=== PATIENT | female | born 1945 | race Caucasian/White ===

== ENCOUNTER 2017-11-24 22:42 | Inpatient (IN) ==
[2017-11-24] MEDS ORDERED: ONDANSETRON 4 MG/2 ML VIAL IV STA (23:05)
[2017-11-24] MEDS ORDERED: methylPREDNISolone SOD SUC 125 MG/2 ML VIAL IV STA (23:05)
[2017-11-24] MEDS ORDERED: LEVOFLOXACIN INJ 750 MG in PREMIX 1 EACH IV STA (23:05)
[2017-11-24] MEDS ORDERED: ALBUTEROL NEB SOLN 5 MG/ML 20 ML/BOTTLE RESP TX SCH (23:30)
[2017-11-24 23:35] LABS: Basophils % 0.2 % (0.0-0.8); Eosinophils # 0.1 10*3/uL (0.0-0.87); Hematocrit 30.4 VOL% (35.7-47.0); Hemoglobin 8.5 GM/DL (12.0-16.0); Immature Granulocytes % 0.5 %; Immature Granulocytes Absolute 0.05 #; Lymphocytes # 0.8 10*3/uL (1.4-4.0); Lymphocytes % 8.5 % (21.3-54.2); Mean Corpuscular Hemoglobin 23 PG (27-34); Mean Corpuscular Volume 80.4 FL (87-102); Mean Platelet Volume 9.7 FL (9.6-12.0); Monocytes # 0.6 10*3/uL (0.11-0.8); Monocytes % 6.6 % (1.7-12.7); Neutrophils # 7.6 10*3/uL (1.4-7.4); Neutrophils % 83.2 % (38.7-73.9); Platelet Count 238 T/CUMM (130-400); Red Blood Count 3.78 MC/CUMM (3.8-5.5); Red Cell Distribution Width 21.4 % (9.3-17.3); White Blood Count 9.2 T/CUMM (4-12)
[2017-11-24] MEDS ORDERED: NALOXONE 0.4 MG/ML VIAL ONE (23:40)
[2017-11-24] MEDS ORDERED: NALOXONE 0.4 MG/ML VIAL IV STA ×2 (23:40→23:43)
[2017-11-24 23:41] LABS: INR 0.9; PT Patient Result 9.4 SECS; Partial Thromboplastin Time 25.6 SECS (0-40)
[2017-11-24 23:48] LABS: Alanine Aminotransferase 16 U/L (13-56); Alkaline Phosphatase 95 U/L (45-117); Aspartate Amino Transferase 17 U/L (0-37); Bilirubin,Total < 0.39 MG/DL (0.2-1.0); Blood Urea Nitrogen 6 MG/DL (7-18); Calcium 8.4 MG/DL (8.5-10.1); Glucose 129 MG/DL (74-106); Osmolality,Calculated 278.4 MOS/KG (273-304); Potassium 3.9 MMOL/L (3.5-5.1); Sodium 140 MMOL/L (136-145); Total Protein 7.4 G/DL (6.4-8.3)
[2017-11-24] MEDS ORDERED: FUROSEMIDE 40 MG/4 ML VIAL IV STA (23:54)
[2017-11-24 23:58] LABS: Troponin I Only < 0.015 NG/ML (0.00-0.045)
[2017-11-25 00:09] LABS: Apearance,Urine Slightly Hazy (Clear); Bacteria,Urine Occasional /HPF (Few); Bilirubin,Urine Negative (Negative); Blood, Urine Negative (Negative); Glucose,Urine (UA) Negative (Negative); Granular Casts,Urine 3 /LPF (0-1); Hyaline Casts,Urine 47 /LPF (0-3); Ketones,Urine Negative (Negative); Mucus,Urine Few /LPF (Occasional); Nitrite,Urine Negative (Negative); Protein,Urine 30 MG/DL; RBC,Urine 2 /HPF (0-4); Squamous Epithelial Cell,Urine Occasional /HPF (0-10); Urine Color Yellow (Yellow); Urine Specific Gravity 1.014 (1.001-1.035); Urine Urobilinogen < 2.0 EU/DL (0.2-1.0); WBC,Urine 2 /HPF (0-6)
[2017-11-25 00:20] LABS: Barbiturates Screen,Urine Negative (Negative); Benzodiazepines Screen,Urine Negative (Negative); Cannabinoid Screen,Urine Negative (Negative); Opiate Screen,Urine Positive (Negative); Phencyclidine Screen,Urine Negative (Negative)
[2017-11-25 00:35] LABS: Hypochromasia 1+
[2017-11-25 00:36] LABS: Anisocytosis 1+; Poikilocytosis 1+; Polychromasia Slight; Target Cells Slight
[2017-11-25] MEDS ORDERED: ALBUTEROL/IPRATROPIUM 3 ML NEB RESP TX STA (01:35)
[2017-11-25] MEDS ORDERED: ENOXAPARIN 100 MG/ML SYRINGE SUBCUT ONE (01:52)
[2017-11-25] MEDS ORDERED: oxyCODONE/ACETAMINOPHEN 5-325 MG TABLET PO PRN (01:52)
[2017-11-25 02:50] LABS: ABG Base Excess 11.2 MMOL/L (-2.5-2.5); ABG HCO3 34.7 MMOL/L (20-26); ABG Oxygen Saturation 80.6 % (95-100); ABG PO2 58.2 MM HG (80-95); ABG TCO2 43.8 MMOL/L (23-27); Allen Test Positive; Pt O2 Delivery Device Other
[2017-11-25 02:58] LABS: ABG PH 7.112 (7.35-7.45)
[2017-11-25] MEDS ORDERED: ALBUTEROL 1.25 MG/3 ML NEB RESP TX PRN (03:00)
[2017-11-25] MEDS: methylPREDNISolone SOD SUC 40 MG/1 ML VIAL IV SCH ×4 (05:26→23:18)
[2017-11-25 05:50] LABS: ABG Base Excess 11.5 MMOL/L (-2.5-2.5); ABG Oxygen Saturation 76.9 % (95-100); ABG PO2 53.1 MM HG (80-95); ABG TCO2 45.1 MMOL/L (23-27)
[2017-11-25 05:53] LABS: ABG PH 7.083 (7.35-7.45)
[2017-11-25] MEDS ORDERED: NALOXONE 0.4 MG/ML VIAL ONE (06:17)
[2017-11-25] MEDS ORDERED: NALOXONE 0.4 MG/ML VIAL IV ONE (06:21)
[2017-11-25] MEDS: ALBUTEROL/IPRATROPIUM 3 ML NEB RESP TX SCH ×3 (07:16→19:11)
[2017-11-25 07:51] LABS: Pt O2 Delivery Device BIPAP
[2017-11-25 07:54] LABS: ABG Base Excess 13.8 MMOL/L (-2.5-2.5); ABG HCO3 37.6 MMOL/L (20-26); ABG Oxygen Saturation 94.2 % (95-100); ABG PO2 76.5 MM HG (80-95); ABG TCO2 43.4 MMOL/L (23-27)
[2017-11-25 07:57] LABS: ABG PH 7.208 (7.35-7.45)
[2017-11-25] MEDS ORDERED: FUROSEMIDE 40 MG/4 ML VIAL ONE (08:31)
[2017-11-25] MEDS: FUROSEMIDE 40 MG/4 ML VIAL IV SCH ×2 (08:47→16:01)
[2017-11-25 11:56] LABS: Allen Test Positive; Pt O2 Delivery Device BIPAP
[2017-11-25 11:57] LABS: ABG Base Excess 18.5 MMOL/L (-2.5-2.5); ABG HCO3 42.5 MMOL/L (20-26); ABG Oxygen Saturation 92.3 % (95-100); ABG PH 7.333 (7.35-7.45); ABG PO2 62.9 MM HG (80-95)
[2017-11-25 11:58] LABS: ABG PCO2 90.3 MM HG (35-48)
[2017-11-25] MEDS: PANTOPRAZOLE 40 MG TABLET PO SCH (16:01)
[2017-11-25] MEDS: ENOXAPARIN 100 MG/ML SYRINGE SUBCUT SCH (16:01)
[2017-11-25] MEDS: THEOPHYLLINE 5.33 MG/ML 30 ML/BOTTLE PO SCH ×2 (16:01→23:18)
[2017-11-25] MEDS: LEVOFLOXACIN INJ 750 MG in PREMIX 1 EACH IV SCH (23:18)
[2017-11-26] LABS: ABG Base Excess 20.6 MMOL/L (-2.5-2.5); ABG HCO3 44.8 MMOL/L (20-26); ABG Oxygen Saturation 86.3 % (95-100); ABG PH 7.417 (7.35-7.45); ABG PO2 52.6 MM HG (80-95); ABG TCO2 45.6 MMOL/L (23-27); Allen Test Positive; Pt O2 Delivery Device BIPAP
[2017-11-26 00:04] LABS: ABG PCO2 75.3 MM HG (35-48)
[2017-11-26] MEDS: ALBUTEROL/IPRATROPIUM 3 ML NEB RESP TX SCH ×4 (00:26→19:22)
[2017-11-26] MEDS: ENOXAPARIN 100 MG/ML SYRINGE SUBCUT SCH ×2 (03:50→14:35)
[2017-11-26 03:53] LABS: ABG Base Excess 20.6 MMOL/L (-2.5-2.5); ABG HCO3 44.7 MMOL/L (20-26); ABG Oxygen Saturation 86.1 % (95-100); ABG PCO2 65.7 MM HG (35-48); ABG PH 7.467 (7.35-7.45); ABG PO2 50.9 MM HG (80-95); ABG TCO2 44.5 MMOL/L (23-27); Allen Test Positive; Pt O2 Delivery Device BIPAP
[2017-11-26 04:31] LABS: Calcium 8.2 MG/DL (8.5-10.1); Potassium 3.4 MMOL/L (3.5-5.1)
[2017-11-26] MEDS: methylPREDNISolone SOD SUC 40 MG/1 ML VIAL IV SCH ×4 (05:51→22:36)
[2017-11-26] MEDS: THEOPHYLLINE 5.33 MG/ML 30 ML/BOTTLE PO SCH ×3 (05:51→22:35)
[2017-11-26] MEDS: FUROSEMIDE 40 MG/4 ML VIAL IV SCH ×2 (08:59→16:48)
[2017-11-26] MEDS: PANTOPRAZOLE 40 MG TABLET PO SCH (08:59)
[2017-11-26] MEDS: LEVOFLOXACIN INJ 750 MG in PREMIX 1 EACH IV SCH (22:35)
[2017-11-27] MEDS: ALBUTEROL/IPRATROPIUM 3 ML NEB RESP TX SCH ×4 (01:05→19:43)
[2017-11-27] MEDS: ENOXAPARIN 100 MG/ML SYRINGE SUBCUT SCH ×2 (02:33→15:34)
[2017-11-27] MEDS: THEOPHYLLINE 5.33 MG/ML 30 ML/BOTTLE PO SCH ×3 (06:49→21:14)
[2017-11-27] MEDS: methylPREDNISolone SOD SUC 40 MG/1 ML VIAL IV SCH ×4 (06:49→22:02)
[2017-11-27 08:53] LABS: ABG Base Excess 16.9 MMOL/L (-2.5-2.5); ABG HCO3 40.8 MMOL/L (20-26); ABG Oxygen Saturation 92.8 % (95-100); ABG PCO2 51.5 MM HG (35-48); ABG PH 7.522 (7.35-7.45); ABG PO2 64.4 MM HG (80-95); ABG TCO2 38.8 MMOL/L (23-27)
[2017-11-27] MEDS: FUROSEMIDE 40 MG/4 ML VIAL IV SCH ×2 (09:06→15:34)
[2017-11-27] MEDS: PANTOPRAZOLE 40 MG TABLET PO SCH (09:08)
[2017-11-27] MEDS ORDERED: POTASSIUM CHLORIDE 20 MEQ TABLET PO ONE (13:43)
[2017-11-27] MEDS: LEVOFLOXACIN INJ 750 MG in PREMIX 1 EACH IV SCH (22:02)
[2017-11-28] MEDS: ALBUTEROL/IPRATROPIUM 3 ML NEB RESP TX SCH ×4 (01:10→20:17)
[2017-11-28] MEDS: ENOXAPARIN 100 MG/ML SYRINGE SUBCUT SCH ×2 (03:02→15:20)
[2017-11-28 03:18] LABS: Basophils % 0.2 % (0.0-0.8); Hematocrit 30.1 VOL% (35.7-47.0); Hemoglobin 9.2 GM/DL (12.0-16.0); Immature Granulocytes % 0.8 %; Immature Granulocytes Absolute 0.05 #; Lymphocytes # 0.5 10*3/uL (1.4-4.0); Lymphocytes % 7.1 % (21.3-54.2); Mean Corpuscular HGB Conc 30.6 GM/DL (32-36); Mean Corpuscular Hemoglobin 22 PG (27-34); Mean Corpuscular Volume 73.2 FL (87-102); Mean Platelet Volume 10.6 FL (9.6-12.0); Monocytes # 0.4 10*3/uL (0.11-0.8); Monocytes % 5.5 % (1.7-12.7); Neutrophils # 5.6 10*3/uL (1.4-7.4); Neutrophils % 86.4 % (38.7-73.9); Platelet Count 309 T/CUMM (130-400); Red Blood Count 4.11 MC/CUMM (3.8-5.5); Red Cell Distribution Width 20.4 % (9.3-17.3); White Blood Count 6.5 T/CUMM (4-12)
[2017-11-28 03:33] LABS: Calcium 8.1 MG/DL (8.5-10.1); Potassium 2.9 MMOL/L (3.5-5.1)
[2017-11-28] MEDS: methylPREDNISolone SOD SUC 40 MG/1 ML VIAL IV SCH ×3 (05:08→22:52)
[2017-11-28] MEDS: THEOPHYLLINE 5.33 MG/ML 30 ML/BOTTLE PO SCH (05:09)
[2017-11-28] MEDS: THEOPHYLLINE ER (24 HR) 300 MG CAPSULE PO SCH (08:47)
[2017-11-28] MEDS: PANTOPRAZOLE 40 MG TABLET PO SCH (08:48)
[2017-11-28] MEDS: POTASSIUM CHLORIDE 20 MEQ TABLET PO SCH ×2 (08:48→21:04)
[2017-11-28] MEDS ORDERED: FUROSEMIDE 40 MG/4 ML VIAL IV SCH (09:00)
[2017-11-28] MEDS: LEVOFLOXACIN INJ 750 MG in PREMIX 1 EACH IV SCH (22:53)
[2017-11-29] MEDS: ALBUTEROL/IPRATROPIUM 3 ML NEB RESP TX SCH ×4 (01:34→19:25)
[2017-11-29 03:59] LABS: Calcium 8.3 MG/DL (8.5-10.1); Osmolality,Calculated 281.7 MOS/KG (273-304); Potassium 3.6 MMOL/L (3.5-5.1)
[2017-11-29 04:42] LABS: ABG Base Excess 7.5 MMOL/L (-2.5-2.5); ABG HCO3 33.6 MMOL/L (20-26); ABG Oxygen Saturation 94.7 % (95-100); ABG PCO2 55.8 MM HG (35-48); ABG PH 7.398 (7.35-7.45); ABG PO2 83.3 MM HG (80-95); ABG TCO2 35.3 MMOL/L (23-27); Allen Test Positive; Pt O2 Delivery Device Other
[2017-11-29] MEDS: ENOXAPARIN 100 MG/ML SYRINGE SUBCUT SCH ×2 (06:19→19:15)
[2017-11-29] MEDS: methylPREDNISolone SOD SUC 40 MG/1 ML VIAL IV SCH ×3 (06:20→22:19)
[2017-11-29] MEDS: POTASSIUM CHLORIDE 20 MEQ TABLET PO SCH ×2 (08:45→20:26)
[2017-11-29] MEDS: THEOPHYLLINE ER (24 HR) 300 MG CAPSULE PO SCH (08:45)
[2017-11-29] MEDS: PANTOPRAZOLE 40 MG TABLET PO SCH (08:45)
[2017-11-29] MEDS: LEVOFLOXACIN INJ 750 MG in PREMIX 1 EACH IV SCH (22:19)
[2017-11-30] MEDS: ALBUTEROL/IPRATROPIUM 3 ML NEB RESP TX SCH ×4 (01:37→19:29)
[2017-11-30] MEDS: ENOXAPARIN 100 MG/ML SYRINGE SUBCUT SCH (06:50)
[2017-11-30] MEDS: methylPREDNISolone SOD SUC 40 MG/1 ML VIAL IV SCH ×2 (08:01→16:04)
[2017-11-30] MEDS: THEOPHYLLINE ER (24 HR) 300 MG CAPSULE PO SCH (09:06)
[2017-11-30] MEDS: POTASSIUM CHLORIDE 20 MEQ TABLET PO SCH ×2 (09:07→20:54)
[2017-11-30] MEDS: PANTOPRAZOLE 40 MG TABLET PO SCH (09:07)
[2017-12-01] MEDS: methylPREDNISolone SOD SUC 40 MG/1 ML VIAL IV SCH ×4 (00:24→23:23)
[2017-12-01] MEDS: LEVOFLOXACIN INJ 750 MG in PREMIX 1 EACH IV SCH ×2 (00:25→23:23)
[2017-12-01] MEDS: ALBUTEROL/IPRATROPIUM 3 ML NEB RESP TX SCH ×4 (01:22→19:39)
[2017-12-01 06:06] LABS: Basophils % 0.1 % (0.0-0.8); Hematocrit 29.6 VOL% (35.7-47.0); Hemoglobin 8.7 GM/DL (12.0-16.0); Immature Granulocytes % 2.1 %; Immature Granulocytes Absolute 0.23 #; Lymphocytes # 0.5 10*3/uL (1.4-4.0); Lymphocytes % 4.8 % (21.3-54.2); Mean Corpuscular HGB Conc 29.4 GM/DL (32-36); Mean Corpuscular Hemoglobin 22 PG (27-34); Mean Corpuscular Volume 75.3 FL (87-102); Mean Platelet Volume 10.4 FL (9.6-12.0); Monocytes # 0.4 10*3/uL (0.11-0.8); Monocytes % 3.4 % (1.7-12.7); Neutrophils # 9.9 10*3/uL (1.4-7.4); Neutrophils % 89.6 % (38.7-73.9); Platelet Count 311 T/CUMM (130-400); Red Blood Count 3.93 MC/CUMM (3.8-5.5); White Blood Count 11.1 T/CUMM (4-12)
[2017-12-01 06:27] LABS: Band Neutrophils 1 % (0-10); Lymphocytes 2 % (20-55); Segmented Neutrophils 94 % (50-85); Total Cells Counted 100
[2017-12-01 06:28] LABS: Calcium 8.7 MG/DL (8.5-10.1); Hypochromasia 1+; Osmolality,Calculated 280.7 MOS/KG (273-304); Ovalocytes Slight; Platelet Estimate Adequate; Potassium 4.4 MMOL/L (3.5-5.1)
[2017-12-01] MEDS ORDERED: ceFAZolin 1,000 MG VIAL ONE (07:39)
[2017-12-01] MEDS ORDERED: DESFLURANE 1 UNIT/15 MINUTE INH ONE (08:56)
[2017-12-01] MEDS ORDERED: PROPOFOL 200 MG/20 ML VIAL IV ONE (08:56)
[2017-12-01] MEDS ORDERED: fentaNYL 100 MCG/2 ML VIAL ONE (08:57)
[2017-12-01] MEDS ORDERED: GLYCOPYRROLATE 0.4 MG/2 ML VIAL ONE (08:57)
[2017-12-01] MEDS ORDERED: ETOMIDATE 40 MG/20 ML VIAL IV ONE (08:57)
[2017-12-01] MEDS ORDERED: MIDAZOLAM 2 MG/2 ML VIAL ONE (08:57)
[2017-12-01] MEDS ORDERED: ONDANSETRON 4 MG/2 ML VIAL ONE (08:57)
[2017-12-01] MEDS ORDERED: METOPROLOL TARTRATE 5 MG/5 ML VIAL IV ONE (08:57)
[2017-12-01] MEDS ORDERED: DEXAMETHASONE 10 MG/1 ML VIAL ONE (08:57)
[2017-12-01] MEDS ORDERED: ROCURONIUM 100 MG/10 ML VIAL IV ONE (08:58)
[2017-12-01] MEDS ORDERED: PHENYLEPHRINE 1 MG/10 ML SYRINGE IV ONE (08:58)
[2017-12-01] MEDS ORDERED: NEOSTIGMINE 10 MG/10 ML VIAL ONE (08:58)
[2017-12-01] MEDS ORDERED: ACETAMINOPHEN 1,000 MG/100 ML VIAL IV ONE (08:58)
[2017-12-01] MEDS: ONDANSETRON 4 MG/2 ML VIAL IV PRN ×4 (09:46→23:23)
[2017-12-01] MEDS: POTASSIUM CHLORIDE 20 MEQ TABLET PO SCH ×2 (10:32→20:36)
[2017-12-01] MEDS: THEOPHYLLINE ER (24 HR) 300 MG CAPSULE PO SCH (10:35)
[2017-12-01] MEDS: PANTOPRAZOLE 40 MG TABLET PO SCH (10:35)
[2017-12-01] MEDS: GABAPENTIN 100 MG CAPSULE PO SCH ×3 (10:54→20:36)
[2017-12-01] MEDS: SERTRALINE 25 MG TABLET PO SCH (10:55)
[2017-12-01] MEDS: CITALOPRAM 40 MG TABLET PO SCH (10:55)
[2017-12-01] MEDS: METHOCARBAMOL 500 MG TABLET PO SCH ×2 (10:55→20:36)
[2017-12-01] MEDS: busPIRone 10 MG TABLET PO SCH ×3 (10:55→20:36)
[2017-12-01] MEDS: risperiDONE 0.5 MG TABLET PO SCH (10:55)
[2017-12-01] MEDS: PROMETHAZINE 25 MG TABLET PO SCH ×3 (10:55→20:35)
[2017-12-01] MEDS: PENTOXIFYLLINE 400 MG TABLET PO SCH (10:55)
[2017-12-01] MEDS: FAMOTIDINE 20 MG TABLET PO SCH (11:02)
[2017-12-01] MEDS: oxyCODONE IR 5 MG TABLET PO PRN (20:36)
[2017-12-01] MEDS ORDERED: ZALEPLON 5 MG CAPSULE PO SCH (21:00)
[2017-12-01] MEDS ORDERED: MIRTAZAPINE 15 MG TABLET PO SCH (21:00)
[2017-12-02] MEDS: ALBUTEROL/IPRATROPIUM 3 ML NEB RESP TX SCH ×5 (01:01→19:37)
[2017-12-02] MEDS: oxyCODONE IR 5 MG TABLET PO PRN (03:58)
[2017-12-02] MEDS: ONDANSETRON 4 MG/2 ML VIAL IV PRN ×2 (05:41→13:33)
[2017-12-02] MEDS: FAMOTIDINE 20 MG TABLET PO SCH ×2 (05:41→09:53)
[2017-12-02] MEDS: methylPREDNISolone SOD SUC 40 MG/1 ML VIAL IV SCH ×2 (06:21→20:08)
[2017-12-02] MEDS: THEOPHYLLINE ER (24 HR) 300 MG CAPSULE PO SCH (09:52)
[2017-12-02] MEDS: SERTRALINE 25 MG TABLET PO SCH (09:52)
[2017-12-02] MEDS: POTASSIUM CHLORIDE 20 MEQ TABLET PO SCH ×2 (09:52→20:07)
[2017-12-02] MEDS: PANTOPRAZOLE 40 MG TABLET PO SCH (09:52)
[2017-12-02] MEDS: CITALOPRAM 40 MG TABLET PO SCH (09:53)
[2017-12-02] MEDS: busPIRone 10 MG TABLET PO SCH (09:53)
[2017-12-02] MEDS: PROMETHAZINE 25 MG TABLET PO SCH ×2 (09:54→20:08)
[2017-12-02] MEDS: METHOCARBAMOL 500 MG TABLET PO SCH (09:54)
[2017-12-02] MEDS: GABAPENTIN 100 MG CAPSULE PO SCH ×2 (09:54→20:07)
[2017-12-02] MEDS: PENTOXIFYLLINE 400 MG TABLET PO SCH (09:55)
[2017-12-02] MEDS: risperiDONE 0.5 MG TABLET PO SCH (09:55)
[2017-12-02] MEDS: ENOXAPARIN 30 MG/0.3 ML SYRINGE SUBCUT SCH (09:59)
[2017-12-02] MEDS ORDERED: methylPREDNISolone SOD SUC 40 MG/1 ML VIAL IV SCH (18:30)
[2017-12-02] MEDS: busPIRone 5 MG TABLET PO SCH (20:07)
[2017-12-02] MEDS: MIRTAZAPINE 15 MG TABLET PO SCH (20:08)
[2017-12-02] MEDS: oxyCODONE IR 5 MG TABLET PO SCH (20:08)
[2017-12-02] MEDS: ZALEPLON 5 MG CAPSULE PO PRN (20:08)
[2017-12-02] MEDS: LEVOFLOXACIN INJ 750 MG in PREMIX 1 EACH IV SCH (22:45)
[2017-12-03] MEDS: ALBUTEROL/IPRATROPIUM 3 ML NEB RESP TX SCH ×4 (00:54→19:01)
[2017-12-03 06:37] LABS: Basophils % 0.2 % (0.0-0.8); Hematocrit 29.8 VOL% (35.7-47.0); Hemoglobin 9.1 GM/DL (12.0-16.0); Immature Granulocytes Absolute 0.35 #; Lymphocytes % 11.3 % (21.3-54.2); Mean Corpuscular HGB Conc 30.5 GM/DL (32-36); Mean Corpuscular Hemoglobin 23 PG (27-34); Mean Corpuscular Volume 74.1 FL (87-102); Mean Platelet Volume 10.1 FL (9.6-12.0); Monocytes # 0.9 10*3/uL (0.11-0.8); Neutrophils # 6.6 10*3/uL (1.4-7.4); Neutrophils % 74.5 % (38.7-73.9); Platelet Count 350 T/CUMM (130-400); Red Blood Count 4.02 MC/CUMM (3.8-5.5); Red Cell Distribution Width 20.6 % (9.3-17.3); White Blood Count 8.8 T/CUMM (4-12)
[2017-12-03 06:54] LABS: Calcium 8.7 MG/DL (8.5-10.1); Potassium 4.6 MMOL/L (3.5-5.1)
[2017-12-03] MEDS: methylPREDNISolone SOD SUC 40 MG/1 ML VIAL IV SCH (09:20)
[2017-12-03] MEDS: ENOXAPARIN 30 MG/0.3 ML SYRINGE SUBCUT SCH (09:22)
[2017-12-03] MEDS: THEOPHYLLINE ER (24 HR) 300 MG CAPSULE PO SCH (09:23)
[2017-12-03] MEDS: busPIRone 5 MG TABLET PO SCH ×2 (09:23→20:21)
[2017-12-03] MEDS: PANTOPRAZOLE 40 MG TABLET PO SCH (09:23)
[2017-12-03] MEDS: FAMOTIDINE 20 MG TABLET PO SCH (09:23)
[2017-12-03] MEDS: PROMETHAZINE 25 MG TABLET PO SCH ×2 (09:23→20:21)
[2017-12-03] MEDS: oxyCODONE IR 5 MG TABLET PO SCH ×2 (09:24→20:21)
[2017-12-03] MEDS: risperiDONE 0.5 MG TABLET PO SCH (09:24)
[2017-12-03] MEDS: SERTRALINE 25 MG TABLET PO SCH (09:24)
[2017-12-03] MEDS: POTASSIUM CHLORIDE 20 MEQ TABLET PO SCH ×2 (09:24→20:20)
[2017-12-03] MEDS: PENTOXIFYLLINE 400 MG TABLET PO SCH (09:24)
[2017-12-03] MEDS: MELOXICAM 7.5 MG TABLET PO SCH (14:08)
[2017-12-03] MEDS: ONDANSETRON 4 MG/2 ML VIAL IV PRN (15:27)
[2017-12-03] MEDS: GABAPENTIN 100 MG CAPSULE PO SCH (20:21)
[2017-12-03] MEDS: MIRTAZAPINE 15 MG TABLET PO SCH (20:21)
[2017-12-03] MEDS: ZALEPLON 5 MG CAPSULE PO PRN (20:21)
[2017-12-03] MEDS: ALUMINUM/MAGNES/SIMETH MAX STR 30 ML UDCUP PO PRN (22:37)
[2017-12-03] MEDS: LEVOFLOXACIN INJ 750 MG in PREMIX 1 EACH IV SCH (22:37)
[2017-12-04] MEDS: ALBUTEROL/IPRATROPIUM 3 ML NEB RESP TX SCH ×4 (00:16→19:10)
[2017-12-04] MEDS: ALUMINUM/MAGNES/SIMETH MAX STR 30 ML UDCUP PO PRN (03:11)
[2017-12-04] MEDS: MELOXICAM 7.5 MG TABLET PO SCH (08:39)
[2017-12-04] MEDS: PANTOPRAZOLE 40 MG TABLET PO SCH (08:39)
[2017-12-04] MEDS: oxyCODONE IR 5 MG TABLET PO SCH ×2 (08:39→20:39)
[2017-12-04] MEDS: PENTOXIFYLLINE 400 MG TABLET PO SCH (08:40)
[2017-12-04] MEDS: PROMETHAZINE 25 MG TABLET PO SCH ×2 (08:40→20:39)
[2017-12-04] MEDS: SERTRALINE 25 MG TABLET PO SCH (08:41)
[2017-12-04] MEDS: FAMOTIDINE 20 MG TABLET PO SCH (08:41)
[2017-12-04] MEDS: busPIRone 5 MG TABLET PO SCH ×2 (08:42→20:39)
[2017-12-04] MEDS: risperiDONE 0.5 MG TABLET PO SCH (08:43)
[2017-12-04] MEDS: THEOPHYLLINE ER (24 HR) 300 MG CAPSULE PO SCH (08:43)
[2017-12-04] MEDS: POTASSIUM CHLORIDE 20 MEQ TABLET PO SCH ×2 (08:44→20:39)
[2017-12-04] MEDS ORDERED: predniSONE 10 MG TABLET PO SCH (09:00)
[2017-12-04] MEDS ORDERED: predniSONE 20 MG TABLET PO SCH (10:02)
[2017-12-04] MEDS: ENOXAPARIN 30 MG/0.3 ML SYRINGE SUBCUT SCH (10:39)
[2017-12-04] MEDS: MIRTAZAPINE 15 MG TABLET PO SCH (20:38)
[2017-12-04] MEDS: ZALEPLON 5 MG CAPSULE PO PRN ×2 (20:38→23:10)
[2017-12-04] MEDS: GABAPENTIN 100 MG CAPSULE PO SCH (20:39)
[2017-12-04] MEDS: LEVOFLOXACIN INJ 750 MG in PREMIX 1 EACH IV SCH (23:05)
[2017-12-05] MEDS: ALBUTEROL/IPRATROPIUM 3 ML NEB RESP TX SCH ×4 (00:05→20:06)
[2017-12-05] MEDS: MELOXICAM 7.5 MG TABLET PO SCH (08:07)
[2017-12-05] MEDS: FAMOTIDINE 20 MG TABLET PO SCH (08:07)
[2017-12-05] MEDS: oxyCODONE IR 5 MG TABLET PO SCH ×2 (08:08→20:26)
[2017-12-05] MEDS: THEOPHYLLINE ER (24 HR) 300 MG CAPSULE PO SCH (08:08)
[2017-12-05] MEDS: POTASSIUM CHLORIDE 20 MEQ TABLET PO SCH ×2 (08:08→20:26)
[2017-12-05] MEDS: PENTOXIFYLLINE 400 MG TABLET PO SCH (08:08)
[2017-12-05] MEDS: busPIRone 5 MG TABLET PO SCH ×2 (08:08→20:26)
[2017-12-05] MEDS: SERTRALINE 25 MG TABLET PO SCH (08:08)
[2017-12-05] MEDS: risperiDONE 0.5 MG TABLET PO SCH (08:09)
[2017-12-05] MEDS: PROMETHAZINE 25 MG TABLET PO SCH ×2 (08:09→20:26)
[2017-12-05] MEDS: PANTOPRAZOLE 40 MG TABLET PO SCH (08:09)
[2017-12-05] MEDS: ENOXAPARIN 30 MG/0.3 ML SYRINGE SUBCUT SCH ×2 (08:09→09:53)
[2017-12-05] MEDS: MIRTAZAPINE 15 MG TABLET PO SCH (20:26)
[2017-12-05] MEDS: GABAPENTIN 100 MG CAPSULE PO SCH (20:26)
[2017-12-06] MEDS: ALBUTEROL/IPRATROPIUM 3 ML NEB RESP TX SCH ×4 (01:04→19:31)
[2017-12-06 05:22] LABS: Basophils % 0.1 % (0.0-0.8); Eosinophils # 0.1 10*3/uL (0.0-0.87); Eosinophils % 1.7 % (0.00-10.9); Hematocrit 25.6 VOL% (35.7-47.0); Hemoglobin 7.7 GM/DL (12.0-16.0); Immature Granulocytes % 5.9 %; Immature Granulocytes Absolute 0.49 #; Lymphocytes # 2.1 10*3/uL (1.4-4.0); Lymphocytes % 25.1 % (21.3-54.2); Mean Corpuscular HGB Conc 30.1 GM/DL (32-36); Mean Corpuscular Hemoglobin 23 PG (27-34); Mean Corpuscular Volume 75.1 FL (87-102); Mean Platelet Volume 10.2 FL (9.6-12.0); Monocytes # 0.6 10*3/uL (0.11-0.8); Monocytes % 7.7 % (1.7-12.7); Neutrophils % 59.5 % (38.7-73.9); Platelet Count 278 T/CUMM (130-400); Red Blood Count 3.41 MC/CUMM (3.8-5.5); Red Cell Distribution Width 21.9 % (9.3-17.3); White Blood Count 8.3 T/CUMM (4-12)
[2017-12-06 05:33] LABS: Calcium 8.2 MG/DL (8.5-10.1); Osmolality,Calculated 278.5 MOS/KG (273-304)
[2017-12-06 05:48] LABS: Band Neutrophils 1 % (0-10); Eosinophils 1 % (0-10); Lymphocytes 23 % (20-55); Segmented Neutrophils 67 % (50-85); Total Cells Counted 100
[2017-12-06 05:49] LABS: Hypochromasia 1+; Ovalocytes Slight; Platelet Estimate Adequate
[2017-12-06] MEDS: PROMETHAZINE 25 MG TABLET PO SCH ×2 (10:55→20:55)
[2017-12-06] MEDS: PANTOPRAZOLE 40 MG TABLET PO SCH (10:55)
[2017-12-06] MEDS: busPIRone 5 MG TABLET PO SCH ×2 (10:55→20:55)
[2017-12-06] MEDS: risperiDONE 0.5 MG TABLET PO SCH (10:56)
[2017-12-06] MEDS: FAMOTIDINE 20 MG TABLET PO SCH (10:56)
[2017-12-06] MEDS: THEOPHYLLINE ER (24 HR) 300 MG CAPSULE PO SCH (10:56)
[2017-12-06] MEDS: MELOXICAM 7.5 MG TABLET PO SCH (10:56)
[2017-12-06] MEDS: PENTOXIFYLLINE 400 MG TABLET PO SCH (10:57)
[2017-12-06] MEDS: SERTRALINE 25 MG TABLET PO SCH (10:57)
[2017-12-06] MEDS: oxyCODONE IR 5 MG TABLET PO SCH ×2 (10:57→20:56)
[2017-12-06] MEDS: POTASSIUM CHLORIDE 20 MEQ TABLET PO SCH ×2 (10:57→20:55)
[2017-12-06] MEDS: ENOXAPARIN 30 MG/0.3 ML SYRINGE SUBCUT SCH (10:58)
[2017-12-06] MEDS: MIRTAZAPINE 15 MG TABLET PO SCH (20:55)
[2017-12-06] MEDS: GABAPENTIN 100 MG CAPSULE PO SCH (20:55)
[2017-12-06] MEDS: ZALEPLON 5 MG CAPSULE PO PRN (20:57)
[2017-12-07] MEDS: ALBUTEROL/IPRATROPIUM 3 ML NEB RESP TX SCH ×5 (00:31→23:49)
[2017-12-07] MEDS: MELOXICAM 7.5 MG TABLET PO SCH (10:49)
[2017-12-07] MEDS: PENTOXIFYLLINE 400 MG TABLET PO SCH (10:49)
[2017-12-07] MEDS: PANTOPRAZOLE 40 MG TABLET PO SCH (10:49)
[2017-12-07] MEDS: FAMOTIDINE 20 MG TABLET PO SCH (10:49)
[2017-12-07] MEDS: PROMETHAZINE 25 MG TABLET PO SCH ×2 (10:49→20:33)
[2017-12-07] MEDS: busPIRone 5 MG TABLET PO SCH ×2 (10:50→20:33)
[2017-12-07] MEDS: risperiDONE 0.5 MG TABLET PO SCH (10:50)
[2017-12-07] MEDS: oxyCODONE IR 5 MG TABLET PO SCH ×2 (10:50→20:34)
[2017-12-07] MEDS: THEOPHYLLINE ER (24 HR) 300 MG CAPSULE PO SCH (10:50)
[2017-12-07] MEDS: SERTRALINE 25 MG TABLET PO SCH (10:50)
[2017-12-07] MEDS: POTASSIUM CHLORIDE 20 MEQ TABLET PO SCH ×2 (10:51→20:35)
[2017-12-07] MEDS: ENOXAPARIN 30 MG/0.3 ML SYRINGE SUBCUT SCH (12:08)
[2017-12-07 16:32] LABS: % Iron Saturation 4.8 % (18-50)
[2017-12-07] MEDS: MIRTAZAPINE 15 MG TABLET PO SCH (20:33)
[2017-12-07] MEDS: GABAPENTIN 100 MG CAPSULE PO SCH (20:34)
[2017-12-07] MEDS: APIXABAN 2.5 MG TABLET PO SCH (20:34)
[2017-12-07] MEDS ORDERED: APIXABAN 5 MG TABLET PO SCH (21:00)
[2017-12-08 06:05] LABS: Eosinophils # 0.2 10*3/uL (0.0-0.87); Eosinophils % 2.6 % (0.00-10.9); Hematocrit 24.8 VOL% (35.7-47.0); Hemoglobin 7.3 GM/DL (12.0-16.0); Immature Granulocytes % 2.1 %; Immature Granulocytes Absolute 0.15 #; Lymphocytes # 1.6 10*3/uL (1.4-4.0); Lymphocytes % 22.6 % (21.3-54.2); Mean Corpuscular HGB Conc 29.4 GM/DL (32-36); Mean Corpuscular Hemoglobin 23 PG (27-34); Mean Corpuscular Volume 77.5 FL (87-102); Mean Platelet Volume 10.2 FL (9.6-12.0); Monocytes # 0.6 10*3/uL (0.11-0.8); Monocytes % 8.9 % (1.7-12.7); Neutrophils # 4.6 10*3/uL (1.4-7.4); Neutrophils % 63.8 % (38.7-73.9); Platelet Count 260 T/CUMM (130-400); Red Cell Distribution Width 22.3 % (9.3-17.3); White Blood Count 7.2 T/CUMM (4-12)
[2017-12-08] MEDS: ALBUTEROL/IPRATROPIUM 3 ML NEB RESP TX SCH ×2 (07:00→19:52)
[2017-12-08 07:08] LABS: Anisocytosis 2+; Band Neutrophils 2 % (0-10); Lymphocytes 26 % (20-55); Microcytosis 3+; Platelet Estimate Normal; Polychromasia 1+; Segmented Neutrophils 67 % (50-85); Target Cells 1+; Total Cells Counted 100
[2017-12-08] MEDS: FAMOTIDINE 20 MG TABLET PO SCH (09:10)
[2017-12-08] MEDS: PROMETHAZINE 25 MG TABLET PO SCH ×2 (09:11→20:15)
[2017-12-08] MEDS: PANTOPRAZOLE 40 MG TABLET PO SCH (09:11)
[2017-12-08] MEDS: busPIRone 5 MG TABLET PO SCH ×2 (09:11→20:15)
[2017-12-08] MEDS: THEOPHYLLINE ER (24 HR) 300 MG CAPSULE PO SCH (09:11)
[2017-12-08] MEDS: risperiDONE 0.5 MG TABLET PO SCH (09:12)
[2017-12-08] MEDS: POTASSIUM CHLORIDE 20 MEQ TABLET PO SCH ×2 (09:12→20:15)
[2017-12-08] MEDS: SERTRALINE 25 MG TABLET PO SCH (09:12)
[2017-12-08] MEDS: APIXABAN 2.5 MG TABLET PO SCH ×2 (09:12→20:15)
[2017-12-08] MEDS: oxyCODONE IR 5 MG TABLET PO SCH ×2 (09:13→20:16)
[2017-12-08] MEDS: PENTOXIFYLLINE 400 MG TABLET PO SCH (09:13)
[2017-12-08] MEDS ORDERED: IRON SUCROSE 200 MG in SODIUM CHLORIDE 0.9% 100 ML IV ONE (13:00)
[2017-12-08] MEDS: GABAPENTIN 100 MG CAPSULE PO SCH (20:15)
[2017-12-08] MEDS: MIRTAZAPINE 15 MG TABLET PO SCH (20:16)
[2017-12-08] MEDS: ZALEPLON 5 MG CAPSULE PO PRN (20:17)
[2017-12-09] MEDS: ALBUTEROL/IPRATROPIUM 3 ML NEB RESP TX SCH ×4 (07:55→19:20)
[2017-12-09] MEDS: PROMETHAZINE 25 MG TABLET PO SCH ×2 (09:19→20:44)
[2017-12-09] MEDS: THEOPHYLLINE ER (24 HR) 300 MG CAPSULE PO SCH (09:19)
[2017-12-09] MEDS: PANTOPRAZOLE 40 MG TABLET PO SCH (09:20)
[2017-12-09] MEDS: FAMOTIDINE 20 MG TABLET PO SCH (09:20)
[2017-12-09] MEDS: POTASSIUM CHLORIDE 20 MEQ TABLET PO SCH ×2 (09:20→20:46)
[2017-12-09] MEDS: APIXABAN 2.5 MG TABLET PO SCH ×2 (09:21→20:44)
[2017-12-09] MEDS: risperiDONE 0.5 MG TABLET PO SCH (09:21)
[2017-12-09] MEDS: busPIRone 5 MG TABLET PO SCH ×2 (09:21→20:44)
[2017-12-09] MEDS: SERTRALINE 25 MG TABLET PO SCH (09:21)
[2017-12-09] MEDS: oxyCODONE IR 5 MG TABLET PO SCH ×2 (09:22→20:45)
[2017-12-09] MEDS: PENTOXIFYLLINE 400 MG TABLET PO SCH (09:22)
[2017-12-09] MEDS: methylPREDNISolone SOD SUC 125 MG/2 ML VIAL IV SCH ×2 (16:00→23:33)
[2017-12-09] MEDS: GABAPENTIN 100 MG CAPSULE PO SCH (20:45)
[2017-12-09] MEDS: MIRTAZAPINE 15 MG TABLET PO SCH (20:45)
[2017-12-09] MEDS: ZALEPLON 5 MG CAPSULE PO PRN ×2 (20:45→23:23)
[2017-12-09] MEDS: FERROUS SULFATE 325 MG TABLET PO SCH (20:46)
[2017-12-10] MEDS: ALBUTEROL/IPRATROPIUM 3 ML NEB RESP TX SCH ×4 (00:36→18:51)
[2017-12-10 05:15] LABS: Basophils % 0.2 % (0.0-0.8); Hematocrit 26.3 VOL% (35.7-47.0); Hemoglobin 8.1 GM/DL (12.0-16.0); Immature Granulocytes Absolute 0.06 #; Lymphocytes # 0.3 10*3/uL (1.4-4.0); Lymphocytes % 5.2 % (21.3-54.2); Mean Corpuscular HGB Conc 30.8 GM/DL (32-36); Mean Corpuscular Hemoglobin 24 PG (27-34); Mean Corpuscular Volume 76.5 FL (87-102); Mean Platelet Volume 9.6 FL (9.6-12.0); Monocytes # 0.1 10*3/uL (0.11-0.8); Neutrophils # 5.4 10*3/uL (1.4-7.4); Neutrophils % 92.6 % (38.7-73.9); Platelet Count 256 T/CUMM (130-400); Red Blood Count 3.44 MC/CUMM (3.8-5.5); Red Cell Distribution Width 21.7 % (9.3-17.3); White Blood Count 5.8 T/CUMM (4-12)
[2017-12-10 05:42] LABS: Anisocytosis 2+; Band Neutrophils 3 % (0-10); Hypochromasia 2+; Lymphocytes 4 % (20-55); Macrocytosis 1+; Microcytosis 1+; Platelet Estimate Normal; Poikilocytosis 2+; Segmented Neutrophils 91 % (50-85); Total Cells Counted 100
[2017-12-10 05:43] LABS: Acanthocytes Few; Ovalocytes Few; Target Cells 1+
[2017-12-10 05:46] LABS: Calcium 8.9 MG/DL (8.5-10.1); Osmolality,Calculated 277.7 MOS/KG (273-304); Potassium 4.2 MMOL/L (3.5-5.1)
[2017-12-10] MEDS: THEOPHYLLINE ER (24 HR) 300 MG CAPSULE PO SCH (09:48)
[2017-12-10] MEDS: SERTRALINE 25 MG TABLET PO SCH (09:48)
[2017-12-10] MEDS: PANTOPRAZOLE 40 MG TABLET PO SCH (09:48)
[2017-12-10] MEDS: PROMETHAZINE 25 MG TABLET PO SCH ×2 (09:49→20:21)
[2017-12-10] MEDS: busPIRone 5 MG TABLET PO SCH ×2 (09:49→20:21)
[2017-12-10] MEDS: POTASSIUM CHLORIDE 20 MEQ TABLET PO SCH ×2 (09:49→20:21)
[2017-12-10] MEDS: FAMOTIDINE 20 MG TABLET PO SCH (09:49)
[2017-12-10] MEDS: PENTOXIFYLLINE 400 MG TABLET PO SCH (09:50)
[2017-12-10] MEDS: oxyCODONE IR 5 MG TABLET PO SCH ×2 (09:50→20:21)
[2017-12-10] MEDS: risperiDONE 0.5 MG TABLET PO SCH (09:50)
[2017-12-10] MEDS: FERROUS SULFATE 325 MG TABLET PO SCH ×2 (09:50→20:21)
[2017-12-10] MEDS: APIXABAN 2.5 MG TABLET PO SCH ×2 (09:50→20:21)
[2017-12-10] MEDS: methylPREDNISolone SOD SUC 125 MG/2 ML VIAL IV SCH ×2 (09:51→15:45)
[2017-12-10] MEDS: FUROSEMIDE 40 MG/4 ML VIAL IV SCH (16:39)
[2017-12-10] MEDS: NICOTINE 21 MG/24 HR PATCH TRANSDERM SCH (16:40)
[2017-12-10] MEDS: GABAPENTIN 100 MG CAPSULE PO SCH (20:21)
[2017-12-10] MEDS: ZALEPLON 5 MG CAPSULE PO PRN ×2 (20:21→23:35)
[2017-12-10] MEDS: MIRTAZAPINE 15 MG TABLET PO SCH (20:21)
[2017-12-11] MEDS: methylPREDNISolone SOD SUC 125 MG/2 ML VIAL IV SCH ×3 (00:50→16:55)
[2017-12-11] MEDS: ALBUTEROL/IPRATROPIUM 3 ML NEB RESP TX SCH ×3 (01:15→13:13)
[2017-12-11 05:10] LABS: Basophils % 0.1 % (0.0-0.8); Hematocrit 25.8 VOL% (35.7-47.0); Immature Granulocytes % 0.9 %; Immature Granulocytes Absolute 0.11 #; Lymphocytes # 0.3 10*3/uL (1.4-4.0); Lymphocytes % 2.8 % (21.3-54.2); Mean Corpuscular Hemoglobin 23 PG (27-34); Mean Platelet Volume 10.1 FL (9.6-12.0); Monocytes # 0.2 10*3/uL (0.11-0.8); Neutrophils # 11.2 10*3/uL (1.4-7.4); Neutrophils % 94.2 % (38.7-73.9); Platelet Count 263 T/CUMM (130-400); Red Blood Count 3.44 MC/CUMM (3.8-5.5); Red Cell Distribution Width 22.1 % (9.3-17.3); White Blood Count 11.9 T/CUMM (4-12)
[2017-12-11 05:34] LABS: Calcium 8.7 MG/DL (8.5-10.1); Osmolality,Calculated 282.5 MOS/KG (273-304)
[2017-12-11 06:17] LABS: Band Neutrophils 3 % (0-10); Lymphocytes 2 % (20-55); Platelet Estimate Normal; Segmented Neutrophils 95 % (50-85); Total Cells Counted 100
[2017-12-11 06:18] LABS: Anisocytosis 2+; Poikilocytosis 1+; Polychromasia 1+; Target Cells Few
[2017-12-11] MEDS: FUROSEMIDE 40 MG/4 ML VIAL IV SCH ×2 (10:08→16:54)
[2017-12-11] MEDS: NICOTINE 21 MG/24 HR PATCH TRANSDERM SCH (10:08)
[2017-12-11] MEDS: FAMOTIDINE 20 MG TABLET PO SCH (10:11)
[2017-12-11] MEDS: busPIRone 5 MG TABLET PO SCH (10:11)
[2017-12-11] MEDS: APIXABAN 2.5 MG TABLET PO SCH (10:12)
[2017-12-11] MEDS: SERTRALINE 25 MG TABLET PO SCH (10:12)
[2017-12-11] MEDS: PANTOPRAZOLE 40 MG TABLET PO SCH (10:12)
[2017-12-11] MEDS: risperiDONE 0.5 MG TABLET PO SCH (10:12)
[2017-12-11] MEDS: FERROUS SULFATE 325 MG TABLET PO SCH (10:12)
[2017-12-11] MEDS: THEOPHYLLINE ER (24 HR) 300 MG CAPSULE PO SCH (10:12)
[2017-12-11] MEDS: oxyCODONE IR 5 MG TABLET PO SCH (10:12)
[2017-12-11] MEDS: PENTOXIFYLLINE 400 MG TABLET PO SCH (10:13)
[2017-12-11] MEDS: POTASSIUM CHLORIDE 20 MEQ TABLET PO SCH (10:13)
[2017-12-11] MEDS: PROMETHAZINE 25 MG TABLET PO SCH (10:13)
[2017-12-11 16:33] VITALS: BP 141/86
== END 2017-12-11 16:25 | disposition swing bed (61) | DRG 981 ==
LOC: EDBD → EDUNIT# → N.ED 22:42 → N.CC 11-25 01:40 → N.EDINP 11-25 01:44 → SUATTDRO 11-25 01:44 → N.CC 11-25 02:14 → N.3E 12-02 13:24
PROVIDERS: ADMIT Family Medicine; ATTEND Internal Medicine

== ENCOUNTER 2018-06-25 00:46 | Inpatient (IN) ==
[2018-06-25] MEDS ORDERED: ALBUTEROL 2.5 MG/3 ML NEB RESP TX PRN (03:38)
[2018-06-25] MEDS ORDERED: ONDANSETRON 4 MG/2 ML VIAL IV PRN (03:38)
[2018-06-25] MEDS ORDERED: ACETAMINOPHEN 325 MG TABLET PO PRN (03:38)
[2018-06-25] MEDS ORDERED: PROMETHAZINE 25 MG/1 ML VIAL IM PRN (03:38)
[2018-06-25] MEDS ORDERED: GLUCAGON 1 MG VIAL IM PRN (03:53)
[2018-06-25] MEDS ORDERED: DEXTROSE 50% 25 GM/50 ML SYRINGE IV PRN (03:53)
[2018-06-25] MEDS ORDERED: NALOXONE 0.4 MG/ML VIAL ONE (04:18)
[2018-06-25] MEDS ORDERED: NALOXONE 0.4 MG/ML VIAL IV ONE (04:20)
[2018-06-25] MEDS: methylPREDNISolone SOD SUC 40 MG/1 ML VIAL IV SCH ×3 (04:47→21:24)
[2018-06-25] MEDS: ENOXAPARIN 120 MG/0.8 ML SYRINGE SUBCUT SCH ×2 (04:49→16:18)
[2018-06-25] MEDS: LEVOFLOXACIN INJ 750 MG in PREMIX 1 EACH IV SCH (04:59)
[2018-06-25 07:10] LABS: Basophils % 0.2 % (0.0-0.8); Hematocrit 27.6 VOL% (35.7-47.0); Immature Granulocytes % 2.5 %; Immature Granulocytes Absolute 0.11 #; Lymphocytes # 0.3 10*3/uL (1.4-4.0); Mean Corpuscular HGB Conc 25.4 GM/DL (32-36); Mean Corpuscular Hemoglobin 21 PG (27-34); Mean Corpuscular Volume 81.4 FL (87-102); Monocytes # 0.1 10*3/uL (0.11-0.8); Monocytes % 2.2 % (1.7-12.7); NRBC # 0.07 10*3/uL; Neutrophils % 89.1 % (38.7-73.9); Platelet Count 197 T/CUMM (130-400); Red Blood Count 3.39 MC/CUMM (3.8-5.5); Red Cell Distribution Width 23.7 % (9.3-17.3); White Blood Count 4.5 T/CUMM (4-12)
[2018-06-25] MEDS: ALBUTEROL/IPRATROPIUM 3 ML NEB RESP TX SCH ×3 (07:10→20:06)
[2018-06-25 07:23] LABS: Alanine Aminotransferase 11 U/L (13-56); Albumin 2.9 G/DL (3.4-5.0); Alkaline Phosphatase 76 U/L (45-117); Aspartate Amino Transferase 13 U/L (0-37); Blood Urea Nitrogen 15 MG/DL (7-18); Glucose 112 MG/DL (74-106); Osmolality,Calculated 278.5 MOS/KG (273-304); Potassium 4.1 MMOL/L (3.5-5.1); Sodium 139 MMOL/L (136-145); Total Protein 6.9 G/DL (6.4-8.3)
[2018-06-25 07:26] LABS: Lymphocytes 7 % (20-55); Nucleated Red Blood Cells 4 (0-5); Platelet Estimate Adequate; Segmented Neutrophils 91 % (50-85); Total Cells Counted 100
[2018-06-25 07:27] LABS: Hypochromasia 1+; Macrocytosis Slight; Ovalocytes Slight
[2018-06-25] MEDS: INSULIN REGULAR 100 UNIT/ML SUBCUT SCH ×4 (07:48→21:24)
[2018-06-25 07:53] LABS: Allen Test Positive; Pt O2 Delivery Device BIPAP
[2018-06-25] MEDS ORDERED: SODIUM CHLORIDE 0.9% 1,000 ML IV PRN (08:05)
[2018-06-25] MEDS ORDERED: FUROSEMIDE 20 MG/2 ML VIAL IV PRN (08:05)
[2018-06-25 08:15] LABS: ABG Base Excess 26.8 MMOL/L (-2.5-2.5); ABG HCO3 55.2 MMOL/L (20-26); ABG Oxygen Saturation 92.2 % (95-100); ABG PH 7.404 (7.35-7.45); ABG PO2 65.4 MM HG (80-95)
[2018-06-25 08:16] LABS: ABG PCO2 90.4 MM HG (35-48)
[2018-06-25] MEDS: AMINOPHYLLINE 1,000 MG in SODIUM CHLORIDE 0.9% 460 ML IV SCH (10:56)
[2018-06-25] MEDS ORDERED: FUROSEMIDE 20 MG/2 ML VIAL IV SCH (16:00)
[2018-06-25] MEDS: NYSTATIN POWDER 15 GM BOTTLE TOP SCH ×2 (17:28→21:43)
[2018-06-25] MEDS ORDERED: hydrALAZINE 20 MG/1 ML VIAL IV PRN (17:54)
[2018-06-25 20:15] LABS: Hematocrit 27.6 VOL% (35.7-47.0); Hemoglobin 7.8 GM/DL (12.0-16.0)
[2018-06-26] MEDS: ALBUTEROL/IPRATROPIUM 3 ML NEB RESP TX SCH ×4 (00:35→20:13)
[2018-06-26] MEDS: AMINOPHYLLINE 1,000 MG in SODIUM CHLORIDE 0.9% 460 ML IV SCH (04:33)
[2018-06-26] MEDS: LEVOFLOXACIN INJ 750 MG in PREMIX 1 EACH IV SCH (04:34)
[2018-06-26] MEDS: methylPREDNISolone SOD SUC 40 MG/1 ML VIAL IV SCH ×3 (05:06→21:21)
[2018-06-26] MEDS: ENOXAPARIN 120 MG/0.8 ML SYRINGE SUBCUT SCH (05:06)
[2018-06-26 05:33] LABS: Hematocrit 26.5 VOL% (35.7-47.0); Immature Granulocytes % 0.8 %; Immature Granulocytes Absolute 0.04 #; Lymphocytes # 1.1 10*3/uL (1.4-4.0); Mean Corpuscular HGB Conc 27.5 GM/DL (32-36); Mean Corpuscular Hemoglobin 21 PG (27-34); Mean Corpuscular Volume 76.4 FL (87-102); Mean Platelet Volume 10.1 FL (9.6-12.0); Monocytes # 0.8 10*3/uL (0.11-0.8); Monocytes % 15.8 % (1.7-12.7); Neutrophils # 3.1 10*3/uL (1.4-7.4); Neutrophils % 62.4 % (38.7-73.9); Platelet Count 215 T/CUMM (130-400); Red Blood Count 3.47 MC/CUMM (3.8-5.5); Red Cell Distribution Width 23.1 % (9.3-17.3)
[2018-06-26 05:34] LABS: Hemoglobin 7.3 GM/DL (12.0-16.0)
[2018-06-26 05:38] LABS: Hypochromasia 2+; Lymphocytes 20 % (20-55); Microcytosis 1+; Platelet Estimate Normal; Segmented Neutrophils 69 % (50-85); Target Cells Few; Total Cells Counted 100
[2018-06-26] MEDS: FUROSEMIDE 40 MG/4 ML VIAL IV SCH ×2 (08:51→16:27)
[2018-06-26] MEDS: NYSTATIN POWDER 15 GM BOTTLE TOP SCH ×2 (08:51→21:22)
[2018-06-26 09:34] LABS: Basophils % 0.2 % (0.0-0.8); Eosinophils % 0.3 % (0.00-10.9); Hematocrit 29.4 VOL% (35.7-47.0); Immature Granulocytes % 0.6 %; Immature Granulocytes Absolute 0.04 #; Lymphocytes # 0.9 10*3/uL (1.4-4.0); Lymphocytes % 13.9 % (21.3-54.2); Mean Corpuscular HGB Conc 27.2 GM/DL (32-36); Mean Corpuscular Hemoglobin 21 PG (27-34); Monocytes # 0.8 10*3/uL (0.11-0.8); Monocytes % 12.3 % (1.7-12.7); NRBC # 0.02 10*3/uL; Neutrophils # 4.6 10*3/uL (1.4-7.4); Neutrophils % 72.7 % (38.7-73.9); Platelet Count 241 T/CUMM (130-400); Red Blood Count 3.77 MC/CUMM (3.8-5.5); Red Cell Distribution Width 23.7 % (9.3-17.3); White Blood Count 6.3 T/CUMM (4-12)
[2018-06-26] MEDS: INSULIN REGULAR 100 UNIT/ML SUBCUT SCH ×2 (09:37→21:21)
[2018-06-26 09:45] LABS: Anisocytosis 2+; Macrocytosis 2+; Microcytosis 2+; Polychromasia 2+
[2018-06-26 09:46] LABS: Hypochromasia 3+; Spherocytes Slight
[2018-06-26 09:47] LABS: Elliptocytes Few; Poikilocytosis 1+
[2018-06-26 09:54] LABS: Folate 9.6 NG/ML (5.4-24.0); Vitamin B12 200 PG/ML (211-911)
[2018-06-26 10:45] LABS: Sedimentation Rate-Westergren 25 MM/HR (0-30)
[2018-06-26] MEDS: THEOPHYLLINE ER (24 HR) 300 MG CAPSULE PO SCH (10:50)
[2018-06-26] MEDS: IRON SUCROSE 200 MG in SODIUM CHLORIDE 0.9% 100 ML IV SCH (10:50)
[2018-06-26 11:43] LABS: INR 1.9; PT Patient Result 20.6 SECS
[2018-06-27] MEDS: ALBUTEROL/IPRATROPIUM 3 ML NEB RESP TX SCH ×4 (00:47→20:19)
[2018-06-27] MEDS: LEVOFLOXACIN INJ 750 MG in PREMIX 1 EACH IV SCH (04:33)
[2018-06-27] MEDS: methylPREDNISolone SOD SUC 40 MG/1 ML VIAL IV SCH ×3 (04:34→20:38)
[2018-06-27 05:09] LABS: Eosinophils % 0.2 % (0.00-10.9); Hematocrit 31.7 VOL% (35.7-47.0); Immature Granulocytes % 0.9 %; Immature Granulocytes Absolute 0.06 #; Lymphocytes # 0.3 10*3/uL (1.4-4.0); Lymphocytes % 4.4 % (21.3-54.2); Mean Corpuscular HGB Conc 28.4 GM/DL (32-36); Mean Corpuscular Hemoglobin 21 PG (27-34); Mean Corpuscular Volume 75.5 FL (87-102); Mean Platelet Volume 10.5 FL (9.6-12.0); Monocytes # 0.2 10*3/uL (0.11-0.8); Monocytes % 2.5 % (1.7-12.7); NRBC # 0.02 10*3/uL; Neutrophils # 5.8 10*3/uL (1.4-7.4); Platelet Count 288 T/CUMM (130-400); Red Cell Distribution Width 24.2 % (9.3-17.3); White Blood Count 6.3 T/CUMM (4-12)
[2018-06-27 05:29] LABS: Acanthocytes Few; Anisocytosis 2+; Elliptocytes Few; Hypochromasia 2+; Lymphocytes 4 % (20-55); Microcytosis 2+; Ovalocytes 2+; Platelet Estimate Normal; Segmented Neutrophils 95 % (50-85); Target Cells 1+; Total Cells Counted 100
[2018-06-27] MEDS: INSULIN REGULAR 100 UNIT/ML SUBCUT SCH ×2 (08:11→20:42)
[2018-06-27] MEDS: IRON SUCROSE 200 MG in SODIUM CHLORIDE 0.9% 100 ML IV SCH (08:11)
[2018-06-27] MEDS: FUROSEMIDE 40 MG/4 ML VIAL IV SCH ×2 (08:12→18:56)
[2018-06-27] MEDS: NYSTATIN POWDER 15 GM BOTTLE TOP SCH ×2 (08:12→20:44)
[2018-06-27] MEDS: THEOPHYLLINE ER (24 HR) 300 MG CAPSULE PO SCH (08:12)
[2018-06-27] MEDS ORDERED: NON-FORMULARY MEDICATION (Umeclidinium Brm/Vilanterol Tr [Anoro Ellipta] 1 PUFF) INH SCH (09:55)
[2018-06-27] MEDS ORDERED: ALBUTEROL 1.25 MG/3 ML NEB RESP TX PRN (09:55)
[2018-06-27 10:07] LABS: Hemoglobin A1 (Alkaline) 97.8 % (96.5-98.5); Hemoglobin A2 (Alkaline) 2.2 % (1.5-3.5)
[2018-06-27] MEDS: busPIRone 10 MG TABLET PO SCH ×3 (10:43→20:37)
[2018-06-27] MEDS: GABAPENTIN 100 MG CAPSULE PO SCH ×3 (10:43→20:37)
[2018-06-27] MEDS ORDERED: ZALEPLON 5 MG CAPSULE PO PRN (19:52)
[2018-06-28] MEDS: ALBUTEROL/IPRATROPIUM 3 ML NEB RESP TX SCH ×2 (01:15→07:05)
[2018-06-28] MEDS: methylPREDNISolone SOD SUC 40 MG/1 ML VIAL IV SCH (03:53)
[2018-06-28] MEDS: LEVOFLOXACIN INJ 750 MG in PREMIX 1 EACH IV SCH (03:53)
[2018-06-28] MEDS: busPIRone 10 MG TABLET PO SCH (08:34)
[2018-06-28] MEDS: THEOPHYLLINE ER (24 HR) 300 MG CAPSULE PO SCH (08:34)
[2018-06-28] MEDS: GABAPENTIN 100 MG CAPSULE PO SCH (08:34)
[2018-06-28] MEDS: FUROSEMIDE 40 MG/4 ML VIAL IV SCH (08:37)
[2018-06-28] MEDS: IRON SUCROSE 200 MG in SODIUM CHLORIDE 0.9% 100 ML IV SCH (08:43)
[2018-06-28] MEDS: NYSTATIN POWDER 15 GM BOTTLE TOP SCH (08:43)
[2018-06-28] MEDS: INSULIN REGULAR 100 UNIT/ML SUBCUT SCH (09:54)
[2018-06-28 12:56] VITALS: BP 139/55
== END 2018-06-28 12:40 | disposition home health service (06) | DRG 189 ==
LOC: N.CC 02:21 → SUATTDRO 02:21 → N.4E 06-27 15:38
PROVIDERS: ADMIT Internal Medicine; ATTEND Internal Medicine

== ENCOUNTER 2018-07-11 21:08 | Inpatient (IN) ==
[2018-07-11] MEDS ORDERED: ALBUTEROL NEB SOLN 5 MG/ML 20 ML/BOTTLE CONT NEB STA (21:47)
[2018-07-11] MEDS ORDERED: NALOXONE 0.4 MG/ML VIAL IV STA (21:48)
[2018-07-11] MEDS ORDERED: LEVOFLOXACIN INJ 750 MG in PREMIX 1 EACH IV STA (21:48)
[2018-07-11] MEDS ORDERED: methylPREDNISolone SOD SUC 125 MG/2 ML VIAL IV STA (21:48)
[2018-07-11 21:50] LABS: INR 2.1
[2018-07-11] MEDS ORDERED: FUROSEMIDE 40 MG/4 ML VIAL IV STA (21:53)
[2018-07-11 21:59] LABS: Basophils % 0.1 % (0.0-0.8); Eosinophils % 0.2 % (0.00-10.9); Hematocrit 30.9 VOL% (35.7-47.0); Immature Granulocytes Absolute 0.09 #; Lymphocytes # 0.3 10*3/uL (1.4-4.0); Lymphocytes % 3.1 % (21.3-54.2); Mean Corpuscular HGB Conc 26.5 GM/DL (32-36); Mean Corpuscular Hemoglobin 23 PG (27-34); Mean Corpuscular Volume 87.3 FL (87-102); Mean Platelet Volume 10.2 FL (9.6-12.0); Monocytes # 0.7 10*3/uL (0.11-0.8); Monocytes % 7.7 % (1.7-12.7); Neutrophils # 8.2 10*3/uL (1.4-7.4); Neutrophils % 87.9 % (38.7-73.9); PT Patient Result 22.9 SECS; Partial Thromboplastin Time 44.6 SECS (0-40); Platelet Count 142 T/CUMM (130-400); Red Blood Count 3.54 MC/CUMM (3.8-5.5); White Blood Count 9.4 T/CUMM (4-12)
[2018-07-11 22:02] LABS: Hemoglobin 8.2 GM/DL (12.0-16.0)
[2018-07-11 22:07] LABS: Band Neutrophils 1 % (0-10); Hypochromasia Slight; Lymphocytes 5 % (20-55); Microcytosis Slight; Platelet Estimate Normal; Segmented Neutrophils 90 % (50-85); Total Cells Counted 100
[2018-07-11 22:12] LABS: Troponin I 0.037 NG/ML (0.00-0.045)
[2018-07-11 22:15] LABS: Albumin 2.7 G/DL (3.4-5.0); Bilirubin,Total 0.4 MG/DL (0.2-1.0); Calcium 8.3 MG/DL (8.5-10.1); Osmolality,Calculated 276.8 MOS/KG (273-304); Potassium 3.8 MMOL/L (3.5-5.1)
[2018-07-11 22:55] LABS: Apearance,Urine Slightly Hazy (Clear); Bilirubin,Urine Negative (Negative); Blood, Urine Small mg/dL (Negative); Glucose,Urine (UA) Negative (Negative); Hyaline Casts,Urine 3 /LPF (0-3); Ketones,Urine Negative (Negative); Mucus,Urine Occasional /LPF (Occasional); Nitrite,Urine Negative (Negative); Protein,Urine Negative; RBC,Urine 1 /HPF (0-4); Squamous Epithelial Cell,Urine Occasional /HPF (0-10); Urine Color Yellow (Yellow); Urine Specific Gravity 1.012 (1.001-1.035); Urine Urobilinogen < 2.0 EU/DL (0.2-1.0); WBC,Urine 4 /HPF (0-6)
[2018-07-11 23:02] LABS: Barbiturates Screen,Urine Negative (Negative); Benzodiazepines Screen,Urine Negative (Negative); Cannabinoid Screen,Urine Negative (Negative); Opiate Screen,Urine Positive (Negative); Phencyclidine Screen,Urine Negative (Negative)
[2018-07-12] MEDS ORDERED: NALOXONE 0.4 MG/ML VIAL IV STA (00:04)
[2018-07-12] MEDS ORDERED: ALBUTEROL 2.5 MG/3 ML NEB RESP TX PRN (00:58)
[2018-07-12 01:00] LABS: ABG Base Excess 16.3 MMOL/L (-2.5-2.5); ABG Oxygen Saturation 84.2 % (95-100); ABG PH 7.358 (7.35-7.45); Allen Test Positive; Pt O2 Delivery Device BIPAP
[2018-07-12 01:02] LABS: ABG PCO2 80.2 MM HG (35-48)
[2018-07-12] MEDS ORDERED: NALOXONE 0.4 MG/ML VIAL IV PRN (01:08)
[2018-07-12] MEDS ORDERED: cefTRIAXone 1,000 MG in SODIUM CHLORIDE 0.9% 100 ML IV SCH (01:30)
[2018-07-12] MEDS: PROPOFOL 1,000 MG/100 ML BOTTLE IV SCH ×8 (02:05→23:18)
[2018-07-12] MEDS: ENOXAPARIN 40 MG/0.4 ML SYRINGE SUBCUT SCH (02:17)
[2018-07-12] MEDS: PANTOPRAZOLE 40 MG VIAL IV SCH (02:20)
[2018-07-12] MEDS ORDERED: AZITHROMYCIN INJ 500 MG in SODIUM CHLORIDE 0.9% 250 ML IV SCH (03:00)
[2018-07-12 03:04] LABS: ABG Base Excess 18.5 MMOL/L (-2.5-2.5); ABG HCO3 42.6 MMOL/L (20-26); ABG PCO2 51.6 MM HG (35-48); ABG PH 7.536 (7.35-7.45); ABG TCO2 40.5 MMOL/L (23-27); Allen Test Positive; Pt O2 Delivery Device Ventilator
[2018-07-12 06:51] LABS: Mean Platelet Volume 9.9 FL (9.6-12.0)
[2018-07-12 06:59] LABS: INR 2.8
[2018-07-12 07:05] LABS: PT Patient Result 30.5 SECS
[2018-07-12 07:12] LABS: Hematocrit 29.6 VOL% (35.7-47.0); Immature Granulocytes % 0.6 %; Immature Granulocytes Absolute 0.03 #; Lymphocytes # 0.2 10*3/uL (1.4-4.0); Lymphocytes % 3.7 % (21.3-54.2); Mean Corpuscular HGB Conc 27.4 GM/DL (32-36); Mean Corpuscular Hemoglobin 24 PG (27-34); Mean Corpuscular Volume 85.8 FL (87-102); Monocytes # 0.2 10*3/uL (0.11-0.8); Monocytes % 2.8 % (1.7-12.7); Neutrophils % 92.9 % (38.7-73.9); Platelet Count 127 T/CUMM (130-400); Red Blood Count 3.45 MC/CUMM (3.8-5.5); Red Cell Distribution Width 26.6 % (9.3-17.3); White Blood Count 5.4 T/CUMM (4-12)
[2018-07-12 07:15] LABS: Hemoglobin 8.1 GM/DL (12.0-16.0)
[2018-07-12 07:19] LABS: Band Neutrophils 1 % (0-10); Hypochromasia 1+; Lymphocytes 2 % (20-55); Platelet Estimate Normal; Segmented Neutrophils 96 % (50-85); Total Cells Counted 100
[2018-07-12 07:19] LABS: Albumin 2.5 G/DL (3.4-5.0); Bilirubin,Total 0.6 MG/DL (0.2-1.0); Calcium 8.3 MG/DL (8.5-10.1); Osmolality,Calculated 276.8 MOS/KG (273-304); Total Protein 6.9 G/DL (6.4-8.3)
[2018-07-12] MEDS ORDERED: VECURONIUM 10 MG VIAL IV ONE (07:19)
[2018-07-12] MEDS ORDERED: ETOMIDATE 20 MG/10 ML VIAL IV ONE (07:19)
[2018-07-12 07:20] LABS: Microcytosis Slight
[2018-07-12] MEDS: ALBUTEROL/IPRATROPIUM 3 ML NEB RESP TX SCH ×3 (07:25→19:04)
[2018-07-12 07:30] LABS: ABG Base Excess 17.5 MMOL/L (-2.5-2.5); ABG HCO3 41.6 MMOL/L (20-26); ABG Oxygen Saturation 99.2 % (95-100); ABG PCO2 42.9 MM HG (35-48); ABG PO2 96.3 MM HG (80-95); ABG TCO2 38.4 MMOL/L (23-27)
[2018-07-12 07:34] LABS: ABG PH 7.594 (7.35-7.45)
[2018-07-12] MEDS ORDERED: PANTOPRAZOLE 40 MG TABLET PO SCH (09:00)
[2018-07-12] MEDS: MEROPENEM 500 MG in SODIUM CHLORIDE 0.9% 100 ML IV SCH ×2 (09:48→17:08)
[2018-07-12] MEDS: POTASSIUM CHLORIDE 20 MEQ/15 ML UDCUP PER TUBE PRN ×4 (09:48→17:08)
[2018-07-12] MEDS: CLINDAMYCIN INJ 300 MG in PREMIX 1 EACH IV SCH ×3 (10:14→23:17)
[2018-07-12] MEDS: MIDAZOLAM 2 MG/2 ML VIAL IV PRN ×2 (11:38→16:04)
[2018-07-12] MEDS ORDERED: GLUCAGON 1 MG VIAL IM PRN (16:35)
[2018-07-12] MEDS ORDERED: DEXTROSE 50% 25 GM/50 ML SYRINGE IV PRN (16:35)
[2018-07-12] MEDS: INSULIN LISPRO 100 UNIT/ML SUBCUT SCH (18:22)
[2018-07-13] MEDS: ALBUTEROL/IPRATROPIUM 3 ML NEB RESP TX SCH ×4 (00:44→19:09)
[2018-07-13] MEDS ORDERED: LEVOFLOXACIN INJ 750 MG in PREMIX 1 EACH IV SCH (01:00)
[2018-07-13] MEDS: INSULIN LISPRO 100 UNIT/ML SUBCUT SCH ×5 (01:33→23:38)
[2018-07-13] MEDS: PROPOFOL 1,000 MG/100 ML BOTTLE IV SCH ×8 (01:44→22:29)
[2018-07-13] MEDS: PANTOPRAZOLE 40 MG VIAL IV SCH (01:45)
[2018-07-13] MEDS: MEROPENEM 500 MG in SODIUM CHLORIDE 0.9% 100 ML IV SCH ×3 (01:45→16:51)
[2018-07-13] MEDS: ENOXAPARIN 40 MG/0.4 ML SYRINGE SUBCUT SCH (01:45)
[2018-07-13 03:08] LABS: ABG Base Excess 13.7 MMOL/L (-2.5-2.5); ABG HCO3 37.6 MMOL/L (20-26); ABG Oxygen Saturation 98.3 % (95-100); ABG PCO2 42.4 MM HG (35-48); ABG PH 7.556 (7.35-7.45); ABG PO2 95.8 MM HG (80-95); ABG TCO2 34.8 MMOL/L (23-27); Allen Test Positive; Pt O2 Delivery Device Ventilator
[2018-07-13 05:12] LABS: Hematocrit 27.6 VOL% (35.7-47.0); Hemoglobin 8.1 GM/DL (12.0-16.0); Immature Granulocytes % 0.3 %; Immature Granulocytes Absolute 0.02 #; Lymphocytes # 0.7 10*3/uL (1.4-4.0); Lymphocytes % 11.6 % (21.3-54.2); Mean Corpuscular HGB Conc 29.3 GM/DL (32-36); Mean Corpuscular Hemoglobin 23 PG (27-34); Mean Corpuscular Volume 79.5 FL (87-102); Monocytes # 0.5 10*3/uL (0.11-0.8); Monocytes % 8.5 % (1.7-12.7); Neutrophils # 4.9 10*3/uL (1.4-7.4); Neutrophils % 79.6 % (38.7-73.9); Platelet Count 177 T/CUMM (130-400); Red Blood Count 3.47 MC/CUMM (3.8-5.5); Red Cell Distribution Width 27.8 % (9.3-17.3); White Blood Count 6.1 T/CUMM (4-12)
[2018-07-13 05:36] LABS: INR 3.1
[2018-07-13 05:42] LABS: PT Patient Result 33.4 SECS; Partial Thromboplastin Time 49.3 SECS (0-40)
[2018-07-13] MEDS: CLINDAMYCIN INJ 300 MG in PREMIX 1 EACH IV SCH ×4 (05:51→22:00)
[2018-07-13 07:52] LABS: Calcium 8.3 MG/DL (8.5-10.1); Osmolality,Calculated 275.8 MOS/KG (273-304); Potassium 2.8 MMOL/L (3.5-5.1)
[2018-07-13] MEDS: POTASSIUM CHLORIDE RIDER 10 MEQ in PREMIX 1 EACH IV PRN ×5 (08:19→15:59)
[2018-07-13 09:28] LABS: % Iron Saturation 9.9 % (18-50); Free T4 (Free Thyroxine) 1.25 NG/DL (0.76-1.46)
[2018-07-13 10:16] LABS: Folate 11.1 NG/ML (5.4-24.0)
[2018-07-13] MEDS ORDERED: MAGNESIUM SULF RIDER 2 GM in PREMIX 1 EACH IV ONE (16:24)
[2018-07-13] MEDS ORDERED: CYANOCOBALAMIN 1000 MCG/1 ML VIAL IM ONE (16:25)
[2018-07-13] MEDS: MULTIVITAMIN LIQUID (CENTRUM) 60 ML BOTTLE PO SCH (17:30)
[2018-07-14] MEDS: ALBUTEROL/IPRATROPIUM 3 ML NEB RESP TX SCH ×4 (00:19→18:55)
[2018-07-14] MEDS: ENOXAPARIN 40 MG/0.4 ML SYRINGE SUBCUT SCH (00:59)
[2018-07-14] MEDS: MEROPENEM 500 MG in SODIUM CHLORIDE 0.9% 100 ML IV SCH ×3 (01:05→17:20)
[2018-07-14] MEDS: PANTOPRAZOLE 40 MG VIAL IV SCH (01:11)
[2018-07-14] MEDS: PROPOFOL 1,000 MG/100 ML BOTTLE IV SCH ×8 (01:48→23:06)
[2018-07-14] MEDS: CLINDAMYCIN INJ 300 MG in PREMIX 1 EACH IV SCH ×4 (03:51→21:45)
[2018-07-14 05:17] LABS: ABG HCO3 33.7 MMOL/L (20-26); ABG Oxygen Saturation 97.8 % (95-100); ABG PH 7.492 (7.35-7.45); ABG PO2 94.7 MM HG (80-95); ABG TCO2 31.8 MMOL/L (23-27)
[2018-07-14 05:18] LABS: Allen Test Positive; Pt O2 Delivery Device Ventilator
[2018-07-14] MEDS: INSULIN LISPRO 100 UNIT/ML SUBCUT SCH ×4 (05:53→23:37)
[2018-07-14 06:01] LABS: Basophils % 0.2 % (0.0-0.8); Eosinophils % 0.8 % (0.00-10.9); Hematocrit 28.1 VOL% (35.7-47.0); Hemoglobin 8.3 GM/DL (12.0-16.0); Immature Granulocytes % 0.2 %; Immature Granulocytes Absolute 0.01 #; Lymphocytes # 0.6 10*3/uL (1.4-4.0); Lymphocytes % 13.1 % (21.3-54.2); Mean Corpuscular HGB Conc 29.5 GM/DL (32-36); Mean Corpuscular Hemoglobin 24 PG (27-34); Mean Corpuscular Volume 79.6 FL (87-102); Mean Platelet Volume 10.5 FL (9.6-12.0); Monocytes # 0.4 10*3/uL (0.11-0.8); Monocytes % 7.8 % (1.7-12.7); Neutrophils # 3.8 10*3/uL (1.4-7.4); Neutrophils % 77.9 % (38.7-73.9); Platelet Count 205 T/CUMM (130-400); Red Blood Count 3.53 MC/CUMM (3.8-5.5); Red Cell Distribution Width 27.6 % (9.3-17.3); White Blood Count 4.9 T/CUMM (4-12)
[2018-07-14 06:06] LABS: Calcium 8.1 MG/DL (8.5-10.1); INR 1.5; Osmolality,Calculated 276.7 MOS/KG (273-304); PT Patient Result 16.2 SECS; Potassium 3.1 MMOL/L (3.5-5.1)
[2018-07-14 06:08] LABS: Prealbumin 12.7 MG/DL (20-40)
[2018-07-14] MEDS: POTASSIUM CHLORIDE RIDER 10 MEQ in PREMIX 1 EACH IV PRN ×4 (06:16→10:44)
[2018-07-14] MEDS: MULTIVITAMIN LIQUID (CENTRUM) 60 ML BOTTLE PO SCH (08:51)
[2018-07-14] MEDS ORDERED: AZITHROMYCIN 250 MG TABLET PO SCH (09:00)
[2018-07-14] MEDS ORDERED: POLYETHYLENE GLYCOL POWDER 17 GM PACK PO PRN (10:13)
[2018-07-14] MEDS: CITALOPRAM 40 MG TABLET PO SCH (10:42)
[2018-07-14] MEDS: THEOPHYLLINE 5.33 MG/ML 30 ML/BOTTLE PO SCH ×2 (13:43→22:01)
[2018-07-14] MEDS: WARFARIN 5 MG TABLET PO SCH (17:19)
[2018-07-14] MEDS: LACTOBACILLUS RHAMNOSUS GG CAPSULE PO SCH (20:39)
[2018-07-14] MEDS: IRON (CARBONYL) 45 MG TABLET PO SCH (20:40)
[2018-07-15] MEDS: ALBUTEROL/IPRATROPIUM 3 ML NEB RESP TX SCH ×4 (00:10→19:06)
[2018-07-15] MEDS: ENOXAPARIN 40 MG/0.4 ML SYRINGE SUBCUT SCH (00:56)
[2018-07-15] MEDS: MEROPENEM 500 MG in SODIUM CHLORIDE 0.9% 100 ML IV SCH ×3 (01:00→17:17)
[2018-07-15] MEDS: PROPOFOL 1,000 MG/100 ML BOTTLE IV SCH ×7 (01:10→21:13)
[2018-07-15] MEDS: PANTOPRAZOLE 40 MG VIAL IV SCH (01:11)
[2018-07-15 04:19] LABS: ABG Base Excess 8.4 MMOL/L (-2.5-2.5); ABG HCO3 32.2 MMOL/L (20-26); ABG Oxygen Saturation 98.9 % (95-100); ABG PCO2 43.3 MM HG (35-48); ABG PH 7.486 (7.35-7.45); Allen Test Positive; Pt O2 Delivery Device Ventilator
[2018-07-15] MEDS: CLINDAMYCIN INJ 300 MG in PREMIX 1 EACH IV SCH ×4 (04:45→22:05)
[2018-07-15] MEDS: THEOPHYLLINE 5.33 MG/ML 30 ML/BOTTLE PO SCH ×3 (05:28→22:10)
[2018-07-15] MEDS: INSULIN LISPRO 100 UNIT/ML SUBCUT SCH ×4 (05:28→23:08)
[2018-07-15 05:53] LABS: Basophils % 0.2 % (0.0-0.8); Eosinophils # 0.1 10*3/uL (0.0-0.87); Eosinophils % 2.6 % (0.00-10.9); Hematocrit 29.5 VOL% (35.7-47.0); Hemoglobin 8.7 GM/DL (12.0-16.0); Immature Granulocytes % 0.2 %; Immature Granulocytes Absolute 0.01 #; Lymphocytes # 0.8 10*3/uL (1.4-4.0); Lymphocytes % 18.1 % (21.3-54.2); Mean Corpuscular HGB Conc 29.5 GM/DL (32-36); Mean Corpuscular Hemoglobin 24 PG (27-34); Mean Corpuscular Volume 80.2 FL (87-102); Mean Platelet Volume 10.1 FL (9.6-12.0); Monocytes # 0.4 10*3/uL (0.11-0.8); Monocytes % 8.1 % (1.7-12.7); Neutrophils # 3.3 10*3/uL (1.4-7.4); Neutrophils % 70.8 % (38.7-73.9); Platelet Count 214 T/CUMM (130-400); Red Blood Count 3.68 MC/CUMM (3.8-5.5); Red Cell Distribution Width 27.3 % (9.3-17.3); White Blood Count 4.6 T/CUMM (4-12)
[2018-07-15 05:58] LABS: INR 1.1; PT Patient Result 11.6 SECS
[2018-07-15 06:25] LABS: Calcium 8.4 MG/DL (8.5-10.1); Osmolality,Calculated 278.4 MOS/KG (273-304); Potassium 3.4 MMOL/L (3.5-5.1)
[2018-07-15] MEDS: POTASSIUM CHLORIDE RIDER 10 MEQ in PREMIX 1 EACH IV PRN ×3 (06:34→09:00)
[2018-07-15 06:42] LABS: Anisocytosis 1+; Platelet Estimate Normal
[2018-07-15 06:43] LABS: Hypochromasia Slight; Macrocytosis Slight; Target Cells 1+
[2018-07-15] MEDS: CITALOPRAM 40 MG TABLET PO SCH (08:03)
[2018-07-15] MEDS: MULTIVITAMIN LIQUID (CENTRUM) 60 ML BOTTLE PO SCH (08:03)
[2018-07-15] MEDS: LACTOBACILLUS RHAMNOSUS GG CAPSULE PO SCH ×2 (08:03→20:30)
[2018-07-15] MEDS: PENTOXIFYLLINE 400 MG TABLET PO SCH (08:03)
[2018-07-15] MEDS: IRON (CARBONYL) 45 MG TABLET PO SCH ×2 (08:03→20:30)
[2018-07-15] MEDS: risperiDONE 0.5 MG TABLET PO SCH (08:03)
[2018-07-15] MEDS: SERTRALINE 25 MG TABLET PO SCH (08:03)
[2018-07-15] MEDS: WARFARIN 5 MG TABLET PO SCH (17:18)
[2018-07-15] MEDS ORDERED: WARFARIN 5 MG TABLET PO SCH (18:00)
[2018-07-16] MEDS: ALBUTEROL/IPRATROPIUM 3 ML NEB RESP TX SCH ×4 (00:08→19:21)
[2018-07-16] MEDS: MEROPENEM 500 MG in SODIUM CHLORIDE 0.9% 100 ML IV SCH ×3 (00:56→17:15)
[2018-07-16] MEDS: ENOXAPARIN 40 MG/0.4 ML SYRINGE SUBCUT SCH (01:00)
[2018-07-16] MEDS: PANTOPRAZOLE 40 MG VIAL IV SCH (01:00)
[2018-07-16] MEDS: PROPOFOL 1,000 MG/100 ML BOTTLE IV SCH ×4 (01:19→22:49)
[2018-07-16] MEDS: CLINDAMYCIN INJ 300 MG in PREMIX 1 EACH IV SCH ×4 (04:11→21:55)
[2018-07-16 05:06] LABS: Allen Test Positive; Pt O2 Delivery Device Other
[2018-07-16 05:07] LABS: ABG Base Excess 7.8 MMOL/L (-2.5-2.5); ABG HCO3 30.8 MMOL/L (20-26); ABG Oxygen Saturation 98.8 % (95-100); ABG PCO2 36.5 MM HG (35-48); ABG PH 7.544 (7.35-7.45); ABG PO2 115.4 MM HG (80-95); ABG TCO2 31.9 MMOL/L (23-27)
[2018-07-16] MEDS: THEOPHYLLINE 5.33 MG/ML 30 ML/BOTTLE PO SCH ×3 (05:36→21:55)
[2018-07-16] MEDS: INSULIN LISPRO 100 UNIT/ML SUBCUT SCH ×4 (05:36→23:55)
[2018-07-16 05:44] LABS: Basophils % 0.2 % (0.0-0.8); Eosinophils # 0.2 10*3/uL (0.0-0.87); Eosinophils % 4.3 % (0.00-10.9); Hematocrit 28.3 VOL% (35.7-47.0); Hemoglobin 8.1 GM/DL (12.0-16.0); Immature Granulocytes % 0.5 %; Immature Granulocytes Absolute 0.02 #; Lymphocytes # 0.9 10*3/uL (1.4-4.0); Mean Corpuscular HGB Conc 28.6 GM/DL (32-36); Mean Corpuscular Hemoglobin 23 PG (27-34); Mean Corpuscular Volume 81.1 FL (87-102); Mean Platelet Volume 9.7 FL (9.6-12.0); Monocytes # 0.3 10*3/uL (0.11-0.8); Monocytes % 7.9 % (1.7-12.7); Neutrophils # 2.8 10*3/uL (1.4-7.4); Neutrophils % 66.1 % (38.7-73.9); Platelet Count 211 T/CUMM (130-400); Red Blood Count 3.49 MC/CUMM (3.8-5.5); Red Cell Distribution Width 26.7 % (9.3-17.3); White Blood Count 4.2 T/CUMM (4-12)
[2018-07-16 05:51] LABS: PT Patient Result 10.9 SECS
[2018-07-16 06:04] LABS: Hypochromasia 1+; Macrocytosis Slight; Platelet Estimate Adequate
[2018-07-16 06:06] LABS: Calcium 8.1 MG/DL (8.5-10.1); Osmolality,Calculated 278.5 MOS/KG (273-304); Potassium 3.7 MMOL/L (3.5-5.1)
[2018-07-16 06:10] LABS: Prealbumin 16.5 MG/DL (20-40)
[2018-07-16] MEDS: POTASSIUM CHLORIDE RIDER 10 MEQ in PREMIX 1 EACH IV PRN (06:36)
[2018-07-16] MEDS: LACTOBACILLUS RHAMNOSUS GG CAPSULE PO SCH ×2 (08:42→20:44)
[2018-07-16] MEDS: CITALOPRAM 40 MG TABLET PO SCH (08:42)
[2018-07-16] MEDS: MULTIVITAMIN LIQUID (CENTRUM) 60 ML BOTTLE PO SCH (08:43)
[2018-07-16] MEDS: PENTOXIFYLLINE 400 MG TABLET PO SCH (08:43)
[2018-07-16] MEDS: SERTRALINE 25 MG TABLET PO SCH (08:43)
[2018-07-16] MEDS: IRON (CARBONYL) 45 MG TABLET PO SCH ×2 (08:43→20:44)
[2018-07-16] MEDS: risperiDONE 0.5 MG TABLET PO SCH (08:43)
[2018-07-16] MEDS: LEVOFLOXACIN 500 MG TABLET PER TUBE SCH (08:43)
[2018-07-16] MEDS: WARFARIN 5 MG TABLET PO SCH (17:23)
[2018-07-17] MEDS: ALBUTEROL/IPRATROPIUM 3 ML NEB RESP TX SCH ×4 (00:14→20:07)
[2018-07-17] MEDS: MEROPENEM 500 MG in SODIUM CHLORIDE 0.9% 100 ML IV SCH ×3 (01:25→16:52)
[2018-07-17] MEDS: ENOXAPARIN 40 MG/0.4 ML SYRINGE SUBCUT SCH (01:25)
[2018-07-17] MEDS: PANTOPRAZOLE 40 MG VIAL IV SCH (01:25)
[2018-07-17] MEDS: PROPOFOL 1,000 MG/100 ML BOTTLE IV SCH ×5 (01:45→21:04)
[2018-07-17] MEDS: CLINDAMYCIN INJ 300 MG in PREMIX 1 EACH IV SCH ×4 (03:43→22:25)
[2018-07-17 04:02] LABS: ABG HCO3 32.8 MMOL/L (20-26); ABG Oxygen Saturation 95.5 % (95-100); ABG PCO2 41.8 MM HG (35-48); ABG PH 7.512 (7.35-7.45); ABG PO2 78.8 MM HG (80-95); Allen Test Positive; Pt O2 Delivery Device Ventilator
[2018-07-17] MEDS: INSULIN LISPRO 100 UNIT/ML SUBCUT SCH ×3 (05:35→18:56)
[2018-07-17 05:50] LABS: Calcium 8.2 MG/DL (8.5-10.1); Osmolality,Calculated 281.4 MOS/KG (273-304); Potassium 3.6 MMOL/L (3.5-5.1)
[2018-07-17] MEDS: POTASSIUM CHLORIDE 20 MEQ/15 ML UDCUP PER TUBE PRN (06:13)
[2018-07-17] MEDS: THEOPHYLLINE 5.33 MG/ML 30 ML/BOTTLE PO SCH ×3 (06:13→22:25)
[2018-07-17 06:33] LABS: Basophils % 0.2 % (0.0-0.8); Eosinophils # 0.3 10*3/uL (0.0-0.87); Eosinophils % 3.9 % (0.00-10.9); Hematocrit 29.6 VOL% (35.7-47.0); Immature Granulocytes % 0.5 %; Immature Granulocytes Absolute 0.03 #; Lymphocytes # 0.7 10*3/uL (1.4-4.0); Lymphocytes % 11.5 % (21.3-54.2); Mean Corpuscular HGB Conc 28.7 GM/DL (32-36); Mean Corpuscular Hemoglobin 24 PG (27-34); Mean Corpuscular Volume 82.2 FL (87-102); Mean Platelet Volume 10.1 FL (9.6-12.0); Monocytes # 0.5 10*3/uL (0.11-0.8); Monocytes % 7.2 % (1.7-12.7); Neutrophils # 4.9 10*3/uL (1.4-7.4); Neutrophils % 76.7 % (38.7-73.9); Platelet Count 240 T/CUMM (130-400); White Blood Count 6.4 T/CUMM (4-12)
[2018-07-17 06:35] LABS: Hemoglobin 8.5 GM/DL (12.0-16.0)
[2018-07-17 06:37] LABS: Hypochromasia 2+; Platelet Estimate Adequate
[2018-07-17 06:38] LABS: Macrocytosis Slight
[2018-07-17] MEDS: SERTRALINE 25 MG TABLET PO SCH (09:29)
[2018-07-17] MEDS: IRON (CARBONYL) 45 MG TABLET PO SCH ×2 (09:29→21:04)
[2018-07-17] MEDS: PENTOXIFYLLINE 400 MG TABLET PO SCH (09:30)
[2018-07-17] MEDS: risperiDONE 0.5 MG TABLET PO SCH (09:30)
[2018-07-17] MEDS: LEVOFLOXACIN 500 MG TABLET PER TUBE SCH (09:30)
[2018-07-17] MEDS: CITALOPRAM 40 MG TABLET PO SCH (09:30)
[2018-07-17] MEDS: LACTOBACILLUS RHAMNOSUS GG CAPSULE PO SCH ×2 (09:32→21:04)
[2018-07-17] MEDS: MULTIVITAMIN LIQUID (CENTRUM) 60 ML BOTTLE PO SCH (09:32)
[2018-07-17] MEDS: methylPREDNISolone SOD SUC 40 MG/1 ML VIAL IV SCH ×3 (09:32→23:27)
[2018-07-17] MEDS: WARFARIN 5 MG TABLET PO SCH (18:57)
[2018-07-18] MEDS: INSULIN LISPRO 100 UNIT/ML SUBCUT SCH ×4 (00:05→18:01)
[2018-07-18] MEDS: ALBUTEROL/IPRATROPIUM 3 ML NEB RESP TX SCH ×4 (00:41→19:00)
[2018-07-18] MEDS: PROPOFOL 1,000 MG/100 ML BOTTLE IV SCH (01:39)
[2018-07-18] MEDS: PANTOPRAZOLE 40 MG VIAL IV SCH (01:45)
[2018-07-18] MEDS: ENOXAPARIN 40 MG/0.4 ML SYRINGE SUBCUT SCH (01:46)
[2018-07-18] MEDS: MEROPENEM 500 MG in SODIUM CHLORIDE 0.9% 100 ML IV SCH (01:46)
[2018-07-18 03:58] LABS: ABG Base Excess 6.2 MMOL/L (-2.5-2.5); ABG HCO3 30.1 MMOL/L (20-26); ABG PCO2 44.9 MM HG (35-48); ABG PH 7.447 (7.35-7.45); ABG PO2 87.5 MM HG (80-95); ABG TCO2 28.6 MMOL/L (23-27); Allen Test Positive; Pt O2 Delivery Device Ventilator
[2018-07-18] MEDS: CLINDAMYCIN INJ 300 MG in PREMIX 1 EACH IV SCH (04:42)
[2018-07-18 05:29] LABS: Basophils % 0.2 % (0.0-0.8); Hematocrit 27.9 VOL% (35.7-47.0); Hemoglobin 8.1 GM/DL (12.0-16.0); Immature Granulocytes % 0.8 %; Immature Granulocytes Absolute 0.04 #; Lymphocytes # 0.4 10*3/uL (1.4-4.0); Lymphocytes % 8.5 % (21.3-54.2); Mean Corpuscular Hemoglobin 24 PG (27-34); Mean Corpuscular Volume 82.1 FL (87-102); Monocytes # 0.2 10*3/uL (0.11-0.8); Monocytes % 4.7 % (1.7-12.7); Neutrophils # 4.4 10*3/uL (1.4-7.4); Neutrophils % 85.8 % (38.7-73.9); Platelet Count 274 T/CUMM (130-400); Red Cell Distribution Width 26.1 % (9.3-17.3); White Blood Count 5.2 T/CUMM (4-12)
[2018-07-18 05:38] LABS: PT Patient Result 10.6 SECS
[2018-07-18 05:40] LABS: Calcium 8.5 MG/DL (8.5-10.1); Osmolality,Calculated 277.7 MOS/KG (273-304); Potassium 3.8 MMOL/L (3.5-5.1)
[2018-07-18 05:50] LABS: Hypochromasia 2+; Macrocytosis Slight; Platelet Estimate Adequate
[2018-07-18] MEDS: POTASSIUM CHLORIDE RIDER 10 MEQ in PREMIX 1 EACH IV PRN ×2 (06:13→08:12)
[2018-07-18] MEDS: THEOPHYLLINE 5.33 MG/ML 30 ML/BOTTLE PO SCH ×3 (06:13→21:12)
[2018-07-18] MEDS: methylPREDNISolone SOD SUC 40 MG/1 ML VIAL IV SCH ×3 (06:13→23:11)
[2018-07-18] MEDS: SERTRALINE 25 MG TABLET PO SCH (08:11)
[2018-07-18] MEDS: MULTIVITAMIN LIQUID (CENTRUM) 60 ML BOTTLE PO SCH (08:11)
[2018-07-18] MEDS: IRON (CARBONYL) 45 MG TABLET PO SCH ×2 (08:11→21:10)
[2018-07-18] MEDS: risperiDONE 0.5 MG TABLET PO SCH (08:11)
[2018-07-18] MEDS: PENTOXIFYLLINE 400 MG TABLET PO SCH (08:11)
[2018-07-18] MEDS: CITALOPRAM 40 MG TABLET PO SCH ×2 (08:11→08:12)
[2018-07-18] MEDS: LACTOBACILLUS RHAMNOSUS GG CAPSULE PO SCH ×2 (08:11→21:10)
[2018-07-18] MEDS: LEVOFLOXACIN 500 MG TABLET PER TUBE SCH (08:11)
[2018-07-18] MEDS: CEFEPIME 1,000 MG in SYRINGE 1 EACH IV SCH ×2 (08:13→18:02)
[2018-07-18] MEDS: WARFARIN 5 MG TABLET PO SCH (17:07)
[2018-07-19] MEDS: ALBUTEROL/IPRATROPIUM 3 ML NEB RESP TX SCH ×4 (00:14→19:21)
[2018-07-19] MEDS: INSULIN LISPRO 100 UNIT/ML SUBCUT SCH ×4 (00:15→18:24)
[2018-07-19] MEDS: ENOXAPARIN 40 MG/0.4 ML SYRINGE SUBCUT SCH (00:50)
[2018-07-19] MEDS: PANTOPRAZOLE 40 MG VIAL IV SCH (00:55)
[2018-07-19 05:00] LABS: ABG Base Excess 8.1 MMOL/L (-2.5-2.5); ABG HCO3 31.7 MMOL/L (20-26); ABG Oxygen Saturation 91.6 % (95-100); ABG PCO2 57.8 MM HG (35-48); ABG PH 7.386 (7.35-7.45); ABG PO2 67.4 MM HG (80-95); ABG TCO2 31.9 MMOL/L (23-27)
[2018-07-19 05:38] LABS: INR 0.9; PT Patient Result 10.3 SECS
[2018-07-19 05:58] LABS: Calcium 8.5 MG/DL (8.5-10.1); Osmolality,Calculated 285.1 MOS/KG (273-304); Potassium 3.9 MMOL/L (3.5-5.1)
[2018-07-19 06:02] LABS: Prealbumin 16.9 MG/DL (20-40)
[2018-07-19] MEDS: THEOPHYLLINE 5.33 MG/ML 30 ML/BOTTLE PO SCH (06:34)
[2018-07-19] MEDS: CEFEPIME 1,000 MG in SYRINGE 1 EACH IV SCH ×2 (06:34→18:15)
[2018-07-19 06:37] LABS: Immature Granulocytes % 0.5 %; Immature Granulocytes Absolute 0.02 #; Lymphocytes # 0.6 10*3/uL (1.4-4.0); Lymphocytes % 13.9 % (21.3-54.2); Mean Corpuscular HGB Conc 28.4 GM/DL (32-36); Mean Corpuscular Hemoglobin 24 PG (27-34); Mean Corpuscular Volume 83.7 FL (87-102); Mean Platelet Volume 9.8 FL (9.6-12.0); Monocytes # 0.2 10*3/uL (0.11-0.8); Neutrophils # 3.6 10*3/uL (1.4-7.4); Neutrophils % 80.6 % (38.7-73.9); Platelet Count 347 T/CUMM (130-400); Red Blood Count 3.74 MC/CUMM (3.8-5.5); Red Cell Distribution Width 25.9 % (9.3-17.3); White Blood Count 4.4 T/CUMM (4-12)
[2018-07-19 06:39] LABS: Hematocrit 31.2 VOL% (35.7-47.0)
[2018-07-19 06:40] LABS: Hemoglobin 8.9 GM/DL (12.0-16.0)
[2018-07-19 06:41] LABS: Hypochromasia 1+; Macrocytosis Slight; Ovalocytes Slight; Platelet Estimate Adequate
[2018-07-19] MEDS: methylPREDNISolone SOD SUC 40 MG/1 ML VIAL IV SCH ×2 (06:42→14:17)
[2018-07-19] MEDS: SERTRALINE 25 MG TABLET PO SCH (08:33)
[2018-07-19] MEDS: LEVOFLOXACIN 500 MG TABLET PER TUBE SCH (08:33)
[2018-07-19] MEDS: PENTOXIFYLLINE 400 MG TABLET PO SCH (08:33)
[2018-07-19] MEDS: THEOPHYLLINE ER (24 HR) 400 MG CAPSULE PO SCH ×2 (08:33→08:34)
[2018-07-19] MEDS: risperiDONE 0.5 MG TABLET PO SCH (08:34)
[2018-07-19] MEDS: LACTOBACILLUS RHAMNOSUS GG CAPSULE PO SCH ×2 (08:34→20:57)
[2018-07-19] MEDS: CITALOPRAM 40 MG TABLET PO SCH (08:34)
[2018-07-19] MEDS: MULTIVITAMIN LIQUID (CENTRUM) 60 ML BOTTLE PO SCH (08:38)
[2018-07-19] MEDS ORDERED: PANTOPRAZOLE 40 MG TABLET PO SCH (09:00)
[2018-07-19] MEDS: IRON (CARBONYL) 45 MG TABLET PO SCH ×2 (09:24→20:57)
[2018-07-19] MEDS: POTASSIUM CHLORIDE RIDER 10 MEQ in PREMIX 1 EACH IV PRN ×2 (10:24→11:18)
[2018-07-19] MEDS: WARFARIN 5 MG TABLET PO SCH (18:18)
[2018-07-19] MEDS ORDERED: MELATONIN 3 MG TABLET PO ONE (22:10)
[2018-07-19] MEDS ORDERED: METOPROLOL TARTRATE 5 MG/5 ML VIAL IV ONE (23:20)
[2018-07-20] MEDS: ALBUTEROL/IPRATROPIUM 3 ML NEB RESP TX SCH ×4 (00:20→19:43)
[2018-07-20] MEDS: methylPREDNISolone SOD SUC 40 MG/1 ML VIAL IV SCH ×3 (00:47→17:18)
[2018-07-20] MEDS: ENOXAPARIN 40 MG/0.4 ML SYRINGE SUBCUT SCH (00:48)
[2018-07-20] MEDS: INSULIN LISPRO 100 UNIT/ML SUBCUT SCH ×4 (00:48→17:33)
[2018-07-20 04:55] LABS: PT Patient Result 11.3 SECS
[2018-07-20 05:00] LABS: Calcium 8.4 MG/DL (8.5-10.1); Osmolality,Calculated 285.4 MOS/KG (273-304); Potassium 3.9 MMOL/L (3.5-5.1)
[2018-07-20 05:12] LABS: Basophils % 0.2 % (0.0-0.8); Eosinophils % 0.2 % (0.00-10.9); Hematocrit 32.8 VOL% (35.7-47.0); Immature Granulocytes % 0.9 %; Immature Granulocytes Absolute 0.04 #; Lymphocytes # 0.6 10*3/uL (1.4-4.0); Lymphocytes % 13.4 % (21.3-54.2); Mean Corpuscular HGB Conc 28.7 GM/DL (32-36); Mean Corpuscular Hemoglobin 24 PG (27-34); Mean Platelet Volume 9.8 FL (9.6-12.0); Monocytes # 0.2 10*3/uL (0.11-0.8); Monocytes % 4.9 % (1.7-12.7); Neutrophils # 3.6 10*3/uL (1.4-7.4); Neutrophils % 80.4 % (38.7-73.9); Platelet Count 353 T/CUMM (130-400); Red Blood Count 3.95 MC/CUMM (3.8-5.5); Red Cell Distribution Width 26.2 % (9.3-17.3); White Blood Count 4.5 T/CUMM (4-12)
[2018-07-20 05:13] LABS: Hemoglobin 9.4 GM/DL (12.0-16.0)
[2018-07-20 05:59] LABS: Platelet Estimate Normal
[2018-07-20 06:00] LABS: Hypochromasia 2+; Microcytosis 1+; Target Cells Few
[2018-07-20] MEDS: CEFEPIME 1,000 MG in SYRINGE 1 EACH IV SCH ×2 (06:25→21:46)
[2018-07-20] MEDS: IRON (CARBONYL) 45 MG TABLET PO SCH ×2 (08:37→21:46)
[2018-07-20] MEDS: THEOPHYLLINE ER (24 HR) 400 MG CAPSULE PO SCH (08:37)
[2018-07-20] MEDS: LEVOFLOXACIN 500 MG TABLET PER TUBE SCH (08:38)
[2018-07-20] MEDS: risperiDONE 0.5 MG TABLET PO SCH (08:38)
[2018-07-20] MEDS: PENTOXIFYLLINE 400 MG TABLET PO SCH (08:38)
[2018-07-20] MEDS: LACTOBACILLUS RHAMNOSUS GG CAPSULE PO SCH ×2 (08:38→21:46)
[2018-07-20] MEDS: SERTRALINE 25 MG TABLET PO SCH (08:38)
[2018-07-20] MEDS: CITALOPRAM 40 MG TABLET PO SCH (08:38)
[2018-07-20] MEDS ORDERED: METOPROLOL TARTRATE 5 MG/5 ML VIAL IV ONE (10:30)
[2018-07-20] MEDS: METOPROLOL TARTRATE 25 MG TABLET PO SCH ×2 (11:02→21:46)
[2018-07-20] MEDS: WARFARIN 5 MG TABLET PO SCH (17:17)
[2018-07-21] MEDS: ALBUTEROL/IPRATROPIUM 3 ML NEB RESP TX SCH ×4 (00:44→19:50)
[2018-07-21] MEDS: INSULIN LISPRO 100 UNIT/ML SUBCUT SCH ×4 (01:18→17:39)
[2018-07-21] MEDS: methylPREDNISolone SOD SUC 40 MG/1 ML VIAL IV SCH ×3 (01:40→17:28)
[2018-07-21] MEDS: ENOXAPARIN 40 MG/0.4 ML SYRINGE SUBCUT SCH (01:42)
[2018-07-21 04:48] LABS: INR 1.1; PT Patient Result 11.4 SECS
[2018-07-21] MEDS: SERTRALINE 25 MG TABLET PO SCH (09:03)
[2018-07-21] MEDS: LACTOBACILLUS RHAMNOSUS GG CAPSULE PO SCH ×2 (09:03→22:12)
[2018-07-21] MEDS: THEOPHYLLINE ER (24 HR) 400 MG CAPSULE PO SCH (09:03)
[2018-07-21] MEDS: risperiDONE 0.5 MG TABLET PO SCH (09:03)
[2018-07-21] MEDS: IRON (CARBONYL) 45 MG TABLET PO SCH ×2 (09:03→22:12)
[2018-07-21] MEDS: METOPROLOL TARTRATE 25 MG TABLET PO SCH ×2 (09:03→22:13)
[2018-07-21] MEDS: CEFEPIME 1,000 MG in SYRINGE 1 EACH IV SCH ×2 (09:04→22:13)
[2018-07-21] MEDS: PENTOXIFYLLINE 400 MG TABLET PO SCH (09:04)
[2018-07-21] MEDS: LANSOPRAZOLE ODT 30 MG TABLET PER TUBE SCH (09:04)
[2018-07-21] MEDS: CITALOPRAM 40 MG TABLET PO SCH (09:04)
[2018-07-21] MEDS ORDERED: DILTIAZEM 50 MG/10 ML VIAL IV ONE (13:20)
[2018-07-21] MEDS ORDERED: WARFARIN 7.5 MG TABLET PO SCH (13:23)
[2018-07-21] MEDS ORDERED: dilTIAZem Drip 125 MG/125 ML PREMIX IV SCH (14:00)
[2018-07-21 14:11] LABS: Calcium 8.6 MG/DL (8.5-10.1); Osmolality,Calculated 286.5 MOS/KG (273-304); Potassium 3.8 MMOL/L (3.5-5.1)
[2018-07-21] MEDS: ENOXAPARIN 120 MG/0.8 ML SYRINGE SUBCUT SCH (14:19)
[2018-07-21] MEDS: POTASSIUM CHLORIDE 20 MEQ TABLET PO SCH ×2 (14:36→22:12)
[2018-07-21] MEDS ORDERED: MAGNESIUM SULF INJ 3 GM in SODIUM CHLORIDE 0.9% 100 ML IV ONE (15:00)
[2018-07-21] MEDS ORDERED: AMIODARONE INJ 150 MG in DEXTROSE 5% 100 ML IV ONE (15:46)
[2018-07-21] MEDS ORDERED: AMIODARONE INJ 450 MG in DEXTROSE 5% 241 ML IV SCH (16:00)
[2018-07-21] MEDS ORDERED: DIGOXIN 0.5 MG/2 ML AMP IV ONE (17:34)
[2018-07-21] MEDS: AMIODARONE INJ 450 MG in DEXTROSE 5% 241 ML IV SCH (22:13)
[2018-07-22] MEDS: ALBUTEROL/IPRATROPIUM 3 ML NEB RESP TX SCH ×4 (01:00→19:54)
[2018-07-22] MEDS: AMIODARONE INJ 450 MG in DEXTROSE 5% 241 ML IV SCH ×2 (01:00→18:16)
[2018-07-22] MEDS: methylPREDNISolone SOD SUC 40 MG/1 ML VIAL IV SCH ×3 (01:00→16:55)
[2018-07-22] MEDS: ENOXAPARIN 120 MG/0.8 ML SYRINGE SUBCUT SCH ×2 (01:00→15:17)
[2018-07-22] MEDS: INSULIN LISPRO 100 UNIT/ML SUBCUT SCH ×4 (04:44→18:14)
[2018-07-22 06:12] LABS: INR 1.7
[2018-07-22 06:14] LABS: Calcium 8.3 MG/DL (8.5-10.1); Osmolality,Calculated 283.5 MOS/KG (273-304); Potassium 4.7 MMOL/L (3.5-5.1)
[2018-07-22 06:25] LABS: Basophils % 0.2 % (0.0-0.8); Hematocrit 34.7 VOL% (35.7-47.0); Hemoglobin 10.1 GM/DL (12.0-16.0); Immature Granulocytes % 1.4 %; Immature Granulocytes Absolute 0.08 #; Lymphocytes # 0.7 10*3/uL (1.4-4.0); Lymphocytes % 11.7 % (21.3-54.2); Mean Corpuscular HGB Conc 29.1 GM/DL (32-36); Mean Corpuscular Hemoglobin 24 PG (27-34); Mean Corpuscular Volume 82.4 FL (87-102); Mean Platelet Volume 9.9 FL (9.6-12.0); Monocytes # 0.2 10*3/uL (0.11-0.8); Monocytes % 3.4 % (1.7-12.7); Neutrophils # 4.7 10*3/uL (1.4-7.4); Neutrophils % 83.3 % (38.7-73.9); Platelet Count 444 T/CUMM (130-400); Red Blood Count 4.21 MC/CUMM (3.8-5.5); Red Cell Distribution Width 26.4 % (9.3-17.3); White Blood Count 5.7 T/CUMM (4-12)
[2018-07-22] MEDS: LANSOPRAZOLE ODT 30 MG TABLET PER TUBE SCH (06:56)
[2018-07-22] MEDS ORDERED: MAGNESIUM SULF RIDER 2 GM in PREMIX 1 EACH IV PRN (07:42)
[2018-07-22] MEDS: THEOPHYLLINE ER (24 HR) 400 MG CAPSULE PO SCH (08:55)
[2018-07-22] MEDS: DILTIAZEM 60 MG TABLET PO SCH ×3 (08:55→16:53)
[2018-07-22] MEDS: PENTOXIFYLLINE 400 MG TABLET PO SCH (08:56)
[2018-07-22] MEDS: AMIODARONE 200 MG TABLET PO SCH (08:57)
[2018-07-22] MEDS: LACTOBACILLUS RHAMNOSUS GG CAPSULE PO SCH ×2 (08:57→21:14)
[2018-07-22] MEDS: METOPROLOL TARTRATE 25 MG TABLET PO SCH ×2 (08:57→21:14)
[2018-07-22] MEDS: IRON (CARBONYL) 45 MG TABLET PO SCH ×2 (08:58→21:15)
[2018-07-22] MEDS: POTASSIUM CHLORIDE 20 MEQ TABLET PO SCH ×2 (08:58→21:14)
[2018-07-22] MEDS: SERTRALINE 25 MG TABLET PO SCH (08:58)
[2018-07-22] MEDS: risperiDONE 0.5 MG TABLET PO SCH (08:58)
[2018-07-22] MEDS: CITALOPRAM 40 MG TABLET PO SCH (08:58)
[2018-07-22] MEDS: CEFEPIME 1,000 MG in SYRINGE 1 EACH IV SCH ×2 (12:12→21:17)
[2018-07-22] MEDS: DIGOXIN 0.25 MG TABLET PO SCH (12:21)
[2018-07-22] MEDS: WARFARIN 5 MG TABLET PO SCH (17:00)
[2018-07-22] MEDS ORDERED: dilTIAZem Drip 125 MG/125 ML PREMIX IV SCH (19:00)
[2018-07-22] MEDS: ZALEPLON 5 MG CAPSULE PO PRN (21:15)
[2018-07-23] MEDS: ALBUTEROL/IPRATROPIUM 3 ML NEB RESP TX SCH ×4 (01:14→19:24)
[2018-07-23] MEDS: ENOXAPARIN 120 MG/0.8 ML SYRINGE SUBCUT SCH ×2 (02:00→13:45)
[2018-07-23] MEDS: methylPREDNISolone SOD SUC 40 MG/1 ML VIAL IV SCH ×3 (02:00→18:44)
[2018-07-23] MEDS: INSULIN LISPRO 100 UNIT/ML SUBCUT SCH ×4 (02:00→18:44)
[2018-07-23 06:16] LABS: Calcium 8.4 MG/DL (8.5-10.1); Osmolality,Calculated 281.7 MOS/KG (273-304); Potassium 4.7 MMOL/L (3.5-5.1)
[2018-07-23] MEDS: LANSOPRAZOLE ODT 30 MG TABLET PER TUBE SCH (07:30)
[2018-07-23 07:37] LABS: PT Patient Result 54.2 SECS
[2018-07-23 07:38] LABS: INR 5.1
[2018-07-23] MEDS: SERTRALINE 25 MG TABLET PO SCH (09:36)
[2018-07-23] MEDS: IRON (CARBONYL) 45 MG TABLET PO SCH ×2 (09:54→22:37)
[2018-07-23] MEDS: LACTOBACILLUS RHAMNOSUS GG CAPSULE PO SCH ×2 (09:54→22:38)
[2018-07-23] MEDS: THEOPHYLLINE ER (24 HR) 400 MG CAPSULE PO SCH (09:54)
[2018-07-23] MEDS: CITALOPRAM 40 MG TABLET PO SCH (09:54)
[2018-07-23] MEDS: AMIODARONE 200 MG TABLET PO SCH (09:54)
[2018-07-23] MEDS: METOPROLOL TARTRATE 25 MG TABLET PO SCH ×2 (09:54→22:39)
[2018-07-23] MEDS: POTASSIUM CHLORIDE 20 MEQ TABLET PO SCH ×2 (09:54→22:39)
[2018-07-23] MEDS: CEFEPIME 1,000 MG in SYRINGE 1 EACH IV SCH ×2 (09:55→22:41)
[2018-07-23] MEDS: PENTOXIFYLLINE 400 MG TABLET PO SCH (09:55)
[2018-07-23] MEDS: risperiDONE 0.5 MG TABLET PO SCH (09:55)
[2018-07-23] MEDS: DILTIAZEM 60 MG TABLET PO SCH ×3 (12:28→22:38)
[2018-07-23] MEDS ORDERED: DILTIAZEM 60 MG TABLET PO SCH (13:00)
[2018-07-23] MEDS: DIGOXIN 0.25 MG TABLET PO SCH (13:44)
[2018-07-23] MEDS ORDERED: DIGOXIN 0.5 MG/2 ML AMP IV ONE (15:51)
[2018-07-23] MEDS: WARFARIN 5 MG TABLET PO SCH (17:02)
[2018-07-23] MEDS: ZALEPLON 5 MG CAPSULE PO PRN (22:37)
[2018-07-24] MEDS: ALBUTEROL/IPRATROPIUM 3 ML NEB RESP TX SCH ×2 (00:14→07:42)
[2018-07-24] MEDS: methylPREDNISolone SOD SUC 40 MG/1 ML VIAL IV SCH ×4 (02:52→21:14)
[2018-07-24 04:56] LABS: Calcium 8.4 MG/DL (8.5-10.1); Osmolality,Calculated 287.4 MOS/KG (273-304); Potassium 4.4 MMOL/L (3.5-5.1)
[2018-07-24 04:57] LABS: INR 4.2
[2018-07-24 04:59] LABS: PT Patient Result 45.1 SECS
[2018-07-24 05:43] LABS: Basophils % 0.2 % (0.0-0.8); Hematocrit 33.8 VOL% (35.7-47.0); Immature Granulocytes % 1.2 %; Immature Granulocytes Absolute 0.08 #; Lymphocytes # 0.5 10*3/uL (1.4-4.0); Lymphocytes % 7.5 % (21.3-54.2); Mean Corpuscular HGB Conc 29.6 GM/DL (32-36); Mean Corpuscular Hemoglobin 24 PG (27-34); Mean Corpuscular Volume 81.8 FL (87-102); Mean Platelet Volume 10.1 FL (9.6-12.0); Monocytes # 0.3 10*3/uL (0.11-0.8); Neutrophils # 5.7 10*3/uL (1.4-7.4); Neutrophils % 87.1 % (38.7-73.9); Platelet Count 477 T/CUMM (130-400); Red Blood Count 4.13 MC/CUMM (3.8-5.5); Red Cell Distribution Width 26.5 % (9.3-17.3); White Blood Count 6.6 T/CUMM (4-12)
[2018-07-24 05:53] LABS: Hypochromasia 1+; Platelet Estimate Adequate
[2018-07-24] MEDS: INSULIN LISPRO 100 UNIT/ML SUBCUT SCH ×4 (06:00→18:00)
[2018-07-24] MEDS: SODIUM CHLORIDE 0.9% 1,000 ML IV SCH (06:20)
[2018-07-24] MEDS ORDERED: ETOMIDATE 40 MG/20 ML VIAL IV ONE (07:25)
[2018-07-24] MEDS ORDERED: PROPOFOL 200 MG/20 ML VIAL IV ONE (07:25)
[2018-07-24] MEDS: CITALOPRAM 40 MG TABLET PO SCH (08:18)
[2018-07-24] MEDS ORDERED: dilTIAZem Drip 125 MG/125 ML PREMIX IV ONE (08:50)
[2018-07-24] MEDS: DILTIAZEM 60 MG TABLET PO SCH (08:58)
[2018-07-24] MEDS ORDERED: FUROSEMIDE 40 MG/4 ML VIAL IV ONE (09:18)
[2018-07-24] MEDS: LANSOPRAZOLE ODT 30 MG TABLET PER TUBE SCH (09:28)
[2018-07-24] MEDS ORDERED: DILTIAZEM 50 MG/10 ML VIAL IV ONE (09:58)
[2018-07-24] MEDS ORDERED: DILTIAZEM 25 MG/5 ML VIAL IV ONE (10:02)
[2018-07-24] MEDS: dilTIAZem Drip 125 MG/125 ML PREMIX IV SCH (10:17)
[2018-07-24] MEDS: THEOPHYLLINE ER (24 HR) 400 MG CAPSULE PO SCH (10:17)
[2018-07-24] MEDS: AMIODARONE 200 MG TABLET PO SCH (10:18)
[2018-07-24] MEDS: LACTOBACILLUS RHAMNOSUS GG CAPSULE PO SCH ×2 (10:19→21:14)
[2018-07-24] MEDS: CEFEPIME 1,000 MG in SYRINGE 1 EACH IV SCH ×2 (10:19→21:19)
[2018-07-24] MEDS: POTASSIUM CHLORIDE 20 MEQ TABLET PO SCH ×2 (10:19→21:23)
[2018-07-24] MEDS: IRON (CARBONYL) 45 MG TABLET PO SCH ×2 (10:19→21:15)
[2018-07-24] MEDS: METOPROLOL TARTRATE 25 MG TABLET PO SCH ×2 (10:19→21:13)
[2018-07-24] MEDS: PENTOXIFYLLINE 400 MG TABLET PO SCH (10:20)
[2018-07-24] MEDS: risperiDONE 0.5 MG TABLET PO SCH (10:20)
[2018-07-24] MEDS: SERTRALINE 25 MG TABLET PO SCH (10:20)
[2018-07-24] MEDS: LEVALBUTEROL 1.25 MG/3 ML NEB RESP TX SCH ×2 (11:30→19:55)
[2018-07-24] MEDS: DIGOXIN 0.25 MG TABLET PO SCH (13:12)
[2018-07-24] MEDS: ZALEPLON 5 MG CAPSULE PO PRN (21:30)
[2018-07-25] MEDS: ONDANSETRON 4 MG/2 ML VIAL IV PRN ×4 (00:24→21:35)
[2018-07-25] MEDS: LEVALBUTEROL 1.25 MG/3 ML NEB RESP TX SCH ×4 (01:09→18:59)
[2018-07-25] MEDS: INSULIN LISPRO 100 UNIT/ML SUBCUT SCH ×4 (04:35→18:00)
[2018-07-25 05:08] LABS: Basophils % 0.1 % (0.0-0.8); Hematocrit 35.2 VOL% (35.7-47.0); Hemoglobin 10.5 GM/DL (12.0-16.0); Immature Granulocytes % 1.9 %; Immature Granulocytes Absolute 0.16 #; Lymphocytes # 0.4 10*3/uL (1.4-4.0); Lymphocytes % 4.5 % (21.3-54.2); Mean Corpuscular HGB Conc 29.8 GM/DL (32-36); Mean Corpuscular Hemoglobin 25 PG (27-34); Mean Corpuscular Volume 82.2 FL (87-102); Mean Platelet Volume 9.8 FL (9.6-12.0); Monocytes # 0.2 10*3/uL (0.11-0.8); Monocytes % 2.7 % (1.7-12.7); Neutrophils # 7.6 10*3/uL (1.4-7.4); Neutrophils % 90.8 % (38.7-73.9); Platelet Count 463 T/CUMM (130-400); Red Blood Count 4.28 MC/CUMM (3.8-5.5); Red Cell Distribution Width 26.1 % (9.3-17.3); White Blood Count 8.4 T/CUMM (4-12)
[2018-07-25 05:15] LABS: INR 2.1
[2018-07-25 05:30] LABS: Calcium 8.4 MG/DL (8.5-10.1); Osmolality,Calculated 288.5 MOS/KG (273-304); Potassium 4.1 MMOL/L (3.5-5.1)
[2018-07-25 05:39] LABS: Lymphocytes 4 % (20-55); Platelet Estimate Adequate; Segmented Neutrophils 95 % (50-85); Total Cells Counted 100
[2018-07-25 05:40] LABS: Hypochromasia 1+
[2018-07-25] MEDS: LANSOPRAZOLE ODT 30 MG TABLET PER TUBE SCH (06:40)
[2018-07-25] MEDS: dilTIAZem Drip 125 MG/125 ML PREMIX IV SCH (10:41)
[2018-07-25] MEDS: methylPREDNISolone SOD SUC 40 MG/1 ML VIAL IV SCH ×2 (10:42→21:35)
[2018-07-25] MEDS: CEFEPIME 1,000 MG in SYRINGE 1 EACH IV SCH (10:42)
[2018-07-25] MEDS: CITALOPRAM 40 MG TABLET PO SCH (10:43)
[2018-07-25] MEDS: LACTOBACILLUS RHAMNOSUS GG CAPSULE PO SCH ×2 (10:43→21:35)
[2018-07-25] MEDS: AMIODARONE 200 MG TABLET PO SCH (10:43)
[2018-07-25] MEDS: POTASSIUM CHLORIDE 20 MEQ TABLET PO SCH ×2 (10:43→21:35)
[2018-07-25] MEDS: IRON (CARBONYL) 45 MG TABLET PO SCH ×2 (10:43→21:35)
[2018-07-25] MEDS: THEOPHYLLINE ER (24 HR) 400 MG CAPSULE PO SCH (10:43)
[2018-07-25] MEDS: METOPROLOL TARTRATE 25 MG TABLET PO SCH ×2 (10:43→21:35)
[2018-07-25] MEDS: risperiDONE 0.5 MG TABLET PO SCH (10:44)
[2018-07-25] MEDS: SERTRALINE 25 MG TABLET PO SCH (10:44)
[2018-07-25] MEDS: SODIUM CHLORIDE 0.9% 1,000 ML IV SCH (10:59)
[2018-07-25] MEDS: DIGOXIN 0.25 MG TABLET PO SCH (12:40)
[2018-07-25] MEDS: DILTIAZEM CD 240 MG CAPSULE PO SCH (12:40)
[2018-07-25] MEDS: WARFARIN 5 MG TABLET PO SCH (18:29)
[2018-07-25] MEDS: ZALEPLON 5 MG CAPSULE PO PRN (21:35)
[2018-07-26] MEDS: LEVALBUTEROL 1.25 MG/3 ML NEB RESP TX SCH ×4 (00:30→21:00)
[2018-07-26] MEDS: INSULIN LISPRO 100 UNIT/ML SUBCUT SCH ×4 (00:46→18:37)
[2018-07-26] MEDS: ONDANSETRON 4 MG/2 ML VIAL IV PRN ×4 (02:30→18:40)
[2018-07-26 05:19] LABS: Calcium 8.8 MG/DL (8.5-10.1); Potassium 4.5 MMOL/L (3.5-5.1)
[2018-07-26 05:30] LABS: Basophils % 0.2 % (0.0-0.8); Hemoglobin 11.1 GM/DL (12.0-16.0); Immature Granulocytes % 1.4 %; Immature Granulocytes Absolute 0.08 #; Lymphocytes # 0.4 10*3/uL (1.4-4.0); Lymphocytes % 7.4 % (21.3-54.2); Mean Corpuscular Hemoglobin 24 PG (27-34); Mean Corpuscular Volume 81.1 FL (87-102); Monocytes # 0.3 10*3/uL (0.11-0.8); Monocytes % 4.9 % (1.7-12.7); NRBC # 0.02 10*3/uL; Neutrophils # 4.9 10*3/uL (1.4-7.4); Neutrophils % 86.1 % (38.7-73.9); Platelet Count 456 T/CUMM (130-400); Red Blood Count 4.56 MC/CUMM (3.8-5.5); Red Cell Distribution Width 26.4 % (9.3-17.3); White Blood Count 5.7 T/CUMM (4-12)
[2018-07-26 05:51] LABS: Hypochromasia 2+; Platelet Estimate Adequate
[2018-07-26] MEDS: LANSOPRAZOLE ODT 30 MG TABLET PER TUBE SCH (07:15)
[2018-07-26] MEDS: METOPROLOL TARTRATE 25 MG TABLET PO SCH ×2 (09:26→21:47)
[2018-07-26] MEDS: DILTIAZEM CD 240 MG CAPSULE PO SCH (09:26)
[2018-07-26] MEDS: SERTRALINE 25 MG TABLET PO SCH (09:26)
[2018-07-26] MEDS: POTASSIUM CHLORIDE 20 MEQ TABLET PO SCH ×2 (09:26→21:46)
[2018-07-26] MEDS: AMIODARONE 200 MG TABLET PO SCH (09:26)
[2018-07-26] MEDS: risperiDONE 0.5 MG TABLET PO SCH (09:26)
[2018-07-26] MEDS: THEOPHYLLINE ER (24 HR) 400 MG CAPSULE PO SCH (09:26)
[2018-07-26] MEDS: IRON (CARBONYL) 45 MG TABLET PO SCH ×2 (09:26→21:46)
[2018-07-26] MEDS: LACTOBACILLUS RHAMNOSUS GG CAPSULE PO SCH ×2 (09:26→21:47)
[2018-07-26] MEDS: CITALOPRAM 40 MG TABLET PO SCH (09:26)
[2018-07-26] MEDS: methylPREDNISolone SOD SUC 40 MG/1 ML VIAL IV SCH ×2 (09:26→21:47)
[2018-07-26] MEDS: DIGOXIN 0.25 MG TABLET PO SCH (13:20)
[2018-07-26] MEDS: WARFARIN 5 MG TABLET PO SCH (18:36)
[2018-07-26] MEDS: VANCOMYCIN 50 MG/ML 60 ML/BOTTLE PO SCH (18:37)
[2018-07-26] MEDS ORDERED: PROMETHAZINE 25 MG/1 ML VIAL IM ONE (19:38)
[2018-07-26] MEDS: DILTIAZEM CD 180 MG CAPSULE PO SCH (21:46)
[2018-07-27] MEDS: LEVALBUTEROL 1.25 MG/3 ML NEB RESP TX SCH ×4 (00:40→19:15)
[2018-07-27] MEDS: VANCOMYCIN 50 MG/ML 60 ML/BOTTLE PO SCH ×4 (00:58→18:09)
[2018-07-27] MEDS: INSULIN LISPRO 100 UNIT/ML SUBCUT SCH ×4 (00:58→17:56)
[2018-07-27] MEDS: LANSOPRAZOLE ODT 30 MG TABLET PER TUBE SCH (05:39)
[2018-07-27 05:41] LABS: INR 2.1
[2018-07-27 05:46] LABS: Hematocrit 39.3 VOL% (35.7-47.0); Hemoglobin 11.9 GM/DL (12.0-16.0); Immature Granulocytes Absolute 0.07 #; Lymphocytes # 0.5 10*3/uL (1.4-4.0); Lymphocytes % 6.7 % (21.3-54.2); Mean Corpuscular HGB Conc 30.3 GM/DL (32-36); Mean Corpuscular Hemoglobin 25 PG (27-34); Mean Corpuscular Volume 81.2 FL (87-102); Mean Platelet Volume 9.2 FL (9.6-12.0); Monocytes # 0.2 10*3/uL (0.11-0.8); Monocytes % 3.1 % (1.7-12.7); Neutrophils # 6.1 10*3/uL (1.4-7.4); Neutrophils % 89.2 % (38.7-73.9); Platelet Count 384 T/CUMM (130-400); Red Blood Count 4.84 MC/CUMM (3.8-5.5); Red Cell Distribution Width 25.6 % (9.3-17.3); White Blood Count 6.9 T/CUMM (4-12)
[2018-07-27 05:49] LABS: PT Patient Result 22.3 SECS
[2018-07-27 06:05] LABS: Calcium 8.4 MG/DL (8.5-10.1); Osmolality,Calculated 280.8 MOS/KG (273-304); Potassium 4.6 MMOL/L (3.5-5.1)
[2018-07-27 06:07] LABS: Hypochromasia 2+; Ovalocytes Slight; Platelet Estimate Adequate
[2018-07-27] MEDS: THEOPHYLLINE ER (24 HR) 400 MG CAPSULE PO SCH (08:40)
[2018-07-27] MEDS: IRON (CARBONYL) 45 MG TABLET PO SCH ×2 (08:40→21:26)
[2018-07-27] MEDS: DILTIAZEM CD 180 MG CAPSULE PO SCH ×2 (08:40→21:26)
[2018-07-27] MEDS: AMIODARONE 200 MG TABLET PO SCH (08:40)
[2018-07-27] MEDS: CITALOPRAM 40 MG TABLET PO SCH (08:40)
[2018-07-27] MEDS: LACTOBACILLUS RHAMNOSUS GG CAPSULE PO SCH ×2 (08:40→21:27)
[2018-07-27] MEDS: POTASSIUM CHLORIDE 20 MEQ TABLET PO SCH ×2 (08:40→21:26)
[2018-07-27] MEDS: METOPROLOL TARTRATE 25 MG TABLET PO SCH ×2 (08:41→21:26)
[2018-07-27] MEDS: SERTRALINE 25 MG TABLET PO SCH (08:41)
[2018-07-27] MEDS: methylPREDNISolone SOD SUC 40 MG/1 ML VIAL IV SCH ×2 (08:41→21:26)
[2018-07-27] MEDS: risperiDONE 0.5 MG TABLET PO SCH (08:41)
[2018-07-27] MEDS: DIGOXIN 0.25 MG TABLET PO SCH (12:58)
[2018-07-27] MEDS: ACETAMINOPHEN 325 MG TABLET PO PRN (14:56)
[2018-07-27] MEDS: NYSTATIN 500,000 UNIT/5 ML UDCUP SWISH/SWAL SCH ×2 (18:09→21:25)
[2018-07-27] MEDS: WARFARIN 5 MG TABLET PO SCH (18:09)
[2018-07-28] MEDS: LEVALBUTEROL 1.25 MG/3 ML NEB RESP TX SCH ×4 (00:23→19:57)
[2018-07-28] MEDS: INSULIN LISPRO 100 UNIT/ML SUBCUT SCH ×4 (01:17→17:08)
[2018-07-28] MEDS: VANCOMYCIN 50 MG/ML 60 ML/BOTTLE PO SCH ×6 (01:18→23:58)
[2018-07-28 05:04] LABS: Basophils % 0.1 % (0.0-0.8); Hematocrit 37.7 VOL% (35.7-47.0); Hemoglobin 11.3 GM/DL (12.0-16.0); Immature Granulocytes % 0.9 %; Immature Granulocytes Absolute 0.08 #; Lymphocytes # 0.4 10*3/uL (1.4-4.0); Lymphocytes % 4.4 % (21.3-54.2); Mean Corpuscular Hemoglobin 25 PG (27-34); Mean Corpuscular Volume 81.6 FL (87-102); Mean Platelet Volume 9.3 FL (9.6-12.0); Monocytes # 0.3 10*3/uL (0.11-0.8); Monocytes % 3.4 % (1.7-12.7); Neutrophils # 7.8 10*3/uL (1.4-7.4); Neutrophils % 91.2 % (38.7-73.9); Platelet Count 329 T/CUMM (130-400); Red Blood Count 4.62 MC/CUMM (3.8-5.5); Red Cell Distribution Width 25.1 % (9.3-17.3); White Blood Count 8.6 T/CUMM (4-12)
[2018-07-28 05:05] LABS: INR 2.6
[2018-07-28 05:08] LABS: PT Patient Result 27.9 SECS
[2018-07-28 05:15] LABS: Calcium 8.1 MG/DL (8.5-10.1); Osmolality,Calculated 279.1 MOS/KG (273-304); Potassium 4.5 MMOL/L (3.5-5.1)
[2018-07-28 05:56] LABS: Lymphocytes 2 % (20-55); Segmented Neutrophils 96 % (50-85); Total Cells Counted 100
[2018-07-28 05:57] LABS: Anisocytosis 3+; Hypochromasia 1+; Ovalocytes 1+; Platelet Estimate Adequate; Smudge Cells Few
[2018-07-28 05:58] LABS: Stomatocytes Slight; Target Cells 1+
[2018-07-28] MEDS: LANSOPRAZOLE ODT 30 MG TABLET PER TUBE SCH (06:19)
[2018-07-28] MEDS: methylPREDNISolone SOD SUC 40 MG/1 ML VIAL IV SCH ×2 (09:36→21:06)
[2018-07-28] MEDS: NYSTATIN 500,000 UNIT/5 ML UDCUP SWISH/SWAL SCH ×4 (09:45→21:06)
[2018-07-28] MEDS: THEOPHYLLINE ER (24 HR) 400 MG CAPSULE PO SCH (09:46)
[2018-07-28] MEDS: LACTOBACILLUS RHAMNOSUS GG CAPSULE PO SCH ×2 (09:46→21:06)
[2018-07-28] MEDS: risperiDONE 0.5 MG TABLET PO SCH (09:47)
[2018-07-28] MEDS: CITALOPRAM 40 MG TABLET PO SCH (09:47)
[2018-07-28] MEDS: IRON (CARBONYL) 45 MG TABLET PO SCH ×2 (09:47→21:06)
[2018-07-28] MEDS: METOPROLOL TARTRATE 25 MG TABLET PO SCH ×2 (09:47→21:06)
[2018-07-28] MEDS: DILTIAZEM CD 180 MG CAPSULE PO SCH ×2 (09:47→21:06)
[2018-07-28] MEDS: POTASSIUM CHLORIDE 20 MEQ TABLET PO SCH ×2 (09:48→21:06)
[2018-07-28] MEDS: SERTRALINE 25 MG TABLET PO SCH (09:48)
[2018-07-28] MEDS: AMIODARONE 200 MG TABLET PO SCH (09:52)
[2018-07-28] MEDS: ACETAMINOPHEN 325 MG TABLET PO PRN (10:00)
[2018-07-28] MEDS: DIGOXIN 0.25 MG TABLET PO SCH (13:31)
[2018-07-28] MEDS: WARFARIN 5 MG TABLET PO SCH ×2 (16:57→17:28)
[2018-07-28] MEDS: ZALEPLON 5 MG CAPSULE PO PRN (21:13)
[2018-07-29] MEDS: INSULIN LISPRO 100 UNIT/ML SUBCUT SCH ×4 (00:21→17:04)
[2018-07-29] MEDS: LEVALBUTEROL 1.25 MG/3 ML NEB RESP TX SCH ×4 (00:42→19:05)
[2018-07-29 04:45] LABS: Basophils % 0.1 % (0.0-0.8); Hemoglobin 11.5 GM/DL (12.0-16.0); Immature Granulocytes % 1.2 %; Immature Granulocytes Absolute 0.12 #; Lymphocytes # 0.4 10*3/uL (1.4-4.0); Lymphocytes % 4.4 % (21.3-54.2); Mean Corpuscular HGB Conc 30.3 GM/DL (32-36); Mean Corpuscular Hemoglobin 25 PG (27-34); Mean Corpuscular Volume 82.1 FL (87-102); Mean Platelet Volume 9.3 FL (9.6-12.0); Monocytes # 0.4 10*3/uL (0.11-0.8); Monocytes % 4.2 % (1.7-12.7); Neutrophils # 8.8 10*3/uL (1.4-7.4); Neutrophils % 90.1 % (38.7-73.9); Platelet Count 303 T/CUMM (130-400); Red Blood Count 4.63 MC/CUMM (3.8-5.5); Red Cell Distribution Width 25.2 % (9.3-17.3); White Blood Count 9.8 T/CUMM (4-12)
[2018-07-29 04:51] LABS: INR 3.8
[2018-07-29 04:52] LABS: PT Patient Result 40.4 SECS
[2018-07-29 04:56] LABS: Calcium 8.4 MG/DL (8.5-10.1); Potassium 4.6 MMOL/L (3.5-5.1)
[2018-07-29 05:50] LABS: Anisocytosis 1+; Hypochromasia 1+; Lymphocytes 3 % (20-55); Ovalocytes 1+; Segmented Neutrophils 94 % (50-85); Total Cells Counted 100
[2018-07-29 05:51] LABS: Microcytosis 1+; Platelet Estimate Adequate; Target Cells 1+
[2018-07-29] MEDS: VANCOMYCIN 50 MG/ML 60 ML/BOTTLE PO SCH ×3 (06:09→17:04)
[2018-07-29] MEDS: LANSOPRAZOLE ODT 30 MG TABLET PER TUBE SCH (06:09)
[2018-07-29] MEDS: DILTIAZEM CD 180 MG CAPSULE PO SCH ×2 (08:43→21:14)
[2018-07-29] MEDS: CITALOPRAM 40 MG TABLET PO SCH (08:43)
[2018-07-29] MEDS: METOPROLOL TARTRATE 25 MG TABLET PO SCH ×2 (08:44→21:13)
[2018-07-29] MEDS: SERTRALINE 25 MG TABLET PO SCH (08:44)
[2018-07-29] MEDS: IRON (CARBONYL) 45 MG TABLET PO SCH ×2 (08:44→21:13)
[2018-07-29] MEDS: NYSTATIN 500,000 UNIT/5 ML UDCUP SWISH/SWAL SCH ×4 (08:44→21:12)
[2018-07-29] MEDS: POTASSIUM CHLORIDE 20 MEQ TABLET PO SCH ×2 (08:44→21:13)
[2018-07-29] MEDS: AMIODARONE 200 MG TABLET PO SCH (08:44)
[2018-07-29] MEDS: risperiDONE 0.5 MG TABLET PO SCH (08:44)
[2018-07-29] MEDS: THEOPHYLLINE ER (24 HR) 400 MG CAPSULE PO SCH (08:44)
[2018-07-29] MEDS: LACTOBACILLUS RHAMNOSUS GG CAPSULE PO SCH ×2 (08:44→21:14)
[2018-07-29] MEDS: methylPREDNISolone SOD SUC 40 MG/1 ML VIAL IV SCH ×2 (09:48→21:12)
[2018-07-29] MEDS: oxyCODONE IR 5 MG TABLET PO SCH ×2 (11:40→21:13)
[2018-07-29] MEDS: DIGOXIN 0.25 MG TABLET PO SCH (13:38)
[2018-07-29] MEDS ORDERED: AMIODARONE 200 MG TABLET PO SCH (21:00)
[2018-07-29] MEDS: MIRTAZAPINE 30 MG TABLET PO SCH (21:12)
[2018-07-30] MEDS: INSULIN LISPRO 100 UNIT/ML SUBCUT SCH ×4 (00:11→18:56)
[2018-07-30] MEDS: LEVALBUTEROL 1.25 MG/3 ML NEB RESP TX SCH ×4 (00:34→19:31)
[2018-07-30 05:21] LABS: Basophils % 0.1 % (0.0-0.8); Hematocrit 37.6 VOL% (35.7-47.0); Hemoglobin 11.4 GM/DL (12.0-16.0); Immature Granulocytes % 0.7 %; Immature Granulocytes Absolute 0.06 #; Lymphocytes # 0.4 10*3/uL (1.4-4.0); Lymphocytes % 4.9 % (21.3-54.2); Mean Corpuscular HGB Conc 30.3 GM/DL (32-36); Mean Corpuscular Hemoglobin 25 PG (27-34); Mean Corpuscular Volume 82.3 FL (87-102); Mean Platelet Volume 9.6 FL (9.6-12.0); Monocytes # 0.3 10*3/uL (0.11-0.8); Monocytes % 3.4 % (1.7-12.7); Neutrophils # 7.4 10*3/uL (1.4-7.4); Neutrophils % 90.9 % (38.7-73.9); Platelet Count 253 T/CUMM (130-400); Red Blood Count 4.57 MC/CUMM (3.8-5.5); Red Cell Distribution Width 25.5 % (9.3-17.3); White Blood Count 8.2 T/CUMM (4-12)
[2018-07-30 05:32] LABS: INR 3.1
[2018-07-30 05:33] LABS: PT Patient Result 33.8 SECS
[2018-07-30 05:40] LABS: Band Neutrophils 1 % (0-10); Hypochromasia 1+; Lymphocytes 4 % (20-55); Segmented Neutrophils 93 % (50-85); Total Cells Counted 100
[2018-07-30 05:41] LABS: Microcytosis 1+; Ovalocytes Slight
[2018-07-30 05:50] LABS: Calcium 8.2 MG/DL (8.5-10.1); Osmolality,Calculated 281.7 MOS/KG (273-304); Potassium 4.5 MMOL/L (3.5-5.1)
[2018-07-30] MEDS: VANCOMYCIN 50 MG/ML 60 ML/BOTTLE PO SCH ×4 (06:06→18:57)
[2018-07-30] MEDS: LANSOPRAZOLE ODT 30 MG TABLET PER TUBE SCH (06:10)
[2018-07-30] MEDS: THEOPHYLLINE ER (24 HR) 400 MG CAPSULE PO SCH (10:12)
[2018-07-30] MEDS: DILTIAZEM CD 240 MG CAPSULE PO SCH ×2 (10:15→20:33)
[2018-07-30] MEDS: CITALOPRAM 40 MG TABLET PO SCH (10:17)
[2018-07-30] MEDS: LACTOBACILLUS RHAMNOSUS GG CAPSULE PO SCH ×2 (10:18→20:33)
[2018-07-30] MEDS: IRON (CARBONYL) 45 MG TABLET PO SCH ×2 (10:18→20:34)
[2018-07-30] MEDS: POTASSIUM CHLORIDE 20 MEQ TABLET PO SCH ×2 (10:18→20:33)
[2018-07-30] MEDS: NYSTATIN 500,000 UNIT/5 ML UDCUP SWISH/SWAL SCH ×4 (10:19→20:33)
[2018-07-30] MEDS: METOPROLOL TARTRATE 25 MG TABLET PO SCH ×2 (10:19→20:34)
[2018-07-30] MEDS: risperiDONE 0.5 MG TABLET PO SCH (10:20)
[2018-07-30] MEDS: oxyCODONE IR 5 MG TABLET PO SCH ×2 (10:20→20:34)
[2018-07-30] MEDS: SERTRALINE 25 MG TABLET PO SCH (10:21)
[2018-07-30] MEDS: AMIODARONE 200 MG TABLET PO SCH (10:22)
[2018-07-30] MEDS: predniSONE 10 MG TABLET PO SCH (10:35)
[2018-07-30] MEDS: DIGOXIN 0.25 MG TABLET PO SCH (13:37)
[2018-07-30] MEDS ORDERED: WARFARIN 2.5 MG TABLET PO ONE (18:00)
[2018-07-30] MEDS: MIRTAZAPINE 30 MG TABLET PO SCH (20:34)
[2018-07-31] MEDS: VANCOMYCIN 50 MG/ML 60 ML/BOTTLE PO SCH ×4 (00:55→18:03)
[2018-07-31] MEDS: LEVALBUTEROL 1.25 MG/3 ML NEB RESP TX SCH ×4 (01:01→19:54)
[2018-07-31] MEDS: INSULIN LISPRO 100 UNIT/ML SUBCUT SCH ×4 (05:32→18:03)
[2018-07-31] MEDS: LANSOPRAZOLE ODT 30 MG TABLET PER TUBE SCH (07:20)
[2018-07-31] MEDS: NYSTATIN 500,000 UNIT/5 ML UDCUP SWISH/SWAL SCH ×4 (08:32→23:10)
[2018-07-31] MEDS: LACTOBACILLUS RHAMNOSUS GG CAPSULE PO SCH ×2 (08:32→23:09)
[2018-07-31] MEDS: POTASSIUM CHLORIDE 20 MEQ TABLET PO SCH ×2 (08:32→23:09)
[2018-07-31] MEDS: oxyCODONE IR 5 MG TABLET PO SCH ×2 (08:32→23:10)
[2018-07-31] MEDS: METOPROLOL TARTRATE 25 MG TABLET PO SCH ×2 (08:32→23:09)
[2018-07-31] MEDS: DILTIAZEM CD 240 MG CAPSULE PO SCH ×2 (08:33→23:08)
[2018-07-31] MEDS: SERTRALINE 25 MG TABLET PO SCH (08:33)
[2018-07-31] MEDS: IRON (CARBONYL) 45 MG TABLET PO SCH ×2 (08:33→23:09)
[2018-07-31] MEDS: predniSONE 10 MG TABLET PO SCH (08:33)
[2018-07-31] MEDS: CITALOPRAM 40 MG TABLET PO SCH (08:33)
[2018-07-31] MEDS: risperiDONE 0.5 MG TABLET PO SCH (08:33)
[2018-07-31] MEDS: THEOPHYLLINE ER (24 HR) 400 MG CAPSULE PO SCH (08:33)
[2018-07-31] MEDS: AMIODARONE 200 MG TABLET PO SCH (08:33)
[2018-07-31 08:47] LABS: INR 2.2
[2018-07-31 08:58] LABS: PT Patient Result 24.1 SECS
[2018-07-31] MEDS: DIGOXIN 0.25 MG TABLET PO SCH (12:12)
[2018-07-31] MEDS ORDERED: WARFARIN 2.5 MG TABLET PO SCH (18:00)
[2018-07-31] MEDS: MIRTAZAPINE 30 MG TABLET PO SCH (23:10)
[2018-08-01] MEDS: LEVALBUTEROL 1.25 MG/3 ML NEB RESP TX SCH ×2 (00:39→08:00)
[2018-08-01] MEDS: VANCOMYCIN 50 MG/ML 60 ML/BOTTLE PO SCH ×2 (01:02→06:44)
[2018-08-01] MEDS: INSULIN LISPRO 100 UNIT/ML SUBCUT SCH ×3 (01:03→12:03)
[2018-08-01 04:58] LABS: INR 1.6
[2018-08-01] MEDS: LANSOPRAZOLE ODT 30 MG TABLET PER TUBE SCH (06:51)
[2018-08-01 08:22] VITALS: BP 104/64
[2018-08-01] MEDS: NYSTATIN 500,000 UNIT/5 ML UDCUP SWISH/SWAL SCH (09:26)
[2018-08-01] MEDS: IRON (CARBONYL) 45 MG TABLET PO SCH (09:26)
[2018-08-01] MEDS: THEOPHYLLINE ER (24 HR) 400 MG CAPSULE PO SCH (09:26)
[2018-08-01] MEDS: POTASSIUM CHLORIDE 20 MEQ TABLET PO SCH (09:27)
[2018-08-01] MEDS: risperiDONE 0.5 MG TABLET PO SCH (09:27)
[2018-08-01] MEDS: DILTIAZEM CD 240 MG CAPSULE PO SCH (09:27)
[2018-08-01] MEDS: LACTOBACILLUS RHAMNOSUS GG CAPSULE PO SCH (09:27)
[2018-08-01] MEDS: AMIODARONE 200 MG TABLET PO SCH (09:27)
[2018-08-01] MEDS: predniSONE 10 MG TABLET PO SCH (09:27)
[2018-08-01] MEDS: METOPROLOL TARTRATE 25 MG TABLET PO SCH (09:27)
[2018-08-01] MEDS: CITALOPRAM 40 MG TABLET PO SCH (09:27)
[2018-08-01] MEDS: oxyCODONE IR 5 MG TABLET PO SCH (09:28)
[2018-08-01] MEDS: SERTRALINE 25 MG TABLET PO SCH (09:28)
== END 2018-08-01 12:45 | disposition swing bed (61) | DRG 207 ==
LOC: EDUNIT# → EDBD → N.ED 21:08 → SUATTDRO 07-12 00:58 → N.EDINP 07-12 00:58 → N.ICU 07-12 01:38 → N.2E 07-19 15:54 → N.TELES 07-21 13:59 → N.TELEN 07-26 17:09
PROVIDERS: ADMIT Family Medicine; ATTEND Internal Medicine

== ENCOUNTER 2018-11-26 15:18 | Inpatient (IN) ==
[2018-11-26] MEDS ORDERED: MAGNESIUM SULF RIDER 4 GM in PREMIX 1 EACH IV PRN (16:41)
[2018-11-26] MEDS ORDERED: MAGNESIUM SULF RIDER 2 GM in PREMIX 1 EACH IV PRN (16:41)
[2018-11-26] MEDS ORDERED: ACETAMINOPHEN 325 MG TABLET PO PRN (16:41)
[2018-11-26] MEDS ORDERED: ONDANSETRON 4 MG/2 ML VIAL IV PRN (16:41)
[2018-11-26] MEDS ORDERED: POLYETHYLENE GLYCOL POWDER 17 GM PACK PO PRN (16:49)
[2018-11-26] MEDS ORDERED: WARFARIN 5 MG TABLET PO SCH (17:00)
[2018-11-26 18:48] LABS: INR 4.6
[2018-11-26 18:54] LABS: PT Patient Result 49.5 SECS
[2018-11-26] MEDS: ALBUTEROL/IPRATROPIUM 3 ML NEB RESP TX SCH (20:15)
[2018-11-26] MEDS ORDERED: DICLOFENAC 1% GEL 100 GM TUBE TOP PRN (21:00)
[2018-11-26] MEDS: methylPREDNISolone SOD SUC 40 MG/1 ML VIAL IV SCH (22:32)
[2018-11-26] MEDS: MIRTAZAPINE 30 MG TABLET PO SCH (22:33)
[2018-11-26] MEDS: POTASSIUM CHLORIDE 20 MEQ TABLET PO SCH (22:33)
[2018-11-26] MEDS: IRON (CARBONYL) 45 MG TABLET PO SCH (22:33)
[2018-11-26] MEDS: BUDESONIDE/FORMOTEROL 160-4.5 INHALER 6 GM INH SCH (22:34)
[2018-11-26] MEDS: METOPROLOL TARTRATE 25 MG TABLET PO SCH (22:34)
[2018-11-27] MEDS: ALBUTEROL/IPRATROPIUM 3 ML NEB RESP TX SCH ×4 (00:45→19:26)
[2018-11-27] MEDS: methylPREDNISolone SOD SUC 40 MG/1 ML VIAL IV SCH ×4 (04:02→23:37)
[2018-11-27 06:15] LABS: INR 3.9
[2018-11-27 06:17] LABS: PT Patient Result 42.2 SECS
[2018-11-27 06:24] LABS: Basophils % 0.2 % (0.0-0.8); Hematocrit 35.9 VOL% (35.7-47.0); Hemoglobin 10.4 GM/DL (12.0-16.0); Immature Granulocytes % 1.1 %; Immature Granulocytes Absolute 0.06 #; Lymphocytes # 0.3 10*3/uL (1.4-4.0); Lymphocytes % 5.8 % (21.3-54.2); Mean Corpuscular Volume 97.6 FL (87-102); Mean Platelet Volume 10.2 FL (9.6-12.0); Monocytes % 1.1 % (1.7-12.7); Neutrophils % 91.8 % (38.7-73.9); Platelet Count 194 T/CUMM (130-400); Red Blood Count 3.68 MC/CUMM (3.8-5.5); Red Cell Distribution Width 18.5 % (9.3-17.3); White Blood Count 5.5 T/CUMM (4-12)
[2018-11-27 06:29] LABS: Hypochromasia 1+; Lymphocytes 5 % (20-55); Microcytosis 1+; Platelet Estimate Adequate; Segmented Neutrophils 94 % (50-85); Total Cells Counted 100
[2018-11-27 08:49] LABS: Alanine Aminotransferase 11 U/L (13-56); Alkaline Phosphatase 91 U/L (45-117); Aspartate Amino Transferase 11 U/L (0-37); Bilirubin,Total < 0.39 MG/DL (0.2-1.0); Blood Urea Nitrogen 22 MG/DL (7-18); Calcium 8.5 MG/DL (8.5-10.1); Glucose 122 MG/DL (74-106); Osmolality,Calculated 282.4 MOS/KG (273-304); Total Protein 7.5 G/DL (6.4-8.3)
[2018-11-27 09:32] LABS: ABG Base Excess 20.3 MMOL/L (-2.5-2.5); ABG HCO3 44.4 MMOL/L (20-26); ABG Oxygen Saturation 84.3 % (95-100); ABG PH 7.295 (7.35-7.45); ABG PO2 54.6 MM HG (80-95); ABG TCO2 47.9 MMOL/L (23-27); Allen Test Positive
[2018-11-27] MEDS: THEOPHYLLINE ER (24 HR) 400 MG CAPSULE PO SCH (09:37)
[2018-11-27] MEDS: METOPROLOL TARTRATE 25 MG TABLET PO SCH ×2 (09:38→20:54)
[2018-11-27] MEDS: IRON (CARBONYL) 45 MG TABLET PO SCH ×2 (09:38→20:52)
[2018-11-27] MEDS: SERTRALINE 25 MG TABLET PO SCH (09:41)
[2018-11-27] MEDS: POTASSIUM CHLORIDE 20 MEQ TABLET PO SCH ×2 (09:43→20:52)
[2018-11-27] MEDS: BUDESONIDE/FORMOTEROL 160-4.5 INHALER 6 GM INH SCH ×2 (09:43→20:58)
[2018-11-27] MEDS: PANTOPRAZOLE 40 MG TABLET PO SCH (09:44)
[2018-11-27] MEDS: FUROSEMIDE 40 MG/4 ML VIAL IV SCH ×2 (09:46→18:47)
[2018-11-27] MEDS: AMIODARONE 200 MG TABLET PO SCH (09:50)
[2018-11-27] MEDS: CITALOPRAM 40 MG TABLET PO SCH (09:56)
[2018-11-27] MEDS: risperiDONE 0.5 MG TABLET PO SCH (09:56)
[2018-11-27] MEDS: cephALEXin 500 MG CAPSULE PO SCH ×2 (10:19→20:53)
[2018-11-27] MEDS ORDERED: DIGOXIN 0.25 MG TABLET PO SCH (13:00)
[2018-11-27 15:12] LABS: ABG Base Excess 22.2 MMOL/L (-2.5-2.5); ABG HCO3 46.9 MMOL/L (20-26); ABG Oxygen Saturation 96.4 % (95-100); ABG PH 7.281 (7.35-7.45); ABG PO2 90.6 MM HG (80-95); ABG TCO2 50.3 MMOL/L (23-27); Allen Test Positive; Pt O2 Delivery Device Other
[2018-11-27] MEDS ORDERED: WARFARIN 5 MG TABLET PO SCH (16:49)
[2018-11-27 17:11] LABS: ABG Base Excess 23.6 MMOL/L (-2.5-2.5); ABG HCO3 48.1 MMOL/L (20-26); ABG Oxygen Saturation 76.7 % (95-100); ABG PH 7.331 (7.35-7.45); ABG PO2 45.6 MM HG (80-95); ABG TCO2 50.7 MMOL/L (23-27); Allen Test Positive; Pt O2 Delivery Device BIPAP
[2018-11-27 20:54] LABS: ABG Base Excess 23.6 MMOL/L (-2.5-2.5); ABG HCO3 48.3 MMOL/L (20-26); ABG Oxygen Saturation 89.2 % (95-100); ABG PO2 57.4 MM HG (80-95); ABG TCO2 49.4 MMOL/L (23-27); Allen Test Positive; Pt O2 Delivery Device BIPAP
[2018-11-27] MEDS: MIRTAZAPINE 30 MG TABLET PO SCH (20:55)
[2018-11-27 20:57] LABS: ABG PCO2 93.5 MM HG (35-48)
[2018-11-28] MEDS: ALBUTEROL/IPRATROPIUM 3 ML NEB RESP TX SCH ×4 (01:55→19:25)
[2018-11-28 05:32] LABS: INR 2.3
[2018-11-28 05:57] LABS: Basophils % 0.2 % (0.0-0.8); Hematocrit 33.6 VOL% (35.7-47.0); Immature Granulocytes % 0.6 %; Immature Granulocytes Absolute 0.03 #; Lymphocytes # 0.3 10*3/uL (1.4-4.0); Lymphocytes % 5.8 % (21.3-54.2); Mean Corpuscular HGB Conc 28.6 GM/DL (32-36); Mean Corpuscular Volume 97.4 FL (87-102); Monocytes % 1.2 % (1.7-12.7); Neutrophils % 92.2 % (38.7-73.9); Platelet Count 201 T/CUMM (130-400); Red Blood Count 3.45 MC/CUMM (3.8-5.5); Red Cell Distribution Width 18.6 % (9.3-17.3); White Blood Count 4.8 T/CUMM (4-12)
[2018-11-28 05:59] LABS: Hemoglobin 9.6 GM/DL (12.0-16.0)
[2018-11-28] MEDS: methylPREDNISolone SOD SUC 40 MG/1 ML VIAL IV SCH ×3 (06:05→20:34)
[2018-11-28 06:16] LABS: Hypochromasia 1+; Lymphocytes 2 % (20-55); Microcytosis 1+; Platelet Estimate Adequate; Segmented Neutrophils 97 % (50-85); Total Cells Counted 100
[2018-11-28 07:18] LABS: Blood Urea Nitrogen 27 MG/DL (7-18); Calcium 8.6 MG/DL (8.5-10.1); Glucose 124 MG/DL (74-106); Osmolality,Calculated 284.4 MOS/KG (273-304)
[2018-11-28 07:25] LABS: ABG Base Excess 24.9 MMOL/L (-2.5-2.5); ABG HCO3 49.8 MMOL/L (20-26); ABG Oxygen Saturation 84.3 % (95-100); ABG PH 7.382 (7.35-7.45); ABG PO2 52.2 MM HG (80-95); ABG TCO2 50.6 MMOL/L (23-27); Allen Test Positive; Pt O2 Delivery Device BIPAP
[2018-11-28 07:28] LABS: ABG PCO2 93.3 MM HG (35-48)
[2018-11-28] MEDS: FUROSEMIDE 40 MG/4 ML VIAL IV SCH ×2 (08:58→16:34)
[2018-11-28] MEDS: PANTOPRAZOLE 40 MG TABLET PO SCH (08:59)
[2018-11-28] MEDS: THEOPHYLLINE ER (24 HR) 400 MG CAPSULE PO SCH (09:00)
[2018-11-28] MEDS: AMIODARONE 200 MG TABLET PO SCH (09:00)
[2018-11-28] MEDS: SERTRALINE 25 MG TABLET PO SCH (09:00)
[2018-11-28] MEDS: IRON (CARBONYL) 45 MG TABLET PO SCH (09:00)
[2018-11-28] MEDS: POTASSIUM CHLORIDE 20 MEQ TABLET PO SCH (09:00)
[2018-11-28] MEDS: CITALOPRAM 40 MG TABLET PO SCH (09:00)
[2018-11-28] MEDS: cephALEXin 500 MG CAPSULE PO SCH (09:00)
[2018-11-28] MEDS: risperiDONE 0.5 MG TABLET PO SCH (09:00)
[2018-11-28] MEDS: BUDESONIDE/FORMOTEROL 160-4.5 INHALER 6 GM INH SCH ×2 (10:19→21:38)
[2018-11-28] MEDS: METOPROLOL TARTRATE 25 MG TABLET PO SCH (10:19)
[2018-11-28] MEDS ORDERED: MAGNESIUM SULF RIDER 2 GM in PREMIX 1 EACH IV ONE (12:30)
[2018-11-28 14:41] LABS: ABG Base Excess 23.2 MMOL/L (-2.5-2.5); ABG HCO3 47.7 MMOL/L (20-26); ABG Oxygen Saturation 83.3 % (95-100); ABG PH 7.359 (7.35-7.45); ABG PO2 53.4 MM HG (80-95); ABG TCO2 49.3 MMOL/L (23-27); Allen Test Positive; Pt O2 Delivery Device BIPAP
[2018-11-28 14:50] LABS: ABG PCO2 95.6 MM HG (35-48)
[2018-11-28] MEDS ORDERED: MEROPENEM 1,000 MG in SODIUM CHLORIDE 0.9% 100 ML IV SCH (16:00)
[2018-11-28] MEDS ORDERED: ALBUTEROL/IPRATROPIUM 3 ML NEB RESP TX ONE (16:05)
[2018-11-28] MEDS ORDERED: BUDESONIDE 0.5 MG/2 ML NEB RESP TX ONE (16:06)
[2018-11-28] MEDS ORDERED: ALBUTEROL 2.5 MG/3 ML NEB RESP TX PRN (16:38)
[2018-11-28] MEDS: MEROPENEM 1,000 MG in SODIUM CHLORIDE 0.9% 100 ML IV SCH (16:57)
[2018-11-28] MEDS: LANSOPRAZOLE ODT 30 MG TABLET PO SCH (16:57)
[2018-11-28] MEDS: WARFARIN 2.5 MG TABLET PO SCH (17:28)
[2018-11-28] MEDS ORDERED: WARFARIN 2.5 MG TABLET PO SCH (18:00)
[2018-11-28] MEDS ORDERED: WARFARIN 5 MG TABLET PO SCH (18:00)
[2018-11-28 18:30] LABS: ABG Base Excess 22.2 MMOL/L (-2.5-2.5); ABG HCO3 46.9 MMOL/L (20-26); ABG Oxygen Saturation 99.7 % (95-100); ABG PH 7.301 (7.35-7.45); ABG TCO2 49.6 MMOL/L (23-27)
[2018-11-28] MEDS ORDERED: ETOMIDATE 20 MG/10 ML VIAL IV ONE ×3 (18:39→18:42)
[2018-11-28] MEDS ORDERED: SUCCINYLCHOLINE 200 MG/10 ML VIAL ONE (18:40)
[2018-11-28] MEDS ORDERED: PROPOFOL 1,000 MG/100 ML BOTTLE IV ONE (18:49)
[2018-11-28] MEDS ORDERED: SUCCINYLCHOLINE 200 MG/10 ML VIAL IV ONE (18:57)
[2018-11-28] MEDS: PROPOFOL 1,000 MG/100 ML BOTTLE IV SCH ×2 (18:59→22:11)
[2018-11-28] MEDS ORDERED: ONDANSETRON 4 MG/2 ML VIAL ONE (19:00)
[2018-11-28] MEDS ORDERED: ALBUTEROL/IPRATROPIUM 3 ML NEB RESP TX SCH (19:00)
[2018-11-28] MEDS ORDERED: ONDANSETRON 4 MG/2 ML VIAL IV ONE ×2 (19:00→20:30)
[2018-11-28] MEDS: BUDESONIDE 0.5 MG/2 ML NEB RESP TX SCH (19:25)
[2018-11-28 20:42] LABS: ABG Base Excess 24.8 MMOL/L (-2.5-2.5); ABG HCO3 50.1 MMOL/L (20-26); ABG PCO2 50.1 MM HG (35-48); ABG TCO2 45.7 MMOL/L (23-27); Pt O2 Delivery Device Ventilator
[2018-11-28 20:46] LABS: ABG PH 7.612 (7.35-7.45)
[2018-11-28] MEDS: FAMOTIDINE 20 MG/2 ML VIAL IV SCH (22:00)
[2018-11-28] MEDS: FUROSEMIDE 40 MG TABLET PO SCH (22:00)
[2018-11-28] MEDS: MIRTAZAPINE 30 MG TABLET PO SCH (22:00)
[2018-11-28] MEDS: FLUCONAZOLE INJ 200 MG in PREMIX 1 EACH IV SCH (22:19)
[2018-11-29] MEDS: ALBUTEROL/IPRATROPIUM 3 ML NEB RESP TX SCH ×4 (00:52→19:04)
[2018-11-29] MEDS: MEROPENEM 1,000 MG in SODIUM CHLORIDE 0.9% 100 ML IV SCH ×3 (00:57→16:48)
[2018-11-29] MEDS: PROPOFOL 1,000 MG/100 ML BOTTLE IV SCH ×9 (01:26→22:48)
[2018-11-29 03:23] LABS: Allen Test Positive; Pt O2 Delivery Device Ventilator
[2018-11-29 03:24] LABS: ABG HCO3 45.6 MMOL/L (20-26); ABG Oxygen Saturation 98.4 % (95-100); ABG PCO2 47.2 MM HG (35-48); ABG PO2 92.1 MM HG (80-95); ABG TCO2 41.5 MMOL/L (23-27)
[2018-11-29 03:27] LABS: ABG PH 7.597 (7.35-7.45)
[2018-11-29] MEDS: methylPREDNISolone SOD SUC 40 MG/1 ML VIAL IV SCH ×4 (04:09→21:25)
[2018-11-29 04:51] LABS: Hematocrit 32.6 VOL% (35.7-47.0); Hemoglobin 9.9 GM/DL (12.0-16.0); Immature Granulocytes % 0.5 %; Immature Granulocytes Absolute 0.02 #; Lymphocytes # 0.5 10*3/uL (1.4-4.0); Lymphocytes % 10.2 % (21.3-54.2); Mean Corpuscular HGB Conc 30.4 GM/DL (32-36); Mean Corpuscular Volume 91.3 FL (87-102); Mean Platelet Volume 10.6 FL (9.6-12.0); Monocytes % 10.2 % (1.7-12.7); Neutrophils % 79.1 % (38.7-73.9); Platelet Count 207 T/CUMM (130-400); Red Blood Count 3.57 MC/CUMM (3.8-5.5); Red Cell Distribution Width 18.5 % (9.3-17.3); White Blood Count 4.4 T/CUMM (4-12)
[2018-11-29 05:05] LABS: INR 1.3; PT Patient Result 14.6 SECS
[2018-11-29 05:17] LABS: Calcium 8.7 MG/DL (8.5-10.1); Osmolality,Calculated 288.4 MOS/KG (273-304)
[2018-11-29] MEDS: BUDESONIDE 0.5 MG/2 ML NEB RESP TX SCH (07:37)
[2018-11-29] MEDS: LANSOPRAZOLE ODT 30 MG TABLET PO SCH (09:10)
[2018-11-29] MEDS: THEOPHYLLINE ER (24 HR) 400 MG CAPSULE PO SCH ×2 (09:10→09:39)
[2018-11-29] MEDS: CITALOPRAM 40 MG TABLET PO SCH (09:10)
[2018-11-29] MEDS: FUROSEMIDE 40 MG TABLET PO SCH (09:10)
[2018-11-29] MEDS: FAMOTIDINE 20 MG/2 ML VIAL IV SCH ×2 (09:13→20:25)
[2018-11-29] MEDS ORDERED: SODIUM CHLORIDE 0.45% 1,000 ML IV SCH (09:30)
[2018-11-29] MEDS: AMIODARONE 200 MG TABLET PO SCH (09:39)
[2018-11-29] MEDS: BUDESONIDE/FORMOTEROL 160-4.5 INHALER 6 GM INH SCH ×2 (09:40→20:31)
[2018-11-29] MEDS: THEOPHYLLINE 5.33 MG/ML 30 ML/BOTTLE PER TUBE SCH ×3 (10:26→21:27)
[2018-11-29] MEDS: ASPIRIN CHEW 81 MG TABLET PO SCH (11:48)
[2018-11-29] MEDS: ENOXAPARIN 120 MG/0.8 ML SYRINGE SUBCUT SCH (11:54)
[2018-11-29] MEDS: POTASSIUM CHLORIDE RIDER 10 MEQ in PREMIX 1 EACH IV PRN ×3 (11:58→14:49)
[2018-11-29] MEDS ORDERED: FUROSEMIDE 40 MG/4 ML VIAL IV SCH (16:00)
[2018-11-29] MEDS: WARFARIN 2.5 MG TABLET PO SCH (17:14)
[2018-11-29] MEDS: FLUCONAZOLE INJ 200 MG in PREMIX 1 EACH IV SCH (20:26)
[2018-11-29] MEDS: MIRTAZAPINE 30 MG TABLET PO SCH (20:30)
[2018-11-30] MEDS: ENOXAPARIN 120 MG/0.8 ML SYRINGE SUBCUT SCH ×3 (00:15→23:16)
[2018-11-30] MEDS: ALBUTEROL/IPRATROPIUM 3 ML NEB RESP TX SCH ×4 (00:41→19:10)
[2018-11-30] MEDS: MEROPENEM 1,000 MG in SODIUM CHLORIDE 0.9% 100 ML IV SCH ×3 (01:30→17:07)
[2018-11-30] MEDS: PROPOFOL 1,000 MG/100 ML BOTTLE IV SCH ×9 (01:32→23:28)
[2018-11-30 03:46] LABS: ABG Base Excess 14.5 MMOL/L (-2.5-2.5); ABG HCO3 38.4 MMOL/L (20-26); ABG Oxygen Saturation 97.9 % (95-100); ABG PH 7.523 (7.35-7.45); ABG PO2 99.3 MM HG (80-95); ABG TCO2 35.3 MMOL/L (23-27); Allen Test Positive; Pt O2 Delivery Device Ventilator
[2018-11-30] MEDS: methylPREDNISolone SOD SUC 40 MG/1 ML VIAL IV SCH ×4 (04:34→21:36)
[2018-11-30] MEDS: THEOPHYLLINE 5.33 MG/ML 30 ML/BOTTLE PER TUBE SCH ×4 (04:36→21:37)
[2018-11-30 05:42] LABS: Hematocrit 31.5 VOL% (35.7-47.0); Hemoglobin 9.9 GM/DL (12.0-16.0); Immature Granulocytes % 0.6 %; Immature Granulocytes Absolute 0.02 #; Lymphocytes # 0.2 10*3/uL (1.4-4.0); Lymphocytes % 6.9 % (21.3-54.2); Mean Corpuscular HGB Conc 31.4 GM/DL (32-36); Mean Corpuscular Volume 87.5 FL (87-102); Mean Platelet Volume 9.6 FL (9.6-12.0); Monocytes % 8.4 % (1.7-12.7); Neutrophils % 84.1 % (38.7-73.9); Platelet Count 187 T/CUMM (130-400); Red Cell Distribution Width 18.3 % (9.3-17.3); White Blood Count 3.3 T/CUMM (4-12)
[2018-11-30 05:45] LABS: INR 1.1; PT Patient Result 12.2 SECS
[2018-11-30 06:02] LABS: Calcium 8.6 MG/DL (8.5-10.1); Osmolality,Calculated 294.4 MOS/KG (273-304)
[2018-11-30] MEDS: POTASSIUM CHLORIDE RIDER 10 MEQ in PREMIX 1 EACH IV PRN (06:34)
[2018-11-30] MEDS: BUDESONIDE 0.5 MG/2 ML NEB RESP TX SCH ×3 (07:05→19:10)
[2018-11-30] MEDS ORDERED: FUROSEMIDE 40 MG/4 ML VIAL IV SCH (09:00)
[2018-11-30] MEDS: FAMOTIDINE 20 MG/2 ML VIAL IV SCH ×2 (09:18→20:36)
[2018-11-30] MEDS: POTASSIUM CHLORIDE 20 MEQ/15 ML UDCUP PER TUBE PRN ×4 (09:26→17:08)
[2018-11-30] MEDS: CITALOPRAM 40 MG TABLET PO SCH (09:32)
[2018-11-30] MEDS: ASPIRIN CHEW 81 MG TABLET PO SCH (09:32)
[2018-11-30] MEDS: AMIODARONE 200 MG TABLET PO SCH (09:32)
[2018-11-30] MEDS: POTASSIUM CHLORIDE 20 MEQ/15 ML UDCUP PER TUBE SCH ×2 (09:33)
[2018-11-30] MEDS ORDERED: DEXTROSE 50% 25 GM/50 ML VIAL IV PRN (10:13)
[2018-11-30] MEDS ORDERED: GLUCAGON 1 MG VIAL IM PRN (10:13)
[2018-11-30] MEDS: BUDESONIDE/FORMOTEROL 160-4.5 INHALER 6 GM INH SCH ×2 (10:18→20:37)
[2018-11-30] MEDS: INSULIN REGULAR 100 UNIT/ML SUBCUT SCH ×3 (12:04→23:21)
[2018-11-30] MEDS: WARFARIN 5 MG TABLET PO SCH (17:09)
[2018-11-30] MEDS: FLUCONAZOLE INJ 200 MG in PREMIX 1 EACH IV SCH (20:36)
[2018-11-30] MEDS: MIRTAZAPINE 30 MG TABLET PO SCH (20:37)
[2018-12-01] MEDS: POTASSIUM CHLORIDE 20 MEQ/15 ML UDCUP PER TUBE PRN ×4 (00:18→05:50)
[2018-12-01] MEDS: MEROPENEM 1,000 MG in SODIUM CHLORIDE 0.9% 100 ML IV SCH ×3 (00:58→17:23)
[2018-12-01] MEDS: ALBUTEROL/IPRATROPIUM 3 ML NEB RESP TX SCH ×4 (01:15→19:50)
[2018-12-01] MEDS: PROPOFOL 1,000 MG/100 ML BOTTLE IV SCH ×9 (02:28→22:37)
[2018-12-01 03:38] LABS: Pt O2 Delivery Device Ventilator
[2018-12-01] MEDS: THEOPHYLLINE 5.33 MG/ML 30 ML/BOTTLE PER TUBE SCH ×4 (03:38→21:57)
[2018-12-01] MEDS: methylPREDNISolone SOD SUC 40 MG/1 ML VIAL IV SCH ×4 (03:38→21:57)
[2018-12-01 03:39] LABS: ABG Base Excess 11.9 MMOL/L (-2.5-2.5); ABG HCO3 36.3 MMOL/L (20-26); ABG Oxygen Saturation 95.8 % (95-100); ABG PCO2 46.3 MM HG (35-48); ABG PH 7.512 (7.35-7.45); ABG PO2 88.6 MM HG (80-95); ABG TCO2 37.7 MMOL/L (23-27)
[2018-12-01 05:41] LABS: Hematocrit 33.6 VOL% (35.7-47.0); Hemoglobin 10.5 GM/DL (12.0-16.0); Immature Granulocytes % 0.8 %; Immature Granulocytes Absolute 0.03 #; Lymphocytes # 0.2 10*3/uL (1.4-4.0); Lymphocytes % 4.3 % (21.3-54.2); Mean Corpuscular HGB Conc 31.3 GM/DL (32-36); Mean Corpuscular Volume 90.3 FL (87-102); Mean Platelet Volume 10.3 FL (9.6-12.0); Monocytes % 7.5 % (1.7-12.7); Neutrophils % 87.4 % (38.7-73.9); Platelet Count 195 T/CUMM (130-400); Red Blood Count 3.72 MC/CUMM (3.8-5.5); Red Cell Distribution Width 18.6 % (9.3-17.3); White Blood Count 3.7 T/CUMM (4-12)
[2018-12-01] MEDS: INSULIN REGULAR 100 UNIT/ML SUBCUT SCH ×4 (05:49→23:32)
[2018-12-01 05:52] LABS: INR 1.4; PT Patient Result 15.1 SECS
[2018-12-01 05:55] LABS: Calcium 8.1 MG/DL (8.5-10.1); Osmolality,Calculated 295.5 MOS/KG (273-304); Prealbumin 25.4 MG/DL (20-40)
[2018-12-01 06:05] LABS: Anisocytosis 1+; Lymphocytes 3 % (20-55); Segmented Neutrophils 97 % (50-85); Total Cells Counted 100
[2018-12-01 06:06] LABS: Platelet Estimate Adequate
[2018-12-01] MEDS: BUDESONIDE 0.5 MG/2 ML NEB RESP TX SCH ×2 (09:35→19:50)
[2018-12-01] MEDS: ASPIRIN CHEW 81 MG TABLET PO SCH (09:52)
[2018-12-01] MEDS: CITALOPRAM 40 MG TABLET PO SCH (09:52)
[2018-12-01] MEDS: FAMOTIDINE 20 MG/2 ML VIAL IV SCH ×2 (09:53→20:05)
[2018-12-01] MEDS: BUDESONIDE/FORMOTEROL 160-4.5 INHALER 6 GM INH SCH ×2 (09:54→20:06)
[2018-12-01] MEDS: AMIODARONE 200 MG TABLET PO SCH (09:56)
[2018-12-01] MEDS: POTASSIUM CHLORIDE 20 MEQ/15 ML UDCUP PER TUBE SCH (10:17)
[2018-12-01] MEDS: ENOXAPARIN 120 MG/0.8 ML SYRINGE SUBCUT SCH ×2 (12:34→23:20)
[2018-12-01] MEDS: WARFARIN 5 MG TABLET PO SCH (18:20)
[2018-12-01] MEDS: FLUCONAZOLE INJ 200 MG in PREMIX 1 EACH IV SCH (20:03)
[2018-12-01] MEDS: MIRTAZAPINE 30 MG TABLET PO SCH (20:05)
[2018-12-02] MEDS: ALBUTEROL/IPRATROPIUM 3 ML NEB RESP TX SCH ×4 (00:15→19:09)
[2018-12-02] MEDS: MEROPENEM 1,000 MG in SODIUM CHLORIDE 0.9% 100 ML IV SCH ×3 (00:58→17:04)
[2018-12-02] MEDS: PROPOFOL 1,000 MG/100 ML BOTTLE IV SCH ×8 (01:02→22:45)
[2018-12-02] MEDS: methylPREDNISolone SOD SUC 40 MG/1 ML VIAL IV SCH ×4 (03:20→22:10)
[2018-12-02] MEDS: THEOPHYLLINE 5.33 MG/ML 30 ML/BOTTLE PER TUBE SCH ×4 (03:22→22:10)
[2018-12-02 04:00] LABS: ABG Base Excess 7.5 MMOL/L (-2.5-2.5); ABG HCO3 31.3 MMOL/L (20-26); ABG Oxygen Saturation 96.7 % (95-100); ABG PCO2 57.7 MM HG (35-48); ABG PH 7.383 (7.35-7.45); Pt O2 Delivery Device Ventilator
[2018-12-02] MEDS: INSULIN REGULAR 100 UNIT/ML SUBCUT SCH ×4 (05:40→23:46)
[2018-12-02 05:48] LABS: Hemoglobin 10.1 GM/DL (12.0-16.0); Immature Granulocytes % 0.6 %; Immature Granulocytes Absolute 0.02 #; Lymphocytes # 0.1 10*3/uL (1.4-4.0); Lymphocytes % 3.8 % (21.3-54.2); Mean Corpuscular HGB Conc 30.6 GM/DL (32-36); Mean Corpuscular Volume 90.7 FL (87-102); Mean Platelet Volume 10.3 FL (9.6-12.0); Monocytes % 4.1 % (1.7-12.7); Neutrophils % 91.5 % (38.7-73.9); Platelet Count 178 T/CUMM (130-400); Red Blood Count 3.64 MC/CUMM (3.8-5.5); Red Cell Distribution Width 18.7 % (9.3-17.3); White Blood Count 3.4 T/CUMM (4-12)
[2018-12-02 06:01] LABS: INR 1.7; PT Patient Result 18.7 SECS
[2018-12-02 06:15] LABS: Calcium 8.7 MG/DL (8.5-10.1); Osmolality,Calculated 297.4 MOS/KG (273-304)
[2018-12-02 06:25] LABS: Anisocytosis 1+; Eosinophils 1 % (0-10); Lymphocytes 6 % (20-55); Platelet Estimate Adequate; Segmented Neutrophils 88 % (50-85); Total Cells Counted 100
[2018-12-02] MEDS: POTASSIUM CHLORIDE 20 MEQ/15 ML UDCUP PER TUBE PRN (06:37)
[2018-12-02] MEDS: BUDESONIDE 0.5 MG/2 ML NEB RESP TX SCH ×2 (06:57→19:09)
[2018-12-02] MEDS: CITALOPRAM 40 MG TABLET PO SCH (09:02)
[2018-12-02] MEDS: BISACODYL 5 MG TABLET PO SCH (09:02)
[2018-12-02] MEDS: FAMOTIDINE 20 MG/2 ML VIAL IV SCH ×2 (09:02→20:03)
[2018-12-02] MEDS: POLYETHYLENE GLYCOL POWDER 17 GM PACK PO SCH ×2 (09:02→20:03)
[2018-12-02] MEDS: POTASSIUM CHLORIDE 20 MEQ/15 ML UDCUP PER TUBE SCH (09:03)
[2018-12-02] MEDS: BUDESONIDE/FORMOTEROL 160-4.5 INHALER 6 GM INH SCH ×2 (09:03→20:04)
[2018-12-02] MEDS: ASPIRIN CHEW 81 MG TABLET PO SCH (09:03)
[2018-12-02] MEDS: AMIODARONE 200 MG TABLET PO SCH (09:03)
[2018-12-02] MEDS: ENOXAPARIN 120 MG/0.8 ML SYRINGE SUBCUT SCH ×2 (13:24→23:00)
[2018-12-02] MEDS: WARFARIN 5 MG TABLET PO SCH (17:17)
[2018-12-02] MEDS: FLUCONAZOLE INJ 200 MG in PREMIX 1 EACH IV SCH (20:03)
[2018-12-02] MEDS: MIRTAZAPINE 30 MG TABLET PO SCH (20:03)
[2018-12-03] MEDS: ALBUTEROL/IPRATROPIUM 3 ML NEB RESP TX SCH ×4 (00:32→20:01)
[2018-12-03] MEDS: PROPOFOL 1,000 MG/100 ML BOTTLE IV SCH ×9 (00:55→21:15)
[2018-12-03] MEDS: MEROPENEM 1,000 MG in SODIUM CHLORIDE 0.9% 100 ML IV SCH ×3 (01:05→17:28)
[2018-12-03] MEDS: THEOPHYLLINE 5.33 MG/ML 30 ML/BOTTLE PER TUBE SCH ×4 (03:50→21:17)
[2018-12-03] MEDS: methylPREDNISolone SOD SUC 40 MG/1 ML VIAL IV SCH ×4 (03:50→21:14)
[2018-12-03 03:51] LABS: ABG Base Excess 8.2 MMOL/L (-2.5-2.5); ABG Oxygen Saturation 97.9 % (95-100); ABG PCO2 53.2 MM HG (35-48); ABG PH 7.417 (7.35-7.45); Allen Test Positive; Pt O2 Delivery Device Ventilator
[2018-12-03 05:44] LABS: Hematocrit 33.6 VOL% (35.7-47.0); Hemoglobin 10.1 GM/DL (12.0-16.0); Immature Granulocytes % 0.6 %; Immature Granulocytes Absolute 0.02 #; Lymphocytes # 0.2 10*3/uL (1.4-4.0); Lymphocytes % 5.6 % (21.3-54.2); Mean Corpuscular HGB Conc 30.1 GM/DL (32-36); Mean Corpuscular Volume 92.3 FL (87-102); Mean Platelet Volume 10.9 FL (9.6-12.0); Monocytes % 5.3 % (1.7-12.7); Neutrophils % 88.5 % (38.7-73.9); Platelet Count 197 T/CUMM (130-400); Red Blood Count 3.64 MC/CUMM (3.8-5.5); Red Cell Distribution Width 18.6 % (9.3-17.3); White Blood Count 3.6 T/CUMM (4-12)
[2018-12-03 05:46] LABS: INR 2.3
[2018-12-03] MEDS: INSULIN REGULAR 100 UNIT/ML SUBCUT SCH ×3 (05:47→17:28)
[2018-12-03 05:54] LABS: Calcium 8.5 MG/DL (8.5-10.1); Osmolality,Calculated 294.4 MOS/KG (273-304)
[2018-12-03 05:56] LABS: Calcium 8.7 MG/DL (8.5-10.1); Osmolality,Calculated 293.5 MOS/KG (273-304)
[2018-12-03] MEDS: POTASSIUM CHLORIDE 20 MEQ/15 ML UDCUP PER TUBE PRN (06:14)
[2018-12-03 06:29] LABS: PT Patient Result 24.9 SECS
[2018-12-03] MEDS: BUDESONIDE 0.5 MG/2 ML NEB RESP TX SCH ×2 (07:35→20:01)
[2018-12-03] MEDS: POTASSIUM CHLORIDE 20 MEQ/15 ML UDCUP PER TUBE SCH (08:29)
[2018-12-03] MEDS: POLYETHYLENE GLYCOL POWDER 17 GM PACK PO SCH ×2 (08:30→21:14)
[2018-12-03] MEDS: FAMOTIDINE 20 MG/2 ML VIAL IV SCH ×2 (08:30→21:14)
[2018-12-03] MEDS: CITALOPRAM 40 MG TABLET PO SCH (08:30)
[2018-12-03] MEDS: ASPIRIN CHEW 81 MG TABLET PO SCH (08:30)
[2018-12-03] MEDS: BISACODYL 5 MG TABLET PO SCH (08:30)
[2018-12-03] MEDS: BUDESONIDE/FORMOTEROL 160-4.5 INHALER 6 GM INH SCH ×2 (08:52→21:16)
[2018-12-03] MEDS: AMIODARONE 200 MG TABLET PO SCH (08:52)
[2018-12-03] MEDS: WARFARIN 4 MG TABLET PO SCH (17:28)
[2018-12-03] MEDS: MIRTAZAPINE 30 MG TABLET PO SCH (21:14)
[2018-12-03] MEDS: FLUCONAZOLE INJ 200 MG in PREMIX 1 EACH IV SCH (21:15)
[2018-12-04] MEDS: PROPOFOL 1,000 MG/100 ML BOTTLE IV SCH ×10 (00:27→23:15)
[2018-12-04] MEDS: ALBUTEROL/IPRATROPIUM 3 ML NEB RESP TX SCH ×4 (00:55→18:55)
[2018-12-04] MEDS: INSULIN REGULAR 100 UNIT/ML SUBCUT SCH ×4 (00:58→17:22)
[2018-12-04] MEDS: MEROPENEM 1,000 MG in SODIUM CHLORIDE 0.9% 100 ML IV SCH ×3 (00:58→17:21)
[2018-12-04] MEDS: THEOPHYLLINE 5.33 MG/ML 30 ML/BOTTLE PER TUBE SCH ×4 (03:32→23:50)
[2018-12-04] MEDS: methylPREDNISolone SOD SUC 40 MG/1 ML VIAL IV SCH ×4 (03:32→23:50)
[2018-12-04 03:37] LABS: ABG Base Excess 8.3 MMOL/L (-2.5-2.5); ABG Oxygen Saturation 97.1 % (95-100); ABG PCO2 52.5 MM HG (35-48); ABG PH 7.429 (7.35-7.45); ABG TCO2 35.6 MMOL/L (23-27); Allen Test Positive; Pt O2 Delivery Device Ventilator
[2018-12-04 05:55] LABS: Hematocrit 32.9 VOL% (35.7-47.0); Immature Granulocytes % 1.3 %; Immature Granulocytes Absolute 0.06 #; Lymphocytes # 0.2 10*3/uL (1.4-4.0); Lymphocytes % 4.7 % (21.3-54.2); Mean Corpuscular HGB Conc 30.4 GM/DL (32-36); Mean Corpuscular Volume 91.4 FL (87-102); Monocytes % 3.8 % (1.7-12.7); Neutrophils % 90.2 % (38.7-73.9); Platelet Count 204 T/CUMM (130-400); Red Cell Distribution Width 18.3 % (9.3-17.3); White Blood Count 4.7 T/CUMM (4-12)
[2018-12-04 06:01] LABS: INR 2.2
[2018-12-04 06:03] LABS: Calcium 8.4 MG/DL (8.5-10.1); Osmolality,Calculated 291.4 MOS/KG (273-304); PT Patient Result 24.2 SECS
[2018-12-04 06:18] LABS: Hypochromasia 1+; Lymphocytes 8 % (20-55); Platelet Estimate Adequate; Segmented Neutrophils 87 % (50-85); Total Cells Counted 100
[2018-12-04] MEDS: BUDESONIDE 0.5 MG/2 ML NEB RESP TX SCH ×2 (07:43→18:55)
[2018-12-04] MEDS: BISACODYL 5 MG TABLET PO SCH (09:20)
[2018-12-04] MEDS: MULTIVITAMIN LIQUID (CENTRUM) 60 ML BOTTLE PER TUBE SCH (09:20)
[2018-12-04] MEDS: CITALOPRAM 40 MG TABLET PO SCH (09:20)
[2018-12-04] MEDS: POLYETHYLENE GLYCOL POWDER 17 GM PACK PO SCH ×2 (09:20→21:56)
[2018-12-04] MEDS: ASPIRIN CHEW 81 MG TABLET PO SCH (09:20)
[2018-12-04] MEDS: AMIODARONE 200 MG TABLET PO SCH (09:21)
[2018-12-04] MEDS: FAMOTIDINE 20 MG/2 ML VIAL IV SCH ×2 (09:21→21:55)
[2018-12-04] MEDS: BUDESONIDE/FORMOTEROL 160-4.5 INHALER 6 GM INH SCH ×2 (09:21→21:00)
[2018-12-04] MEDS: POTASSIUM CHLORIDE 20 MEQ/15 ML UDCUP PER TUBE SCH (09:22)
[2018-12-04] MEDS: WARFARIN 4 MG TABLET PO SCH (17:22)
[2018-12-04] MEDS: FLUCONAZOLE INJ 200 MG in PREMIX 1 EACH IV SCH (20:25)
[2018-12-04] MEDS: MIRTAZAPINE 30 MG TABLET PO SCH (21:56)
[2018-12-05] MEDS: INSULIN REGULAR 100 UNIT/ML SUBCUT SCH ×4 (00:36→17:54)
[2018-12-05] MEDS: ALBUTEROL/IPRATROPIUM 3 ML NEB RESP TX SCH ×4 (00:47→19:20)
[2018-12-05] MEDS: MEROPENEM 1,000 MG in SODIUM CHLORIDE 0.9% 100 ML IV SCH ×3 (01:40→16:47)
[2018-12-05] MEDS: PROPOFOL 1,000 MG/100 ML BOTTLE IV SCH ×4 (01:40→09:32)
[2018-12-05 03:50] LABS: ABG Base Excess 9.1 MMOL/L (-2.5-2.5); ABG HCO3 32.9 MMOL/L (20-26); ABG Oxygen Saturation 97.1 % (95-100); ABG PCO2 48.8 MM HG (35-48); ABG PH 7.456 (7.35-7.45); Allen Test Positive; Pt O2 Delivery Device Ventilator
[2018-12-05] MEDS: THEOPHYLLINE 5.33 MG/ML 30 ML/BOTTLE PER TUBE SCH ×4 (04:32→22:28)
[2018-12-05] MEDS: methylPREDNISolone SOD SUC 40 MG/1 ML VIAL IV SCH (05:25)
[2018-12-05 05:46] LABS: Basophils % 0.2 % (0.0-0.8); Hematocrit 33.4 VOL% (35.7-47.0); Hemoglobin 10.5 GM/DL (12.0-16.0); Immature Granulocytes % 1.3 %; Immature Granulocytes Absolute 0.06 #; Lymphocytes # 0.2 10*3/uL (1.4-4.0); Lymphocytes % 5.2 % (21.3-54.2); Mean Corpuscular HGB Conc 31.4 GM/DL (32-36); Mean Corpuscular Volume 89.8 FL (87-102); Mean Platelet Volume 11.6 FL (9.6-12.0); Monocytes % 4.3 % (1.7-12.7); Platelet Count 201 T/CUMM (130-400); Red Blood Count 3.72 MC/CUMM (3.8-5.5); Red Cell Distribution Width 18.3 % (9.3-17.3); White Blood Count 4.6 T/CUMM (4-12)
[2018-12-05 05:49] LABS: INR 2.9
[2018-12-05 06:13] LABS: Calcium 8.8 MG/DL (8.5-10.1); Osmolality,Calculated 291.4 MOS/KG (273-304)
[2018-12-05] MEDS: BUDESONIDE 0.5 MG/2 ML NEB RESP TX SCH ×2 (07:34→19:21)
[2018-12-05] MEDS: methylPREDNISolone SOD SUC 125 MG/2 ML VIAL IV SCH ×2 (09:26→20:55)
[2018-12-05] MEDS: FAMOTIDINE 20 MG/2 ML VIAL IV SCH ×2 (09:34→22:25)
[2018-12-05] MEDS: CITALOPRAM 40 MG TABLET PO SCH (09:37)
[2018-12-05] MEDS: BISACODYL 5 MG TABLET PO SCH (09:37)
[2018-12-05] MEDS: ASPIRIN CHEW 81 MG TABLET PO SCH (09:37)
[2018-12-05] MEDS: MULTIVITAMIN LIQUID (CENTRUM) 60 ML BOTTLE PER TUBE SCH (09:38)
[2018-12-05] MEDS: BUDESONIDE/FORMOTEROL 160-4.5 INHALER 6 GM INH SCH ×2 (09:38→21:03)
[2018-12-05] MEDS: POLYETHYLENE GLYCOL POWDER 17 GM PACK PO SCH ×2 (09:38→22:27)
[2018-12-05] MEDS: POTASSIUM CHLORIDE 20 MEQ/15 ML UDCUP PER TUBE SCH (09:40)
[2018-12-05] MEDS: AMIODARONE 200 MG TABLET PO SCH (11:58)
[2018-12-05] MEDS: WARFARIN 3 MG TABLET PO SCH (18:07)
[2018-12-05] MEDS: FLUCONAZOLE INJ 200 MG in PREMIX 1 EACH IV SCH (20:55)
[2018-12-05] MEDS: DESITIN 4OZ/NYSTATIN 15 GRAM MIXTURE PASTE TOP SCH (21:03)
[2018-12-05] MEDS: MIRTAZAPINE 30 MG TABLET PO SCH (22:28)
[2018-12-06] MEDS: ALBUTEROL/IPRATROPIUM 3 ML NEB RESP TX SCH ×4 (00:42→20:37)
[2018-12-06] MEDS: PROPOFOL 1,000 MG/100 ML BOTTLE IV SCH ×3 (01:05→06:45)
[2018-12-06] MEDS: MEROPENEM 1,000 MG in SODIUM CHLORIDE 0.9% 100 ML IV SCH (02:05)
[2018-12-06] MEDS: INSULIN REGULAR 100 UNIT/ML SUBCUT SCH ×4 (02:08→20:55)
[2018-12-06 03:57] LABS: ABG Base Excess 9.9 MMOL/L (-2.5-2.5); ABG HCO3 33.6 MMOL/L (20-26); ABG Oxygen Saturation 96.6 % (95-100); ABG PCO2 41.5 MM HG (35-48); ABG PH 7.526 (7.35-7.45); ABG PO2 86.2 MM HG (80-95); ABG TCO2 34.9 MMOL/L (23-27); Allen Test Positive; Pt O2 Delivery Device Ventilator
[2018-12-06] MEDS: THEOPHYLLINE 5.33 MG/ML 30 ML/BOTTLE PER TUBE SCH ×4 (04:16→21:21)
[2018-12-06 05:44] LABS: Hematocrit 32.2 VOL% (35.7-47.0); Hemoglobin 10.1 GM/DL (12.0-16.0); Immature Granulocytes % 0.9 %; Immature Granulocytes Absolute 0.05 #; Lymphocytes # 0.4 10*3/uL (1.4-4.0); Lymphocytes % 8.3 % (21.3-54.2); Mean Corpuscular HGB Conc 31.4 GM/DL (32-36); Mean Corpuscular Volume 88.2 FL (87-102); Mean Platelet Volume 10.9 FL (9.6-12.0); Monocytes % 8.2 % (1.7-12.7); Neutrophils % 82.6 % (38.7-73.9); Platelet Count 215 T/CUMM (130-400); Red Blood Count 3.65 MC/CUMM (3.8-5.5); Red Cell Distribution Width 18.1 % (9.3-17.3); White Blood Count 5.3 T/CUMM (4-12)
[2018-12-06 05:54] LABS: INR 2.9
[2018-12-06 06:04] LABS: PT Patient Result 31.5 SECS
[2018-12-06 06:27] LABS: Calcium 8.5 MG/DL (8.5-10.1); Osmolality,Calculated 289.4 MOS/KG (273-304)
[2018-12-06 06:32] LABS: Prealbumin 33.1 MG/DL (20-40)
[2018-12-06] MEDS: BUDESONIDE 0.5 MG/2 ML NEB RESP TX SCH ×2 (06:58→20:37)
[2018-12-06] MEDS: methylPREDNISolone SOD SUC 125 MG/2 ML VIAL IV SCH ×2 (08:46→21:07)
[2018-12-06] MEDS: FAMOTIDINE 20 MG/2 ML VIAL IV SCH ×2 (08:49→21:09)
[2018-12-06] MEDS: MULTIVITAMIN LIQUID (CENTRUM) 60 ML BOTTLE PER TUBE SCH (08:51)
[2018-12-06] MEDS: POTASSIUM CHLORIDE 20 MEQ/15 ML UDCUP PER TUBE SCH (08:51)
[2018-12-06] MEDS: CITALOPRAM 40 MG TABLET PO SCH (08:51)
[2018-12-06] MEDS: ASPIRIN CHEW 81 MG TABLET PO SCH (08:51)
[2018-12-06] MEDS: DESITIN 4OZ/NYSTATIN 15 GRAM MIXTURE PASTE TOP SCH ×2 (08:53→21:11)
[2018-12-06] MEDS: BUDESONIDE/FORMOTEROL 160-4.5 INHALER 6 GM INH SCH ×2 (08:53→21:11)
[2018-12-06] MEDS: AMIODARONE 200 MG TABLET PO SCH (09:00)
[2018-12-06] MEDS: BISACODYL 5 MG TABLET PO SCH (09:31)
[2018-12-06] MEDS: POLYETHYLENE GLYCOL POWDER 17 GM PACK PO SCH (09:31)
[2018-12-06] MEDS ORDERED: POLYETHYLENE GLYCOL POWDER 17 GM PACK PO PRN (09:33)
[2018-12-06] MEDS ORDERED: BISACODYL 5 MG TABLET PO PRN (09:33)
[2018-12-06] MEDS ORDERED: AMIODARONE 200 MG TABLET PO ONE (14:17)
[2018-12-06] MEDS: WARFARIN 3 MG TABLET PO SCH (18:19)
[2018-12-06] MEDS: MIRTAZAPINE 30 MG TABLET PO SCH (21:05)
[2018-12-07] MEDS: ALBUTEROL/IPRATROPIUM 3 ML NEB RESP TX SCH ×4 (01:47→19:15)
[2018-12-07 03:22] LABS: ABG Base Excess 9.7 MMOL/L (-2.5-2.5); ABG HCO3 33.4 MMOL/L (20-26); ABG PCO2 60.4 MM HG (35-48); ABG PH 7.393 (7.35-7.45); ABG PO2 68.5 MM HG (80-95); ABG TCO2 33.2 MMOL/L (23-27)
[2018-12-07] MEDS: THEOPHYLLINE 5.33 MG/ML 30 ML/BOTTLE PER TUBE SCH ×4 (04:02→21:22)
[2018-12-07 04:58] LABS: Hematocrit 33.7 VOL% (35.7-47.0); Hemoglobin 10.3 GM/DL (12.0-16.0); Immature Granulocytes % 1.4 %; Immature Granulocytes Absolute 0.08 #; Lymphocytes # 0.4 10*3/uL (1.4-4.0); Lymphocytes % 6.2 % (21.3-54.2); Mean Corpuscular HGB Conc 30.6 GM/DL (32-36); Mean Corpuscular Volume 89.9 FL (87-102); Mean Platelet Volume 10.8 FL (9.6-12.0); Monocytes % 5.9 % (1.7-12.7); Neutrophils % 86.5 % (38.7-73.9); Platelet Count 207 T/CUMM (130-400); Red Blood Count 3.75 MC/CUMM (3.8-5.5); Red Cell Distribution Width 18.1 % (9.3-17.3); White Blood Count 5.8 T/CUMM (4-12)
[2018-12-07 05:17] LABS: Calcium 8.4 MG/DL (8.5-10.1)
[2018-12-07] MEDS: INSULIN REGULAR 100 UNIT/ML SUBCUT SCH ×4 (06:32→21:19)
[2018-12-07] MEDS: BUDESONIDE 0.5 MG/2 ML NEB RESP TX SCH ×2 (07:04→19:15)
[2018-12-07] MEDS: CITALOPRAM 40 MG TABLET PO SCH (09:05)
[2018-12-07] MEDS: FAMOTIDINE 20 MG/2 ML VIAL IV SCH (09:05)
[2018-12-07] MEDS: ASPIRIN CHEW 81 MG TABLET PO SCH (09:05)
[2018-12-07] MEDS: methylPREDNISolone SOD SUC 125 MG/2 ML VIAL IV SCH (09:05)
[2018-12-07] MEDS: DESITIN 4OZ/NYSTATIN 15 GRAM MIXTURE PASTE TOP SCH ×2 (09:06→21:20)
[2018-12-07] MEDS: BUDESONIDE/FORMOTEROL 160-4.5 INHALER 6 GM INH SCH ×2 (09:07→23:16)
[2018-12-07] MEDS: POTASSIUM CHLORIDE 20 MEQ/15 ML UDCUP PER TUBE SCH (09:07)
[2018-12-07] MEDS: AMIODARONE 200 MG TABLET PO SCH ×2 (09:07→13:19)
[2018-12-07] MEDS: MULTIVITAMIN LIQUID (CENTRUM) 60 ML BOTTLE PER TUBE SCH (09:07)
[2018-12-07] MEDS: methylPREDNISolone SOD SUC 40 MG/1 ML VIAL IV SCH ×2 (11:50→23:16)
[2018-12-07] MEDS: WARFARIN 3 MG TABLET PO SCH (17:38)
[2018-12-07] MEDS: FAMOTIDINE 20 MG TABLET PO SCH (21:19)
[2018-12-07] MEDS: MIRTAZAPINE 30 MG TABLET PO SCH (21:19)
[2018-12-08] MEDS: ALBUTEROL/IPRATROPIUM 3 ML NEB RESP TX SCH ×4 (00:50→18:45)
[2018-12-08] MEDS: THEOPHYLLINE 5.33 MG/ML 30 ML/BOTTLE PER TUBE SCH ×4 (04:11→22:27)
[2018-12-08 05:28] LABS: Basophils % 0.1 % (0.0-0.8); Hematocrit 33.8 VOL% (35.7-47.0); Immature Granulocytes % 1.2 %; Lymphocytes # 0.4 10*3/uL (1.4-4.0); Lymphocytes % 4.6 % (21.3-54.2); Mean Corpuscular HGB Conc 29.6 GM/DL (32-36); Mean Corpuscular Volume 92.6 FL (87-102); Mean Platelet Volume 10.7 FL (9.6-12.0); Monocytes % 5.2 % (1.7-12.7); Neutrophils % 88.9 % (38.7-73.9); Platelet Count 232 T/CUMM (130-400); Red Blood Count 3.65 MC/CUMM (3.8-5.5); Red Cell Distribution Width 18.3 % (9.3-17.3); White Blood Count 8.2 T/CUMM (4-12)
[2018-12-08 05:38] LABS: INR 4.3
[2018-12-08 05:42] LABS: Calcium 8.2 MG/DL (8.5-10.1); Osmolality,Calculated 292.3 MOS/KG (273-304)
[2018-12-08 05:46] LABS: PT Patient Result 46.4 SECS
[2018-12-08 06:23] LABS: Anisocytosis 1+; Lymphocytes 6 % (20-55); Microcytosis 1+; Segmented Neutrophils 90 % (50-85); Total Cells Counted 100
[2018-12-08 06:29] LABS: Platelet Estimate Adequate
[2018-12-08] MEDS: BUDESONIDE 0.5 MG/2 ML NEB RESP TX SCH ×2 (07:15→18:45)
[2018-12-08] MEDS: INSULIN REGULAR 100 UNIT/ML SUBCUT SCH ×4 (07:31→23:46)
[2018-12-08] MEDS: AMIODARONE 200 MG TABLET PO SCH (08:37)
[2018-12-08] MEDS: POTASSIUM CHLORIDE 20 MEQ/15 ML UDCUP PER TUBE SCH (08:37)
[2018-12-08] MEDS: ASPIRIN CHEW 81 MG TABLET PO SCH (08:37)
[2018-12-08] MEDS: FAMOTIDINE 20 MG TABLET PO SCH ×2 (08:37→20:43)
[2018-12-08] MEDS: CITALOPRAM 40 MG TABLET PO SCH (08:37)
[2018-12-08] MEDS: DESITIN 4OZ/NYSTATIN 15 GRAM MIXTURE PASTE TOP SCH ×2 (08:38→20:48)
[2018-12-08] MEDS: MULTIVITAMIN LIQUID (CENTRUM) 60 ML BOTTLE PER TUBE SCH (08:40)
[2018-12-08] MEDS: BUDESONIDE/FORMOTEROL 160-4.5 INHALER 6 GM INH SCH ×2 (08:40→20:48)
[2018-12-08] MEDS: methylPREDNISolone SOD SUC 40 MG/1 ML VIAL IV SCH (12:29)
[2018-12-08] MEDS: CALCIUM CARBONATE CHEW 500 MG TABLET PO SCH ×2 (17:26→20:43)
[2018-12-08] MEDS: MIRTAZAPINE 30 MG TABLET PO SCH (20:43)
[2018-12-08] MEDS: diphenhydrAMINE CAP 25 MG CAPSULE PO SCH (20:43)
[2018-12-09] MEDS: methylPREDNISolone SOD SUC 40 MG/1 ML VIAL IV SCH ×3 (00:08→22:45)
[2018-12-09] MEDS: ALBUTEROL/IPRATROPIUM 3 ML NEB RESP TX SCH ×4 (01:09→18:50)
[2018-12-09] MEDS: THEOPHYLLINE 5.33 MG/ML 30 ML/BOTTLE PER TUBE SCH ×4 (05:09→22:44)
[2018-12-09 05:12] LABS: INR 3.9
[2018-12-09 05:15] LABS: Basophils % 0.2 % (0.0-0.8); Hematocrit 33.9 VOL% (35.7-47.0); Hemoglobin 10.3 GM/DL (12.0-16.0); Immature Granulocytes % 1.7 %; Lymphocytes # 0.5 10*3/uL (1.4-4.0); Mean Corpuscular HGB Conc 30.4 GM/DL (32-36); Mean Corpuscular Volume 91.6 FL (87-102); Mean Platelet Volume 11.1 FL (9.6-12.0); Monocytes % 4.2 % (1.7-12.7); Neutrophils % 85.9 % (38.7-73.9); Platelet Count 229 T/CUMM (130-400); Red Cell Distribution Width 18.5 % (9.3-17.3); White Blood Count 5.8 T/CUMM (4-12)
[2018-12-09 05:24] LABS: PT Patient Result 41.8 SECS
[2018-12-09 05:28] LABS: Calcium 8.4 MG/DL (8.5-10.1); Osmolality,Calculated 293.8 MOS/KG (273-304)
[2018-12-09] MEDS: BUDESONIDE 0.5 MG/2 ML NEB RESP TX SCH ×2 (07:03→18:50)
[2018-12-09] MEDS: CITALOPRAM 40 MG TABLET PO SCH (08:35)
[2018-12-09] MEDS: INSULIN REGULAR 100 UNIT/ML SUBCUT SCH ×4 (08:35→22:44)
[2018-12-09] MEDS: ASPIRIN CHEW 81 MG TABLET PO SCH (08:35)
[2018-12-09] MEDS: CALCIUM CARBONATE CHEW 500 MG TABLET PO SCH ×2 (08:35→22:43)
[2018-12-09] MEDS: POTASSIUM CHLORIDE 20 MEQ/15 ML UDCUP PER TUBE SCH (08:36)
[2018-12-09] MEDS: DESITIN 4OZ/NYSTATIN 15 GRAM MIXTURE PASTE TOP SCH ×2 (08:36→22:46)
[2018-12-09] MEDS: BUDESONIDE/FORMOTEROL 160-4.5 INHALER 6 GM INH SCH ×2 (08:36→22:45)
[2018-12-09] MEDS: AMIODARONE 200 MG TABLET PO SCH (08:36)
[2018-12-09] MEDS: FAMOTIDINE 20 MG TABLET PO SCH ×2 (08:36→22:43)
[2018-12-09] MEDS: MULTIVITAMIN LIQUID (CENTRUM) 60 ML BOTTLE PER TUBE SCH (09:59)
[2018-12-09] MEDS: diphenhydrAMINE CAP 25 MG CAPSULE PO SCH (22:43)
[2018-12-09] MEDS: MIRTAZAPINE 30 MG TABLET PO SCH (22:44)
[2018-12-10] MEDS: ALBUTEROL/IPRATROPIUM 3 ML NEB RESP TX SCH ×4 (00:31→19:33)
[2018-12-10] MEDS: THEOPHYLLINE 5.33 MG/ML 30 ML/BOTTLE PER TUBE SCH ×5 (05:38→21:57)
[2018-12-10 05:50] LABS: Basophils % 0.2 % (0.0-0.8); Hematocrit 31.8 VOL% (35.7-47.0); Hemoglobin 9.7 GM/DL (12.0-16.0); Immature Granulocytes % 1.8 %; Immature Granulocytes Absolute 0.11 #; Lymphocytes # 0.5 10*3/uL (1.4-4.0); Lymphocytes % 8.3 % (21.3-54.2); Mean Corpuscular HGB Conc 30.5 GM/DL (32-36); Mean Corpuscular Volume 89.8 FL (87-102); Mean Platelet Volume 10.8 FL (9.6-12.0); Monocytes % 3.4 % (1.7-12.7); Neutrophils % 86.3 % (38.7-73.9); Platelet Count 205 T/CUMM (130-400); Red Blood Count 3.54 MC/CUMM (3.8-5.5); Red Cell Distribution Width 18.3 % (9.3-17.3); White Blood Count 6.2 T/CUMM (4-12)
[2018-12-10 05:52] LABS: INR 2.4
[2018-12-10 05:58] LABS: PT Patient Result 25.4 SECS
[2018-12-10 06:09] LABS: Albumin 2.3 G/DL (3.4-5.0); Bilirubin,Total 0.6 MG/DL (0.2-1.0); Calcium 8.3 MG/DL (8.5-10.1); Total Protein 5.2 G/DL (6.4-8.3)
[2018-12-10] MEDS: BUDESONIDE 0.5 MG/2 ML NEB RESP TX SCH ×2 (06:58→19:33)
[2018-12-10] MEDS: CALCIUM CARBONATE CHEW 500 MG TABLET PO SCH ×2 (09:44→21:55)
[2018-12-10] MEDS: ASPIRIN CHEW 81 MG TABLET PO SCH (09:45)
[2018-12-10] MEDS: AMIODARONE 200 MG TABLET PO SCH (09:45)
[2018-12-10] MEDS: CITALOPRAM 40 MG TABLET PO SCH (09:45)
[2018-12-10] MEDS: FAMOTIDINE 20 MG TABLET PO SCH ×2 (09:45→21:56)
[2018-12-10] MEDS: INSULIN REGULAR 100 UNIT/ML SUBCUT SCH ×4 (09:46→22:27)
[2018-12-10] MEDS: methylPREDNISolone SOD SUC 40 MG/1 ML VIAL IV SCH ×2 (09:46→21:59)
[2018-12-10] MEDS: POTASSIUM CHLORIDE 20 MEQ/15 ML UDCUP PER TUBE SCH (09:46)
[2018-12-10] MEDS: DESITIN 4OZ/NYSTATIN 15 GRAM MIXTURE PASTE TOP SCH ×2 (09:47→22:03)
[2018-12-10] MEDS: BUDESONIDE/FORMOTEROL 160-4.5 INHALER 6 GM INH SCH ×2 (09:48→22:32)
[2018-12-10] MEDS: MULTIVITAMIN LIQUID (CENTRUM) 60 ML BOTTLE PER TUBE SCH (09:48)
[2018-12-10] MEDS: WARFARIN 3 MG TABLET PO SCH (18:42)
[2018-12-10] MEDS: MIRTAZAPINE 30 MG TABLET PO SCH (21:56)
[2018-12-10] MEDS: diphenhydrAMINE CAP 25 MG CAPSULE PO SCH (21:56)
[2018-12-11] MEDS: ALBUTEROL/IPRATROPIUM 3 ML NEB RESP TX SCH ×4 (00:02→19:04)
[2018-12-11] MEDS: THEOPHYLLINE 5.33 MG/ML 30 ML/BOTTLE PER TUBE SCH ×4 (04:11→21:31)
[2018-12-11 05:13] LABS: Hemoglobin 10.6 GM/DL (12.0-16.0); Immature Granulocytes % 1.6 %; Immature Granulocytes Absolute 0.12 #; Lymphocytes # 0.5 10*3/uL (1.4-4.0); Lymphocytes % 6.4 % (21.3-54.2); Mean Corpuscular HGB Conc 31.2 GM/DL (32-36); Mean Corpuscular Volume 89.9 FL (87-102); Mean Platelet Volume 10.7 FL (9.6-12.0); Monocytes % 2.3 % (1.7-12.7); Neutrophils % 89.7 % (38.7-73.9); Platelet Count 214 T/CUMM (130-400); Red Blood Count 3.78 MC/CUMM (3.8-5.5); Red Cell Distribution Width 18.5 % (9.3-17.3); White Blood Count 7.5 T/CUMM (4-12)
[2018-12-11 05:24] LABS: INR 1.5; PT Patient Result 16.7 SECS
[2018-12-11 05:41] LABS: Alanine Aminotransferase 15 U/L (13-56); Albumin 2.5 G/DL (3.4-5.0); Alkaline Phosphatase 74 U/L (45-117); Aspartate Amino Transferase 11 U/L (0-37); Bilirubin,Total < 0.39 MG/DL (0.2-1.0); Blood Urea Nitrogen 26 MG/DL (7-18); Calcium 8.4 MG/DL (8.5-10.1); Glucose 157 MG/DL (74-106); Osmolality,Calculated 295.7 MOS/KG (273-304); Total Protein 5.6 G/DL (6.4-8.3)
[2018-12-11] MEDS: BUDESONIDE 0.5 MG/2 ML NEB RESP TX SCH ×2 (07:16→19:04)
[2018-12-11] MEDS: INSULIN REGULAR 100 UNIT/ML SUBCUT SCH ×4 (08:55→21:36)
[2018-12-11] MEDS ORDERED: CIPROFLOXACIN 500 MG TABLET PO SCH (09:00)
[2018-12-11] MEDS: CALCIUM CARBONATE CHEW 500 MG TABLET PO SCH ×2 (10:01→21:30)
[2018-12-11] MEDS: methylPREDNISolone SOD SUC 40 MG/1 ML VIAL IV SCH (10:01)
[2018-12-11] MEDS: CITALOPRAM 40 MG TABLET PO SCH (10:01)
[2018-12-11] MEDS: POTASSIUM CHLORIDE 20 MEQ/15 ML UDCUP PER TUBE SCH (10:01)
[2018-12-11] MEDS: AMIODARONE 200 MG TABLET PO SCH (10:02)
[2018-12-11] MEDS: MULTIVITAMIN LIQUID (CENTRUM) 60 ML BOTTLE PER TUBE SCH (10:02)
[2018-12-11] MEDS: FAMOTIDINE 20 MG TABLET PO SCH ×2 (10:02→21:30)
[2018-12-11] MEDS: ASPIRIN CHEW 81 MG TABLET PO SCH (10:02)
[2018-12-11] MEDS: DESITIN 4OZ/NYSTATIN 15 GRAM MIXTURE PASTE TOP SCH ×2 (10:03→21:31)
[2018-12-11] MEDS: BUDESONIDE/FORMOTEROL 160-4.5 INHALER 6 GM INH SCH ×2 (10:03→21:31)
[2018-12-11] MEDS: WARFARIN 3 MG TABLET PO SCH (18:50)
[2018-12-11] MEDS: diphenhydrAMINE CAP 25 MG CAPSULE PO SCH (21:30)
[2018-12-11] MEDS: MIRTAZAPINE 30 MG TABLET PO SCH (21:30)
[2018-12-12] MEDS: ALBUTEROL/IPRATROPIUM 3 ML NEB RESP TX SCH ×4 (00:16→19:17)
[2018-12-12] MEDS: THEOPHYLLINE 5.33 MG/ML 30 ML/BOTTLE PER TUBE SCH ×4 (04:41→21:35)
[2018-12-12] MEDS: BUDESONIDE 0.5 MG/2 ML NEB RESP TX SCH ×2 (07:36→19:17)
[2018-12-12] MEDS: INSULIN REGULAR 100 UNIT/ML SUBCUT SCH ×4 (07:59→21:42)
[2018-12-12] MEDS: CALCIUM CARBONATE CHEW 500 MG TABLET PO SCH ×2 (09:12→21:34)
[2018-12-12] MEDS: AMIODARONE 200 MG TABLET PO SCH (09:12)
[2018-12-12] MEDS: FAMOTIDINE 20 MG TABLET PO SCH ×2 (09:12→21:35)
[2018-12-12] MEDS: CITALOPRAM 40 MG TABLET PO SCH (09:12)
[2018-12-12] MEDS: POTASSIUM CHLORIDE 20 MEQ/15 ML UDCUP PER TUBE SCH (09:12)
[2018-12-12] MEDS: ASPIRIN CHEW 81 MG TABLET PO SCH (09:12)
[2018-12-12] MEDS: predniSONE 20 MG TABLET PO SCH (09:12)
[2018-12-12] MEDS: BUDESONIDE/FORMOTEROL 160-4.5 INHALER 6 GM INH SCH ×2 (09:14→21:35)
[2018-12-12] MEDS: DESITIN 4OZ/NYSTATIN 15 GRAM MIXTURE PASTE TOP SCH ×2 (09:14→21:35)
[2018-12-12] MEDS: MULTIVITAMIN LIQUID (CENTRUM) 60 ML BOTTLE PER TUBE SCH (09:14)
[2018-12-12] MEDS: WARFARIN 3 MG TABLET PO SCH (18:02)
[2018-12-12] MEDS: diphenhydrAMINE CAP 25 MG CAPSULE PO SCH (21:34)
[2018-12-12] MEDS: MIRTAZAPINE 30 MG TABLET PO SCH (21:35)
[2018-12-13] MEDS: ALBUTEROL/IPRATROPIUM 3 ML NEB RESP TX SCH ×4 (01:36→19:52)
[2018-12-13] MEDS: THEOPHYLLINE 5.33 MG/ML 30 ML/BOTTLE PER TUBE SCH ×4 (03:41→21:52)
[2018-12-13 05:53] LABS: INR 1.7; PT Patient Result 18.3 SECS
[2018-12-13 06:07] LABS: Basophils % 0.1 % (0.0-0.8); Eosinophils # 0.1 10*3/uL (0.0-0.87); Eosinophils % 1.8 % (0.00-10.9); Hematocrit 31.5 VOL% (35.7-47.0); Hemoglobin 9.8 GM/DL (12.0-16.0); Immature Granulocytes % 1.2 %; Immature Granulocytes Absolute 0.08 #; Lymphocytes # 1.5 10*3/uL (1.4-4.0); Lymphocytes % 21.5 % (21.3-54.2); Mean Corpuscular HGB Conc 31.1 GM/DL (32-36); Mean Corpuscular Volume 90.3 FL (87-102); Mean Platelet Volume 10.6 FL (9.6-12.0); Monocytes % 5.6 % (1.7-12.7); Neutrophils % 69.8 % (38.7-73.9); Platelet Count 163 T/CUMM (130-400); Red Blood Count 3.49 MC/CUMM (3.8-5.5); Red Cell Distribution Width 18.6 % (9.3-17.3); White Blood Count 6.8 T/CUMM (4-12)
[2018-12-13 06:08] LABS: Calcium 8.2 MG/DL (8.5-10.1); Osmolality,Calculated 285.1 MOS/KG (273-304)
[2018-12-13] MEDS: BUDESONIDE 0.5 MG/2 ML NEB RESP TX SCH ×2 (07:19→19:52)
[2018-12-13] MEDS: INSULIN REGULAR 100 UNIT/ML SUBCUT SCH ×4 (08:50→21:51)
[2018-12-13] MEDS: FAMOTIDINE 20 MG TABLET PO SCH ×2 (08:52→21:50)
[2018-12-13] MEDS: ASPIRIN CHEW 81 MG TABLET PO SCH (08:52)
[2018-12-13] MEDS: AMIODARONE 200 MG TABLET PO SCH (08:53)
[2018-12-13] MEDS: CALCIUM CARBONATE CHEW 500 MG TABLET PO SCH ×2 (08:53→21:50)
[2018-12-13] MEDS: POTASSIUM CHLORIDE 20 MEQ/15 ML UDCUP PER TUBE SCH (08:54)
[2018-12-13] MEDS: CITALOPRAM 40 MG TABLET PO SCH (08:54)
[2018-12-13] MEDS: predniSONE 20 MG TABLET PO SCH (08:54)
[2018-12-13] MEDS: MULTIVITAMIN LIQUID (CENTRUM) 60 ML BOTTLE PER TUBE SCH (08:55)
[2018-12-13] MEDS: DESITIN 4OZ/NYSTATIN 15 GRAM MIXTURE PASTE TOP SCH ×2 (08:55→21:52)
[2018-12-13] MEDS: BUDESONIDE/FORMOTEROL 160-4.5 INHALER 6 GM INH SCH ×2 (08:55→21:52)
[2018-12-13] MEDS ORDERED: WARFARIN 4 MG TABLET PO SCH (18:00)
[2018-12-13] MEDS: MIRTAZAPINE 30 MG TABLET PO SCH (21:50)
[2018-12-13] MEDS: diphenhydrAMINE CAP 25 MG CAPSULE PO SCH (21:51)
[2018-12-14] MEDS: ALBUTEROL/IPRATROPIUM 3 ML NEB RESP TX SCH ×4 (01:12→20:46)
[2018-12-14] MEDS: THEOPHYLLINE 5.33 MG/ML 30 ML/BOTTLE PER TUBE SCH ×4 (03:15→20:49)
[2018-12-14 05:17] LABS: Eosinophils # 0.1 10*3/uL (0.0-0.87); Eosinophils % 1.9 % (0.00-10.9); Hematocrit 31.2 VOL% (35.7-47.0); Hemoglobin 9.8 GM/DL (12.0-16.0); Immature Granulocytes Absolute 0.06 #; Lymphocytes # 1.2 10*3/uL (1.4-4.0); Lymphocytes % 20.1 % (21.3-54.2); Mean Corpuscular HGB Conc 31.4 GM/DL (32-36); Mean Corpuscular Volume 90.2 FL (87-102); Mean Platelet Volume 11.3 FL (9.6-12.0); Monocytes % 6.5 % (1.7-12.7); Neutrophils % 70.5 % (38.7-73.9); Platelet Count 123 T/CUMM (130-400); Red Blood Count 3.46 MC/CUMM (3.8-5.5); Red Cell Distribution Width 18.8 % (9.3-17.3); White Blood Count 5.9 T/CUMM (4-12)
[2018-12-14 05:18] LABS: INR 1.6; PT Patient Result 17.7 SECS
[2018-12-14] MEDS: BUDESONIDE 0.5 MG/2 ML NEB RESP TX SCH ×2 (06:51→20:46)
[2018-12-14] MEDS: INSULIN REGULAR 100 UNIT/ML SUBCUT SCH ×4 (09:31→20:50)
[2018-12-14] MEDS: AMIODARONE 200 MG TABLET PO SCH (10:32)
[2018-12-14] MEDS: CITALOPRAM 40 MG TABLET PO SCH (10:32)
[2018-12-14] MEDS: CALCIUM CARBONATE CHEW 500 MG TABLET PO SCH ×2 (10:32→20:49)
[2018-12-14] MEDS: FAMOTIDINE 20 MG TABLET PO SCH ×2 (10:32→20:49)
[2018-12-14] MEDS: predniSONE 20 MG TABLET PO SCH (10:32)
[2018-12-14] MEDS: ASPIRIN CHEW 81 MG TABLET PO SCH (10:32)
[2018-12-14] MEDS: POTASSIUM CHLORIDE 20 MEQ/15 ML UDCUP PER TUBE SCH (10:33)
[2018-12-14] MEDS: BUDESONIDE/FORMOTEROL 160-4.5 INHALER 6 GM INH SCH ×2 (10:33→20:50)
[2018-12-14] MEDS: DESITIN 4OZ/NYSTATIN 15 GRAM MIXTURE PASTE TOP SCH ×2 (10:34→20:50)
[2018-12-14] MEDS: MULTIVITAMIN LIQUID (CENTRUM) 60 ML BOTTLE PER TUBE SCH (12:09)
[2018-12-14] MEDS: WARFARIN 5 MG TABLET PO SCH (17:04)
[2018-12-14] MEDS: MIRTAZAPINE 30 MG TABLET PO SCH (20:49)
[2018-12-14] MEDS: diphenhydrAMINE CAP 25 MG CAPSULE PO SCH (20:49)
[2018-12-15] MEDS: ALBUTEROL/IPRATROPIUM 3 ML NEB RESP TX SCH ×4 (01:16→19:00)
[2018-12-15] MEDS: THEOPHYLLINE 5.33 MG/ML 30 ML/BOTTLE PER TUBE SCH ×4 (03:14→20:54)
[2018-12-15 05:58] LABS: INR 1.8; PT Patient Result 19.6 SECS
[2018-12-15] MEDS: BUDESONIDE 0.5 MG/2 ML NEB RESP TX SCH ×2 (07:04→19:00)
[2018-12-15] MEDS: INSULIN REGULAR 100 UNIT/ML SUBCUT SCH ×4 (07:33→21:01)
[2018-12-15] MEDS: MULTIVITAMIN LIQUID (CENTRUM) 60 ML BOTTLE PER TUBE SCH (09:55)
[2018-12-15] MEDS: POTASSIUM CHLORIDE 20 MEQ/15 ML UDCUP PER TUBE SCH (09:56)
[2018-12-15] MEDS: FAMOTIDINE 20 MG TABLET PO SCH ×2 (09:57→20:54)
[2018-12-15] MEDS: CALCIUM CARBONATE CHEW 500 MG TABLET PO SCH ×2 (09:57→20:54)
[2018-12-15] MEDS: AMIODARONE 200 MG TABLET PO SCH (09:57)
[2018-12-15] MEDS: ASPIRIN CHEW 81 MG TABLET PO SCH (09:57)
[2018-12-15] MEDS: predniSONE 20 MG TABLET PO SCH (09:57)
[2018-12-15] MEDS: CITALOPRAM 40 MG TABLET PO SCH (09:57)
[2018-12-15] MEDS: DESITIN 4OZ/NYSTATIN 15 GRAM MIXTURE PASTE TOP SCH ×2 (10:02→20:55)
[2018-12-15] MEDS: BUDESONIDE/FORMOTEROL 160-4.5 INHALER 6 GM INH SCH ×2 (10:02→20:55)
[2018-12-15] MEDS: WARFARIN 5 MG TABLET PO SCH (18:29)
[2018-12-15] MEDS: diphenhydrAMINE CAP 25 MG CAPSULE PO SCH (20:54)
[2018-12-15] MEDS: MIRTAZAPINE 30 MG TABLET PO SCH (20:54)
[2018-12-16] MEDS: ALBUTEROL/IPRATROPIUM 3 ML NEB RESP TX SCH ×4 (01:48→19:17)
[2018-12-16] MEDS: THEOPHYLLINE 5.33 MG/ML 30 ML/BOTTLE PER TUBE SCH ×4 (02:39→20:06)
[2018-12-16 06:48] LABS: INR 2.3
[2018-12-16 06:52] LABS: PT Patient Result 24.3 SECS
[2018-12-16] MEDS: BUDESONIDE 0.5 MG/2 ML NEB RESP TX SCH ×2 (07:18→19:17)
[2018-12-16] MEDS: INSULIN REGULAR 100 UNIT/ML SUBCUT SCH ×4 (07:37→22:02)
[2018-12-16] MEDS: MULTIVITAMIN LIQUID (CENTRUM) 60 ML BOTTLE PER TUBE SCH (09:03)
[2018-12-16] MEDS: POTASSIUM CHLORIDE 20 MEQ/15 ML UDCUP PER TUBE SCH (09:03)
[2018-12-16] MEDS: AMIODARONE 200 MG TABLET PO SCH (09:04)
[2018-12-16] MEDS: BUDESONIDE/FORMOTEROL 160-4.5 INHALER 6 GM INH SCH ×2 (09:04→20:07)
[2018-12-16] MEDS: predniSONE 20 MG TABLET PO SCH (09:04)
[2018-12-16] MEDS: DESITIN 4OZ/NYSTATIN 15 GRAM MIXTURE PASTE TOP SCH ×2 (09:04→20:07)
[2018-12-16] MEDS: CALCIUM CARBONATE CHEW 500 MG TABLET PO SCH ×2 (09:04→20:06)
[2018-12-16] MEDS: ASPIRIN CHEW 81 MG TABLET PO SCH (09:04)
[2018-12-16] MEDS: FAMOTIDINE 20 MG TABLET PO SCH ×2 (09:04→20:06)
[2018-12-16] MEDS: CITALOPRAM 40 MG TABLET PO SCH (09:04)
[2018-12-16] MEDS: FUROSEMIDE 40 MG/4 ML VIAL IV SCH (16:48)
[2018-12-16] MEDS: WARFARIN 5 MG TABLET PO SCH (17:15)
[2018-12-16] MEDS: diphenhydrAMINE CAP 25 MG CAPSULE PO SCH (20:06)
[2018-12-16] MEDS: MIRTAZAPINE 30 MG TABLET PO SCH (20:06)
[2018-12-17] MEDS: ALBUTEROL/IPRATROPIUM 3 ML NEB RESP TX SCH ×2 (00:05→07:25)
[2018-12-17] MEDS: THEOPHYLLINE 5.33 MG/ML 30 ML/BOTTLE PER TUBE SCH ×2 (02:18→09:21)
[2018-12-17 06:21] LABS: INR 2.8
[2018-12-17] MEDS: BUDESONIDE 0.5 MG/2 ML NEB RESP TX SCH (07:25)
[2018-12-17 07:48] VITALS: BP 139/79
[2018-12-17] MEDS: INSULIN REGULAR 100 UNIT/ML SUBCUT SCH (09:20)
[2018-12-17] MEDS: BUDESONIDE/FORMOTEROL 160-4.5 INHALER 6 GM INH SCH (09:21)
[2018-12-17] MEDS: POTASSIUM CHLORIDE 20 MEQ/15 ML UDCUP PER TUBE SCH (09:23)
[2018-12-17] MEDS: FAMOTIDINE 20 MG TABLET PO SCH (09:24)
[2018-12-17] MEDS: CITALOPRAM 40 MG TABLET PO SCH (09:24)
[2018-12-17] MEDS: FUROSEMIDE 40 MG/4 ML VIAL IV SCH (09:24)
[2018-12-17] MEDS: ASPIRIN CHEW 81 MG TABLET PO SCH (09:24)
[2018-12-17] MEDS: MULTIVITAMIN LIQUID (CENTRUM) 60 ML BOTTLE PER TUBE SCH (09:24)
[2018-12-17] MEDS: CALCIUM CARBONATE CHEW 500 MG TABLET PO SCH (09:24)
[2018-12-17] MEDS: AMIODARONE 200 MG TABLET PO SCH (09:24)
[2018-12-17] MEDS: predniSONE 20 MG TABLET PO SCH (09:24)
[2018-12-17] MEDS: DESITIN 4OZ/NYSTATIN 15 GRAM MIXTURE PASTE TOP SCH (09:24)
[2018-12-17] MEDS ORDERED: WARFARIN 3 MG TABLET PO SCH (18:00)
== END 2018-12-17 11:42 | disposition swing bed (61) | DRG 207 ==
LOC: EDBD → EDUNIT# → N.ED 15:18 → SUATTDRO 16:33 → N.EDINP 16:33 → SUATTDRO 16:34 → N.TELEN 18:17 → N.CC 11-28 15:52 → N.2E 12-07 16:36
PROVIDERS: ADMIT Emergency Medicine; ATTEND Family Medicine

== ENCOUNTER 2018-12-26 14:14 | Inpatient (IN) ==
[2018-12-26] MEDS ORDERED: FUROSEMIDE 100 MG/10 ML VIAL ONE (14:31)
[2018-12-26] MEDS ORDERED: FUROSEMIDE 40 MG/4 ML VIAL IV STA (14:32)
[2018-12-26] MEDS ORDERED: ALBUTEROL/IPRATROPIUM 3 ML NEB RESP TX STA (15:09)
[2018-12-26 15:29] LABS: Basophils % 0.2 % (0.0-0.8); Eosinophils % 0.1 % (0.00-10.9); Hemoglobin 10.2 GM/DL (12.0-16.0); Immature Granulocytes % 6.4 %; Immature Granulocytes Absolute 0.84 #; Lymphocytes # 0.5 10*3/uL (1.4-4.0); Lymphocytes % 3.7 % (21.3-54.2); Mean Corpuscular Volume 92.9 FL (87-102); Mean Platelet Volume 10.3 FL (9.6-12.0); NRBC # 0.02 10*3/uL; Neutrophils % 86.6 % (38.7-73.9); Platelet Count 438 T/CUMM (130-400); Red Blood Count 3.66 MC/CUMM (3.8-5.5); Red Cell Distribution Width 17.2 % (9.3-17.3); White Blood Count 13.1 T/CUMM (4-12)
[2018-12-26 15:34] LABS: Alanine Aminotransferase 20 U/L (13-56); Albumin 2.1 G/DL (3.4-5.0); Alkaline Phosphatase 151 U/L (45-117); Aspartate Amino Transferase 15 U/L (0-37); Bilirubin,Total < 0.39 MG/DL (0.2-1.0); Blood Urea Nitrogen 12 MG/DL (7-18); Calcium 9.3 MG/DL (8.5-10.1); Estimated Glom Filtration Rate 104 ML/MIN; Glucose 261 MG/DL (74-106); Osmolality,Calculated 285.5 MOS/KG (273-304); Total Protein 7.3 G/DL (6.4-8.3)
[2018-12-26 15:50] LABS: INR 2.9
[2018-12-26 15:51] LABS: PT Patient Result 31.4 SECS (9.6-12.2)
[2018-12-26 16:04] LABS: Band Neutrophils 2 % (0-10); Hypochromasia Slight; Lymphocytes 7 % (20-55); Platelet Estimate Increased; Segmented Neutrophils 90 % (50-85); Total Cells Counted 100
[2018-12-26] MEDS ORDERED: ONDANSETRON 4 MG/2 ML VIAL IV PRN (16:19)
[2018-12-26] MEDS ORDERED: BISACODYL 5 MG TABLET PO PRN (16:31)
[2018-12-26] MEDS ORDERED: DICLOFENAC 1% GEL 100 GM TUBE TOP PRN (16:31)
[2018-12-26] MEDS ORDERED: ALBUTEROL 1.25 MG/3 ML NEB RESP TX PRN (19:00)
[2018-12-26] MEDS: PIPERACILLIN/TAZOBACTAM 3,375 MG in SODIUM CHLORIDE 0.9% 100 ML IV SCH (21:24)
[2018-12-26] MEDS: POTASSIUM CHLORIDE 20 MEQ TABLET PO SCH (21:24)
[2018-12-26] MEDS: CALCIUM CARBONATE CHEW 500 MG TABLET PO SCH (21:24)
[2018-12-26] MEDS: FAMOTIDINE 20 MG TABLET PO SCH (21:25)
[2018-12-26] MEDS: MIRTAZAPINE 30 MG TABLET PO SCH (21:25)
[2018-12-26] MEDS: NYSTATIN OINT 15 GM TUBE TOP SCH (21:27)
[2018-12-26] MEDS: FERROUS SULFATE ER 140 MG TABLET PO SCH (21:27)
[2018-12-26] MEDS: ZINC OXIDE 16% PASTE 57 GM TUBE TOP SCH (21:27)
[2018-12-26] MEDS: POLYETHYLENE GLYCOL POWDER 17 GM PACK PO SCH (21:34)
[2018-12-27 04:09] LABS: Basophils # 0.1 10*3/uL (0.0-0.2); Basophils % 0.7 % (0.0-0.8); Eosinophils # 0.1 10*3/uL (0.0-0.87); Hematocrit 33.7 VOL% (35.7-47.0); Hemoglobin 9.9 GM/DL (12.0-16.0); Immature Granulocytes % 6.1 %; Immature Granulocytes Absolute 0.66 #; Lymphocytes # 1.1 10*3/uL (1.4-4.0); Lymphocytes % 9.8 % (21.3-54.2); Mean Corpuscular HGB Conc 29.4 GM/DL (32-36); Mean Corpuscular Volume 94.7 FL (87-102); Mean Platelet Volume 10.1 FL (9.6-12.0); Monocytes % 5.8 % (1.7-12.7); NRBC # 0.03 10*3/uL; Neutrophils % 76.6 % (38.7-73.9); Platelet Count 455 T/CUMM (130-400); Red Blood Count 3.56 MC/CUMM (3.8-5.5); Red Cell Distribution Width 17.2 % (9.3-17.3); White Blood Count 10.8 T/CUMM (4-12)
[2018-12-27 04:31] LABS: Band Neutrophils 3 % (0-10); Hypochromasia 1+; Lymphocytes 6 % (20-55); Nucleated Red Blood Cells 1 (0-5); Platelet Estimate Adequate; Segmented Neutrophils 83 % (50-85); Total Cells Counted 100
[2018-12-27 04:34] LABS: INR 3.5
[2018-12-27 04:39] LABS: PT Patient Result 37.3 SECS (9.6-12.2)
[2018-12-27] MEDS: PIPERACILLIN/TAZOBACTAM 3,375 MG in SODIUM CHLORIDE 0.9% 100 ML IV SCH ×3 (05:13→20:56)
[2018-12-27 05:55] LABS: Apearance,Urine Slightly Hazy (Clear); Bilirubin,Urine Negative (Negative); Blood, Urine Large mg/dL (Negative); Glucose,Urine (UA) Negative (Negative); Hyaline Casts,Urine 5 /LPF (0-3); Ketones,Urine Negative (Negative); Mucus,Urine Occasional /LPF (Occasional); Nitrite,Urine Negative (Negative); Protein,Urine Negative; RBC,Urine 75 /HPF (0-4); Squamous Epithelial Cell,Urine Occasional /HPF (0-10); Urine Color Yellow (Yellow); Urine Specific Gravity 1.021 (1.001-1.035); Urine Urobilinogen < 2.0 EU/DL (0.2-1.0); WBC,Urine 9 /HPF (0-6)
[2018-12-27 06:38] LABS: Blood Urea Nitrogen 17 MG/DL (7-18); Calcium 9.2 MG/DL (8.5-10.1); Estimated Glom Filtration Rate 122 ML/MIN; Glucose 106 MG/DL (74-106); HDL Cholesterol 85 MG/DL (40-60); Osmolality,Calculated 282.3 MOS/KG (273-304); Risk Ratio 2.15; Triglycerides 64 MG/DL (2-150); VLDL CHOLESTEROL 12.8 MG/DL
[2018-12-27] MEDS ORDERED: FUROSEMIDE 40 MG/4 ML VIAL IV SCH (08:00)
[2018-12-27] MEDS: predniSONE 20 MG TABLET PO SCH (08:40)
[2018-12-27] MEDS: ASPIRIN CHEW 81 MG TABLET PO SCH (08:40)
[2018-12-27] MEDS: PANTOPRAZOLE 40 MG TABLET PO SCH (08:40)
[2018-12-27] MEDS: NYSTATIN OINT 15 GM TUBE TOP SCH ×2 (08:40→20:51)
[2018-12-27] MEDS: FUROSEMIDE 40 MG/4 ML VIAL IV SCH (08:40)
[2018-12-27] MEDS: POLYETHYLENE GLYCOL POWDER 17 GM PACK PO SCH ×2 (08:40→20:51)
[2018-12-27] MEDS: FAMOTIDINE 20 MG TABLET PO SCH ×2 (08:40→20:51)
[2018-12-27] MEDS: ZINC OXIDE 16% PASTE 57 GM TUBE TOP SCH ×2 (08:40→20:52)
[2018-12-27] MEDS: AMIODARONE 200 MG TABLET PO SCH (08:40)
[2018-12-27] MEDS: CITALOPRAM 40 MG TABLET PO SCH (08:40)
[2018-12-27] MEDS: BUDESONIDE/FORMOTEROL 160-4.5 INHALER 6 GM INH SCH (08:40)
[2018-12-27] MEDS: POTASSIUM CHLORIDE 20 MEQ TABLET PO SCH ×2 (08:40→20:51)
[2018-12-27] MEDS: CALCIUM CARBONATE CHEW 500 MG TABLET PO SCH ×2 (08:40→20:51)
[2018-12-27] MEDS: THEOPHYLLINE ER (24 HR) 400 MG CAPSULE PO SCH (08:40)
[2018-12-27] MEDS: FERROUS SULFATE ER 140 MG TABLET PO SCH ×2 (08:40→20:51)
[2018-12-27] MEDS ORDERED: FUROSEMIDE 40 MG TABLET PO SCH (09:00)
[2018-12-27] MEDS ORDERED: ENOXAPARIN 40 MG/0.4 ML SYRINGE SUBCUT SCH (09:00)
[2018-12-27] MEDS ORDERED: WARFARIN 3 MG TABLET PO SCH ×2 (18:00)
[2018-12-27 20:13] LABS: ABG Base Excess 20.9 MMOL/L (-2.5-2.5); ABG HCO3 45.2 MMOL/L (20-26); ABG Oxygen Saturation 88.1 % (95-100); ABG PH 7.417 (7.35-7.45); ABG PO2 58.1 MM HG (80-95); ABG TCO2 45.2 MMOL/L (23-27); Allen Test Positive; Pt O2 Delivery Device Other
[2018-12-27 20:17] LABS: ABG PCO2 77.6 MM HG (35-48)
[2018-12-27] MEDS: MIRTAZAPINE 30 MG TABLET PO SCH (20:51)
[2018-12-28 05:32] LABS: Basophils # 0.1 10*3/uL (0.0-0.2); Basophils % 0.5 % (0.0-0.8); Eosinophils # 0.1 10*3/uL (0.0-0.87); Eosinophils % 0.5 % (0.00-10.9); Hematocrit 32.3 VOL% (35.7-47.0); Hemoglobin 9.8 GM/DL (12.0-16.0); Immature Granulocytes % 3.9 %; Immature Granulocytes Absolute 0.71 #; Lymphocytes # 1.2 10*3/uL (1.4-4.0); Lymphocytes % 6.2 % (21.3-54.2); Mean Corpuscular HGB Conc 30.3 GM/DL (32-36); Mean Corpuscular Volume 91.8 FL (87-102); Monocytes % 3.4 % (1.7-12.7); Neutrophils % 85.5 % (38.7-73.9); Platelet Count 478 T/CUMM (130-400); Red Blood Count 3.52 MC/CUMM (3.8-5.5); Red Cell Distribution Width 16.9 % (9.3-17.3); White Blood Count 18.4 T/CUMM (4-12)
[2018-12-28] MEDS: PIPERACILLIN/TAZOBACTAM 3,375 MG in SODIUM CHLORIDE 0.9% 100 ML IV SCH ×3 (05:37→21:10)
[2018-12-28 05:38] LABS: INR 3.8
[2018-12-28 05:55] LABS: Band Neutrophils 1 % (0-10); Hypochromasia 1+; Lymphocytes 9 % (20-55); Platelet Estimate Adequate; Segmented Neutrophils 89 % (50-85); Total Cells Counted 100
[2018-12-28 06:09] LABS: PT Patient Result 41.3 SECS (9.6-12.2)
[2018-12-28 06:45] LABS: Blood Urea Nitrogen 15 MG/DL (7-18); Estimated Glom Filtration Rate 115 ML/MIN; Glucose 143 MG/DL (74-106); Osmolality,Calculated 277.7 MOS/KG (273-304)
[2018-12-28] MEDS: CALCIUM CARBONATE CHEW 500 MG TABLET PO SCH ×2 (08:32→21:11)
[2018-12-28] MEDS: predniSONE 20 MG TABLET PO SCH (08:33)
[2018-12-28] MEDS: FAMOTIDINE 20 MG TABLET PO SCH ×2 (08:33→21:11)
[2018-12-28] MEDS: ASPIRIN CHEW 81 MG TABLET PO SCH (08:33)
[2018-12-28] MEDS: THEOPHYLLINE ER (24 HR) 400 MG CAPSULE PO SCH (08:33)
[2018-12-28] MEDS: CITALOPRAM 40 MG TABLET PO SCH (08:33)
[2018-12-28] MEDS: POTASSIUM CHLORIDE 20 MEQ TABLET PO SCH ×2 (08:33→21:11)
[2018-12-28] MEDS: FERROUS SULFATE ER 140 MG TABLET PO SCH ×2 (08:33→21:11)
[2018-12-28] MEDS: AMIODARONE 200 MG TABLET PO SCH (08:33)
[2018-12-28] MEDS: ZINC OXIDE 16% PASTE 57 GM TUBE TOP SCH ×2 (08:34→21:12)
[2018-12-28] MEDS: POLYETHYLENE GLYCOL POWDER 17 GM PACK PO SCH ×2 (08:34→21:14)
[2018-12-28] MEDS: BUDESONIDE/FORMOTEROL 160-4.5 INHALER 6 GM INH SCH (08:34)
[2018-12-28] MEDS: NYSTATIN OINT 15 GM TUBE TOP SCH ×2 (08:34→21:14)
[2018-12-28] MEDS: PANTOPRAZOLE 40 MG TABLET PO SCH (08:34)
[2018-12-28] MEDS: FUROSEMIDE 40 MG/4 ML VIAL IV SCH (08:35)
[2018-12-28] MEDS ORDERED: MAGNESIUM SULF RIDER 4 GM in PREMIX 1 EACH IV PRN (09:34)
[2018-12-28] MEDS ORDERED: MAGNESIUM SULF RIDER 2 GM in PREMIX 1 EACH IV PRN (09:34)
[2018-12-28] MEDS ORDERED: POTASSIUM CHLORIDE RIDER 10 MEQ in PREMIX 1 EACH IV PRN (12:38)
[2018-12-28] MEDS: POTASSIUM CHLORIDE 20 MEQ TABLET PO PRN ×3 (13:59→17:53)
[2018-12-28] MEDS ORDERED: WARFARIN 3 MG TABLET PO SCH (18:00)
[2018-12-28] MEDS: MIRTAZAPINE 30 MG TABLET PO SCH (21:11)
[2018-12-29 04:17] LABS: Basophils # 0.1 10*3/uL (0.0-0.2); Basophils % 0.6 % (0.0-0.8); Eosinophils # 0.1 10*3/uL (0.0-0.87); Eosinophils % 0.4 % (0.00-10.9); Hematocrit 32.9 VOL% (35.7-47.0); Hemoglobin 9.9 GM/DL (12.0-16.0); Immature Granulocytes % 4.9 %; Immature Granulocytes Absolute 0.72 #; Lymphocytes # 1.4 10*3/uL (1.4-4.0); Lymphocytes % 9.2 % (21.3-54.2); Mean Corpuscular HGB Conc 30.1 GM/DL (32-36); Mean Corpuscular Volume 93.5 FL (87-102); Mean Platelet Volume 9.7 FL (9.6-12.0); Monocytes % 5.6 % (1.7-12.7); Neutrophils % 79.3 % (38.7-73.9); Platelet Count 501 T/CUMM (130-400); Red Blood Count 3.52 MC/CUMM (3.8-5.5); Red Cell Distribution Width 16.7 % (9.3-17.3); White Blood Count 14.8 T/CUMM (4-12)
[2018-12-29 04:32] LABS: INR 3.1
[2018-12-29 04:33] LABS: Calcium 8.9 MG/DL (8.5-10.1); Osmolality,Calculated 276.5 MOS/KG (273-304)
[2018-12-29 04:34] LABS: PT Patient Result 33.3 SECS (9.6-12.2)
[2018-12-29] MEDS: PIPERACILLIN/TAZOBACTAM 3,375 MG in SODIUM CHLORIDE 0.9% 100 ML IV SCH ×3 (04:46→21:06)
[2018-12-29 05:21] LABS: Band Neutrophils 2 % (0-10); Lymphocytes 13 % (20-55); Metamyelocytes 1 %; Myelocytes 1 %; Segmented Neutrophils 82 % (50-85); Total Cells Counted 100
[2018-12-29 05:22] LABS: Hypochromasia 2+; Ovalocytes Slight; Polychromasia Slight
[2018-12-29 05:23] LABS: Anisocytosis 1+
[2018-12-29 05:24] LABS: Microcytosis Slight; Platelet Estimate Increased
[2018-12-29] MEDS: FUROSEMIDE 40 MG/4 ML VIAL IV SCH (10:00)
[2018-12-29] MEDS: THEOPHYLLINE ER (24 HR) 400 MG CAPSULE PO SCH (10:01)
[2018-12-29] MEDS: CALCIUM CARBONATE CHEW 500 MG TABLET PO SCH ×2 (10:01→21:06)
[2018-12-29] MEDS: FERROUS SULFATE ER 140 MG TABLET PO SCH ×2 (10:02→21:06)
[2018-12-29] MEDS: predniSONE 20 MG TABLET PO SCH (10:02)
[2018-12-29] MEDS: AMIODARONE 200 MG TABLET PO SCH (10:02)
[2018-12-29] MEDS: FAMOTIDINE 20 MG TABLET PO SCH ×2 (10:02→21:06)
[2018-12-29] MEDS: ASPIRIN CHEW 81 MG TABLET PO SCH (10:02)
[2018-12-29] MEDS: POTASSIUM CHLORIDE 20 MEQ TABLET PO SCH ×2 (10:03→21:06)
[2018-12-29] MEDS: CITALOPRAM 40 MG TABLET PO SCH (10:03)
[2018-12-29] MEDS: PANTOPRAZOLE 40 MG TABLET PO SCH (10:03)
[2018-12-29] MEDS: POLYETHYLENE GLYCOL POWDER 17 GM PACK PO SCH ×2 (10:03→21:06)
[2018-12-29] MEDS: BUDESONIDE/FORMOTEROL 160-4.5 INHALER 6 GM INH SCH (10:04)
[2018-12-29] MEDS: NYSTATIN OINT 15 GM TUBE TOP SCH ×2 (10:16→21:06)
[2018-12-29] MEDS: ZINC OXIDE 16% PASTE 57 GM TUBE TOP SCH ×2 (10:16→21:06)
[2018-12-29] MEDS ORDERED: AMIODARONE 200 MG TABLET PO ONE (13:21)
[2018-12-29] MEDS ORDERED: SODIUM CHLORIDE 0.9% 500 ML IV ONE (13:22)
[2018-12-29] MEDS ORDERED: ALBUTEROL 2.5 MG/3 ML NEB RESP TX PRN (15:51)
[2018-12-29] MEDS ORDERED: AMIODARONE 150 MG/3 ML VIAL ONE ×2 (16:46→17:06)
[2018-12-29] MEDS ORDERED: AMIODARONE 450 MG/9 ML VIAL IV ONE (16:47)
[2018-12-29] MEDS ORDERED: AMIODARONE INJ 150 MG in DEXTROSE 5% 100 ML IV ONE ×2 (16:52→17:07)
[2018-12-29] MEDS ORDERED: AMIODARONE INJ 450 MG in DEXTROSE 5% 241 ML IV SCH ×2 (17:00→23:00)
[2018-12-29] MEDS ORDERED: METOPROLOL TARTRATE 5 MG/5 ML VIAL IV ONE ×2 (17:11→17:14)
[2018-12-29] MEDS ORDERED: ALBUTEROL 2.5 MG/3 ML NEB RESP TX SCH (19:00)
[2018-12-29] MEDS: LEVALBUTEROL 1.25 MG/3 ML NEB RESP TX SCH ×2 (19:52→23:48)
[2018-12-29] MEDS: MIRTAZAPINE 30 MG TABLET PO SCH (21:06)
[2018-12-29] MEDS: METOPROLOL TARTRATE 5 MG/5 ML VIAL IV PRN (23:29)
[2018-12-30 04:18] LABS: Basophils # 0.1 10*3/uL (0.0-0.2); Basophils % 0.6 % (0.0-0.8); Eosinophils # 0.1 10*3/uL (0.0-0.87); Eosinophils % 0.5 % (0.00-10.9); Hematocrit 30.9 VOL% (35.7-47.0); Immature Granulocytes % 6.6 %; Immature Granulocytes Absolute 0.74 #; Lymphocytes # 1.4 10*3/uL (1.4-4.0); Lymphocytes % 12.7 % (21.3-54.2); Mean Corpuscular HGB Conc 29.1 GM/DL (32-36); Mean Corpuscular Volume 95.4 FL (87-102); Mean Platelet Volume 9.5 FL (9.6-12.0); Monocytes % 7.4 % (1.7-12.7); Neutrophils % 72.2 % (38.7-73.9); Platelet Count 475 T/CUMM (130-400); Red Blood Count 3.24 MC/CUMM (3.8-5.5); Red Cell Distribution Width 16.5 % (9.3-17.3); White Blood Count 11.2 T/CUMM (4-12)
[2018-12-30] MEDS: LEVALBUTEROL 1.25 MG/3 ML NEB RESP TX SCH ×6 (04:35→23:33)
[2018-12-30 04:53] LABS: Blood Urea Nitrogen 14 MG/DL (7-18); Calcium 8.2 MG/DL (8.5-10.1); Estimated Glom Filtration Rate 122 ML/MIN; Glucose 101 MG/DL (74-106); Osmolality,Calculated 279.4 MOS/KG (273-304)
[2018-12-30 04:54] LABS: Anisocytosis 1+; Band Neutrophils 4 % (0-10); Hypochromasia 1+; Lymphocytes 8 % (20-55); Nucleated Red Blood Cells 1 (0-5); Segmented Neutrophils 82 % (50-85); Total Cells Counted 100
[2018-12-30 04:55] LABS: Platelet Estimate Normal; Tear Drop Cells 1+
[2018-12-30] MEDS: PIPERACILLIN/TAZOBACTAM 3,375 MG in SODIUM CHLORIDE 0.9% 100 ML IV SCH ×2 (05:34→16:30)
[2018-12-30] MEDS: POTASSIUM CHLORIDE 20 MEQ TABLET PO PRN ×2 (05:35→08:06)
[2018-12-30] MEDS: METOPROLOL TARTRATE 5 MG/5 ML VIAL IV PRN ×3 (05:36→20:21)
[2018-12-30] MEDS: CITALOPRAM 40 MG TABLET PO SCH (08:04)
[2018-12-30] MEDS: CALCIUM CARBONATE CHEW 500 MG TABLET PO SCH ×2 (08:04→20:20)
[2018-12-30] MEDS: FAMOTIDINE 20 MG TABLET PO SCH ×2 (08:05→20:20)
[2018-12-30] MEDS: predniSONE 20 MG TABLET PO SCH (08:05)
[2018-12-30] MEDS: FERROUS SULFATE ER 140 MG TABLET PO SCH ×2 (08:05→20:20)
[2018-12-30] MEDS: POLYETHYLENE GLYCOL POWDER 17 GM PACK PO SCH ×2 (08:05→20:20)
[2018-12-30] MEDS: PANTOPRAZOLE 40 MG TABLET PO SCH (08:05)
[2018-12-30] MEDS: POTASSIUM CHLORIDE 20 MEQ TABLET PO SCH ×2 (08:05→20:20)
[2018-12-30] MEDS: THEOPHYLLINE ER (24 HR) 400 MG CAPSULE PO SCH (08:06)
[2018-12-30] MEDS: FUROSEMIDE 40 MG/4 ML VIAL IV SCH (08:06)
[2018-12-30] MEDS: ASPIRIN CHEW 81 MG TABLET PO SCH (08:06)
[2018-12-30] MEDS: BUDESONIDE/FORMOTEROL 160-4.5 INHALER 6 GM INH SCH (08:55)
[2018-12-30] MEDS ORDERED: AMIODARONE 200 MG TABLET PO SCH (09:00)
[2018-12-30] MEDS: NYSTATIN OINT 15 GM TUBE TOP SCH ×2 (09:06→20:20)
[2018-12-30] MEDS: ZINC OXIDE 16% PASTE 57 GM TUBE TOP SCH ×2 (09:06→20:20)
[2018-12-30] MEDS: dilTIAZem Drip 125 MG/125 ML PREMIX IV SCH ×2 (09:40→18:32)
[2018-12-30] MEDS: VANCOMYCIN INJ 1,750 MG in SODIUM CHLORIDE 0.9% 500 ML IV SCH (13:46)
[2018-12-30] MEDS: MIRTAZAPINE 30 MG TABLET PO SCH (20:20)
[2018-12-30] MEDS ORDERED: SODIUM CHLORIDE 0.9% 250 ML IV ONE (23:49)
[2018-12-31] MEDS: VANCOMYCIN INJ 1,750 MG in SODIUM CHLORIDE 0.9% 500 ML IV SCH ×2 (00:35→13:45)
[2018-12-31] MEDS: PIPERACILLIN/TAZOBACTAM 3,375 MG in SODIUM CHLORIDE 0.9% 100 ML IV SCH ×3 (02:28→19:05)
[2018-12-31] MEDS: LEVALBUTEROL 1.25 MG/3 ML NEB RESP TX SCH ×6 (03:33→22:30)
[2018-12-31] MEDS: dilTIAZem Drip 125 MG/125 ML PREMIX IV SCH ×2 (04:01→12:30)
[2018-12-31] MEDS: FAMOTIDINE 20 MG TABLET PO SCH ×2 (10:22→22:01)
[2018-12-31] MEDS: CITALOPRAM 40 MG TABLET PO SCH (10:22)
[2018-12-31] MEDS: ASPIRIN CHEW 81 MG TABLET PO SCH (10:23)
[2018-12-31] MEDS: FERROUS SULFATE ER 140 MG TABLET PO SCH ×2 (10:23→22:00)
[2018-12-31] MEDS: PANTOPRAZOLE 40 MG TABLET PO SCH (10:23)
[2018-12-31] MEDS: CALCIUM CARBONATE CHEW 500 MG TABLET PO SCH ×2 (10:23→22:01)
[2018-12-31] MEDS: POTASSIUM CHLORIDE 20 MEQ TABLET PO SCH ×2 (10:24→22:02)
[2018-12-31] MEDS: THEOPHYLLINE ER (24 HR) 400 MG CAPSULE PO SCH (10:24)
[2018-12-31] MEDS: predniSONE 20 MG TABLET PO SCH (10:24)
[2018-12-31] MEDS: METOPROLOL TARTRATE 25 MG TABLET PO SCH ×2 (10:24→22:01)
[2018-12-31] MEDS: FUROSEMIDE 40 MG/4 ML VIAL IV SCH (10:25)
[2018-12-31] MEDS: POLYETHYLENE GLYCOL POWDER 17 GM PACK PO SCH ×2 (10:26→22:03)
[2018-12-31] MEDS: NYSTATIN OINT 15 GM TUBE TOP SCH ×2 (10:26→22:04)
[2018-12-31] MEDS: BUDESONIDE/FORMOTEROL 160-4.5 INHALER 6 GM INH SCH (11:30)
[2018-12-31 11:41] LABS: INR 1.5; PT Patient Result 16.4 SECS (9.6-12.2)
[2018-12-31] MEDS ORDERED: DILTIAZEM 30 MG TABLET PO ONE (12:10)
[2018-12-31] MEDS: ZINC OXIDE 16% PASTE 57 GM TUBE TOP SCH ×2 (12:29→22:03)
[2018-12-31] MEDS: DILTIAZEM 30 MG TABLET PO SCH ×2 (15:03→22:02)
[2018-12-31] MEDS ORDERED: WARFARIN 3 MG TABLET PO SCH (18:00)
[2018-12-31] MEDS: ACETAMINOPHEN 325 MG TABLET PO PRN (19:06)
[2018-12-31] MEDS: MIRTAZAPINE 30 MG TABLET PO SCH (22:01)
[2019-01-01] MEDS: VANCOMYCIN INJ 1,750 MG in SODIUM CHLORIDE 0.9% 500 ML IV SCH (01:42)
[2019-01-01] MEDS: LEVALBUTEROL 1.25 MG/3 ML NEB RESP TX SCH ×6 (02:26→23:38)
[2019-01-01] MEDS: PIPERACILLIN/TAZOBACTAM 3,375 MG in SODIUM CHLORIDE 0.9% 100 ML IV SCH ×3 (03:48→16:05)
[2019-01-01 05:03] LABS: INR 1.3; PT Patient Result 14.3 SECS (9.6-12.2)
[2019-01-01 05:04] LABS: INR 1.3; PT Patient Result 14.2 SECS (9.6-12.2)
[2019-01-01] MEDS: DILTIAZEM 30 MG TABLET PO SCH ×3 (09:32→22:47)
[2019-01-01] MEDS: THEOPHYLLINE ER (24 HR) 400 MG CAPSULE PO SCH (09:32)
[2019-01-01] MEDS: CALCIUM CARBONATE CHEW 500 MG TABLET PO SCH ×2 (09:32→22:48)
[2019-01-01] MEDS: FERROUS SULFATE ER 140 MG TABLET PO SCH ×2 (09:32→22:46)
[2019-01-01] MEDS: predniSONE 20 MG TABLET PO SCH (09:33)
[2019-01-01] MEDS: ASPIRIN CHEW 81 MG TABLET PO SCH (09:33)
[2019-01-01] MEDS: CITALOPRAM 40 MG TABLET PO SCH (09:33)
[2019-01-01] MEDS: POTASSIUM CHLORIDE 20 MEQ TABLET PO SCH ×2 (09:33→22:47)
[2019-01-01] MEDS: FAMOTIDINE 20 MG TABLET PO SCH ×2 (09:33→22:48)
[2019-01-01] MEDS: PANTOPRAZOLE 40 MG TABLET PO SCH (09:33)
[2019-01-01] MEDS: POLYETHYLENE GLYCOL POWDER 17 GM PACK PO SCH ×2 (09:34→22:49)
[2019-01-01] MEDS: FUROSEMIDE 40 MG/4 ML VIAL IV SCH (09:34)
[2019-01-01] MEDS: NYSTATIN OINT 15 GM TUBE TOP SCH ×2 (09:44→22:50)
[2019-01-01] MEDS: BUDESONIDE/FORMOTEROL 160-4.5 INHALER 6 GM INH SCH (09:44)
[2019-01-01] MEDS: ZINC OXIDE 16% PASTE 57 GM TUBE TOP SCH ×2 (09:44→22:50)
[2019-01-01] MEDS: METOPROLOL TARTRATE 25 MG TABLET PO SCH ×2 (09:47→22:48)
[2019-01-01] MEDS: ENOXAPARIN 120 MG/0.8 ML SYRINGE SUBCUT SCH ×2 (12:42→22:51)
[2019-01-01] MEDS: MIRTAZAPINE 30 MG TABLET PO SCH (22:46)
[2019-01-02] MEDS: PIPERACILLIN/TAZOBACTAM 3,375 MG in SODIUM CHLORIDE 0.9% 100 ML IV SCH ×3 (00:56→16:44)
[2019-01-02] MEDS: LEVALBUTEROL 1.25 MG/3 ML NEB RESP TX SCH ×6 (02:20→23:10)
[2019-01-02 06:35] LABS: INR 1.4; PT Patient Result 14.9 SECS (9.6-12.2)
[2019-01-02] MEDS: POLYETHYLENE GLYCOL POWDER 17 GM PACK PO SCH ×2 (09:22→21:07)
[2019-01-02] MEDS: FUROSEMIDE 40 MG/4 ML VIAL IV SCH (09:23)
[2019-01-02] MEDS: CITALOPRAM 40 MG TABLET PO SCH (09:23)
[2019-01-02] MEDS: DILTIAZEM 60 MG TABLET PO SCH ×3 (09:23→21:08)
[2019-01-02] MEDS: PANTOPRAZOLE 40 MG TABLET PO SCH (09:23)
[2019-01-02] MEDS: ASPIRIN CHEW 81 MG TABLET PO SCH (09:24)
[2019-01-02] MEDS: CALCIUM CARBONATE CHEW 500 MG TABLET PO SCH ×2 (09:24→21:08)
[2019-01-02] MEDS: FAMOTIDINE 20 MG TABLET PO SCH ×2 (09:24→21:09)
[2019-01-02] MEDS: POTASSIUM CHLORIDE 20 MEQ TABLET PO SCH ×2 (09:24→21:09)
[2019-01-02] MEDS: METOPROLOL TARTRATE 25 MG TABLET PO SCH ×2 (09:24→21:09)
[2019-01-02] MEDS: predniSONE 20 MG TABLET PO SCH (09:25)
[2019-01-02] MEDS: NYSTATIN OINT 15 GM TUBE TOP SCH ×2 (09:25→21:10)
[2019-01-02] MEDS: ZINC OXIDE 16% PASTE 57 GM TUBE TOP SCH ×2 (09:25→21:09)
[2019-01-02] MEDS: FERROUS SULFATE ER 140 MG TABLET PO SCH ×2 (09:25→21:08)
[2019-01-02] MEDS: BUDESONIDE/FORMOTEROL 160-4.5 INHALER 6 GM INH SCH (09:26)
[2019-01-02] MEDS: THEOPHYLLINE ER (24 HR) 400 MG CAPSULE PO SCH (10:53)
[2019-01-02] MEDS: ENOXAPARIN 120 MG/0.8 ML SYRINGE SUBCUT SCH ×2 (12:54→22:15)
[2019-01-02] MEDS ORDERED: METOPROLOL TARTRATE 5 MG/5 ML VIAL IV PRN (18:30)
[2019-01-02] MEDS: MIRTAZAPINE 30 MG TABLET PO SCH (21:08)
[2019-01-03] MEDS: PIPERACILLIN/TAZOBACTAM 3,375 MG in SODIUM CHLORIDE 0.9% 100 ML IV SCH (01:42)
[2019-01-03] MEDS: LEVALBUTEROL 1.25 MG/3 ML NEB RESP TX SCH ×5 (03:00→19:43)
[2019-01-03 05:36] LABS: Basophils % 0.3 % (0.0-0.8); Eosinophils % 0.2 % (0.00-10.9); Hematocrit 31.4 VOL% (35.7-47.0); Hemoglobin 9.2 GM/DL (12.0-16.0); INR 1.1; Immature Granulocytes % 11.4 %; Immature Granulocytes Absolute 1.07 #; Lymphocytes % 21.5 % (21.3-54.2); Mean Corpuscular HGB Conc 29.3 GM/DL (32-36); Mean Corpuscular Volume 93.7 FL (87-102); Mean Platelet Volume 9.9 FL (9.6-12.0); Monocytes % 9.7 % (1.7-12.7); Neutrophils % 56.9 % (38.7-73.9); PT Patient Result 12.3 SECS (9.6-12.2); Platelet Count 498 T/CUMM (130-400); Red Blood Count 3.35 MC/CUMM (3.8-5.5); Red Cell Distribution Width 17.4 % (9.3-17.3); White Blood Count 9.4 T/CUMM (4-12)
[2019-01-03 06:07] LABS: Calcium 9.2 MG/DL (8.5-10.1); Osmolality,Calculated 288.8 MOS/KG (273-304)
[2019-01-03 06:08] LABS: Band Neutrophils 1 % (0-10); Hypochromasia 1+; Lymphocytes 20 % (20-55); Microcytosis 1+; Myelocytes 3 %; Segmented Neutrophils 63 % (50-85); Total Cells Counted 100
[2019-01-03] MEDS: THEOPHYLLINE ER (24 HR) 400 MG CAPSULE PO SCH (08:40)
[2019-01-03] MEDS: METOPROLOL TARTRATE 25 MG TABLET PO SCH ×2 (08:40→21:01)
[2019-01-03] MEDS: DILTIAZEM 60 MG TABLET PO SCH ×3 (08:40→21:00)
[2019-01-03] MEDS: FUROSEMIDE 40 MG/4 ML VIAL IV SCH (08:40)
[2019-01-03] MEDS: PANTOPRAZOLE 40 MG TABLET PO SCH (08:40)
[2019-01-03] MEDS: NYSTATIN OINT 15 GM TUBE TOP SCH ×2 (08:43→21:02)
[2019-01-03] MEDS: ASPIRIN CHEW 81 MG TABLET PO SCH (08:43)
[2019-01-03] MEDS: FAMOTIDINE 20 MG TABLET PO SCH ×2 (08:43→21:01)
[2019-01-03] MEDS: ZINC OXIDE 16% PASTE 57 GM TUBE TOP SCH ×2 (08:43→21:02)
[2019-01-03] MEDS: CITALOPRAM 40 MG TABLET PO SCH (08:43)
[2019-01-03] MEDS: POTASSIUM CHLORIDE 20 MEQ TABLET PO SCH ×2 (08:43→21:01)
[2019-01-03] MEDS: POLYETHYLENE GLYCOL POWDER 17 GM PACK PO SCH ×2 (08:43→21:02)
[2019-01-03] MEDS: CALCIUM CARBONATE CHEW 500 MG TABLET PO SCH ×2 (08:44→21:00)
[2019-01-03] MEDS: FERROUS SULFATE ER 140 MG TABLET PO SCH ×2 (08:44→21:00)
[2019-01-03] MEDS: predniSONE 20 MG TABLET PO SCH (08:44)
[2019-01-03] MEDS: BUDESONIDE/FORMOTEROL 160-4.5 INHALER 6 GM INH SCH (08:44)
[2019-01-03] MEDS ORDERED: diphenhydrAMINE CAP 25 MG CAPSULE PO ONE (09:00)
[2019-01-03] MEDS ORDERED: DEXTROSE 5% NACL 0.45% 1,000 ML IV SCH (09:00)
[2019-01-03] MEDS ORDERED: ceFAZolin 1,000 MG in SYRINGE 1 EACH IV ONE (09:00)
[2019-01-03] MEDS ORDERED: ceFAZolin 1,000 MG VIAL IRRIG ONE (09:00)
[2019-01-03] MEDS ORDERED: DIAZEPAM 5 MG TABLET PO ONE (09:00)
[2019-01-03] MEDS: ACETAMINOPHEN 325 MG TABLET PO PRN (14:07)
[2019-01-03] MEDS: ENOXAPARIN 120 MG/0.8 ML SYRINGE SUBCUT SCH ×2 (14:07→22:05)
[2019-01-03] MEDS: MIRTAZAPINE 30 MG TABLET PO SCH (21:00)
[2019-01-04] MEDS: LEVALBUTEROL 1.25 MG/3 ML NEB RESP TX SCH ×5 (00:37→19:25)
[2019-01-04] MEDS ORDERED: MIDAZOLAM 2 MG/2 ML VIAL ONE (07:19)
[2019-01-04] MEDS ORDERED: PROMETHAZINE 25 MG/1 ML VIAL IM ONE (07:30)
[2019-01-04] MEDS ORDERED: MEPERIDINE 25 MG/1 ML VIAL IM ONE (07:30)
[2019-01-04] MEDS ORDERED: DIGOXIN 0.25 MG TABLET PO ONE ×2 (08:00→15:00)
[2019-01-04] MEDS ORDERED: LIDOCAINE 2% 20 ML VIAL RESP TX ONE (08:00)
[2019-01-04] MEDS ORDERED: LIDOCAINE 2% VISCOUS 100 ML BOTTLE SWISH/SPIT ONE (08:00)
[2019-01-04] MEDS ORDERED: MIDAZOLAM 2 MG/2 ML VIAL IV ONE (08:00)
[2019-01-04] MEDS ORDERED: LIDOCAINE 1% 20 ML VIAL MISC INJ ONE (08:00)
[2019-01-04] MEDS: predniSONE 20 MG TABLET PO SCH (11:41)
[2019-01-04] MEDS: POTASSIUM CHLORIDE 20 MEQ TABLET PO SCH ×2 (11:41→20:58)
[2019-01-04] MEDS: FAMOTIDINE 20 MG TABLET PO SCH ×2 (11:42→20:57)
[2019-01-04] MEDS: DILTIAZEM 60 MG TABLET PO SCH ×3 (11:42→20:54)
[2019-01-04] MEDS: CALCIUM CARBONATE CHEW 500 MG TABLET PO SCH ×2 (11:42→20:57)
[2019-01-04] MEDS: PANTOPRAZOLE 40 MG TABLET PO SCH (11:42)
[2019-01-04] MEDS: POLYETHYLENE GLYCOL POWDER 17 GM PACK PO SCH ×2 (11:43→20:58)
[2019-01-04] MEDS: FERROUS SULFATE ER 140 MG TABLET PO SCH ×2 (11:43→20:54)
[2019-01-04] MEDS: ASPIRIN CHEW 81 MG TABLET PO SCH (11:43)
[2019-01-04] MEDS: BUDESONIDE/FORMOTEROL 160-4.5 INHALER 6 GM INH SCH (11:44)
[2019-01-04] MEDS: CITALOPRAM 40 MG TABLET PO SCH (11:44)
[2019-01-04] MEDS: FUROSEMIDE 40 MG/4 ML VIAL IV SCH (11:44)
[2019-01-04] MEDS: THEOPHYLLINE ER (24 HR) 400 MG CAPSULE PO SCH (11:44)
[2019-01-04] MEDS: ENOXAPARIN 120 MG/0.8 ML SYRINGE SUBCUT SCH ×2 (11:44→20:58)
[2019-01-04] MEDS: METOPROLOL TARTRATE 50 MG TABLET PO SCH ×2 (16:00→20:58)
[2019-01-04] MEDS: ZINC OXIDE 16% PASTE 57 GM TUBE TOP SCH ×2 (16:24→20:58)
[2019-01-04] MEDS: NYSTATIN OINT 15 GM TUBE TOP SCH ×2 (16:31→22:12)
[2019-01-04] MEDS: MIRTAZAPINE 30 MG TABLET PO SCH (20:56)
[2019-01-04] MEDS: ACETAMINOPHEN 325 MG TABLET PO PRN (20:57)
[2019-01-05] MEDS: LEVALBUTEROL 1.25 MG/3 ML NEB RESP TX SCH ×9 (00:33→23:32)
[2019-01-05 05:57] LABS: Calcium 8.8 MG/DL (8.5-10.1)
[2019-01-05] MEDS: BUDESONIDE/FORMOTEROL 160-4.5 INHALER 6 GM INH SCH (09:24)
[2019-01-05] MEDS: THEOPHYLLINE ER (24 HR) 400 MG CAPSULE PO SCH (09:25)
[2019-01-05] MEDS: FERROUS SULFATE ER 140 MG TABLET PO SCH ×2 (09:25→21:24)
[2019-01-05] MEDS: ENOXAPARIN 120 MG/0.8 ML SYRINGE SUBCUT SCH ×2 (09:25→21:23)
[2019-01-05] MEDS: POTASSIUM CHLORIDE 20 MEQ TABLET PO SCH ×2 (09:26→21:25)
[2019-01-05] MEDS: ASPIRIN CHEW 81 MG TABLET PO SCH (09:26)
[2019-01-05] MEDS: DIGOXIN 0.25 MG TABLET PO SCH (09:26)
[2019-01-05] MEDS: CITALOPRAM 40 MG TABLET PO SCH (09:29)
[2019-01-05] MEDS: DILTIAZEM 90 MG TABLET PO SCH ×3 (09:30→21:24)
[2019-01-05] MEDS: predniSONE 20 MG TABLET PO SCH (09:30)
[2019-01-05] MEDS: POLYETHYLENE GLYCOL POWDER 17 GM PACK PO SCH ×2 (09:30→21:23)
[2019-01-05] MEDS: FAMOTIDINE 20 MG TABLET PO SCH ×2 (09:30→21:25)
[2019-01-05] MEDS: PANTOPRAZOLE 40 MG TABLET PO SCH (09:30)
[2019-01-05] MEDS: CALCIUM CARBONATE CHEW 500 MG TABLET PO SCH ×2 (09:30→21:24)
[2019-01-05] MEDS: FUROSEMIDE 40 MG/4 ML VIAL IV SCH (09:31)
[2019-01-05] MEDS ORDERED: DIGOXIN 0.25 MG TABLET PO ONE (09:56)
[2019-01-05] MEDS: NYSTATIN OINT 15 GM TUBE TOP SCH ×2 (11:30→21:33)
[2019-01-05] MEDS: ZINC OXIDE 16% PASTE 57 GM TUBE TOP SCH ×2 (11:30→21:30)
[2019-01-05] MEDS: DILTIAZEM 60 MG TABLET PO SCH (11:47)
[2019-01-05] MEDS: METOPROLOL TARTRATE 50 MG TABLET PO SCH (13:51)
[2019-01-05] MEDS: ACETAMINOPHEN 325 MG TABLET PO PRN (14:05)
[2019-01-05] MEDS: ACETYLCYSTEINE 20% 800 MG/4 ML VIAL RESP TX SCH (19:40)
[2019-01-05] MEDS: MIRTAZAPINE 30 MG TABLET PO SCH (21:24)
[2019-01-06] MEDS: METOPROLOL TARTRATE 50 MG TABLET PO SCH ×3 (00:41→21:34)
[2019-01-06] MEDS: LEVALBUTEROL 1.25 MG/3 ML NEB RESP TX SCH ×6 (02:32→23:35)
[2019-01-06] MEDS: ACETYLCYSTEINE 20% 800 MG/4 ML VIAL RESP TX SCH ×4 (02:32→19:44)
[2019-01-06] MEDS: ACETAMINOPHEN 325 MG TABLET PO PRN ×2 (04:20→09:32)
[2019-01-06] MEDS: CALCIUM CARBONATE CHEW 500 MG TABLET PO SCH ×2 (09:27→20:52)
[2019-01-06] MEDS: POTASSIUM CHLORIDE 20 MEQ TABLET PO SCH ×2 (09:27→20:53)
[2019-01-06] MEDS: PANTOPRAZOLE 40 MG TABLET PO SCH (09:28)
[2019-01-06] MEDS: predniSONE 20 MG TABLET PO SCH (09:28)
[2019-01-06] MEDS: THEOPHYLLINE ER (24 HR) 400 MG CAPSULE PO SCH (09:28)
[2019-01-06] MEDS: FERROUS SULFATE ER 140 MG TABLET PO SCH ×2 (09:28→20:52)
[2019-01-06] MEDS: CITALOPRAM 40 MG TABLET PO SCH (09:29)
[2019-01-06] MEDS: FAMOTIDINE 20 MG TABLET PO SCH ×2 (09:30→20:54)
[2019-01-06] MEDS: DILTIAZEM 90 MG TABLET PO SCH ×3 (09:30→20:53)
[2019-01-06] MEDS: DIGOXIN 0.25 MG TABLET PO SCH (09:31)
[2019-01-06] MEDS: ENOXAPARIN 120 MG/0.8 ML SYRINGE SUBCUT SCH ×2 (09:31→20:52)
[2019-01-06] MEDS: FUROSEMIDE 40 MG/4 ML VIAL IV SCH (09:31)
[2019-01-06] MEDS: ASPIRIN CHEW 81 MG TABLET PO SCH (09:31)
[2019-01-06] MEDS: BUDESONIDE/FORMOTEROL 160-4.5 INHALER 6 GM INH SCH (09:32)
[2019-01-06] MEDS: POLYETHYLENE GLYCOL POWDER 17 GM PACK PO SCH ×3 (09:33→20:54)
[2019-01-06] MEDS: ZINC OXIDE 16% PASTE 57 GM TUBE TOP SCH ×2 (10:19→20:55)
[2019-01-06] MEDS: NYSTATIN OINT 15 GM TUBE TOP SCH ×2 (10:19→20:55)
[2019-01-06] MEDS: LEVOFLOXACIN INJ 750 MG in PREMIX 1 EACH IV SCH (15:17)
[2019-01-06] MEDS: MIRTAZAPINE 30 MG TABLET PO SCH (20:54)
[2019-01-07] MEDS: ACETYLCYSTEINE 20% 800 MG/4 ML VIAL RESP TX SCH ×2 (02:42→07:05)
[2019-01-07] MEDS: LEVALBUTEROL 1.25 MG/3 ML NEB RESP TX SCH ×6 (02:42→22:24)
[2019-01-07 06:31] LABS: Basophils # 0.1 10*3/uL (0.0-0.2); Basophils % 0.7 % (0.0-0.8); Eosinophils % 0.1 % (0.00-10.9); Hematocrit 30.5 VOL% (35.7-47.0); Immature Granulocytes % 6.9 %; Immature Granulocytes Absolute 0.59 #; Lymphocytes # 1.6 10*3/uL (1.4-4.0); Lymphocytes % 18.3 % (21.3-54.2); Mean Corpuscular HGB Conc 29.5 GM/DL (32-36); Mean Corpuscular Volume 93.8 FL (87-102); Mean Platelet Volume 10.1 FL (9.6-12.0); Monocytes % 9.6 % (1.7-12.7); Neutrophils % 64.4 % (38.7-73.9); Platelet Count 377 T/CUMM (130-400); Red Blood Count 3.25 MC/CUMM (3.8-5.5); Red Cell Distribution Width 18.5 % (9.3-17.3); White Blood Count 8.5 T/CUMM (4-12)
[2019-01-07 06:52] LABS: Hypochromasia 1+; Lymphocytes 18 % (20-55); Platelet Estimate Adequate; Segmented Neutrophils 76 % (50-85); Total Cells Counted 100
[2019-01-07 06:53] LABS: Microcytosis 1+
[2019-01-07 07:10] LABS: Calcium 9.1 MG/DL (8.5-10.1); Osmolality,Calculated 284.1 MOS/KG (273-304)
[2019-01-07] MEDS: CALCIUM CARBONATE CHEW 500 MG TABLET PO SCH ×2 (10:15→20:46)
[2019-01-07] MEDS: DILTIAZEM 90 MG TABLET PO SCH ×3 (10:15→20:49)
[2019-01-07] MEDS: BUDESONIDE/FORMOTEROL 160-4.5 INHALER 6 GM INH SCH (10:15)
[2019-01-07] MEDS: FAMOTIDINE 20 MG TABLET PO SCH ×2 (10:16→20:46)
[2019-01-07] MEDS: CITALOPRAM 40 MG TABLET PO SCH (10:16)
[2019-01-07] MEDS: PANTOPRAZOLE 40 MG TABLET PO SCH (10:16)
[2019-01-07] MEDS: THEOPHYLLINE ER (24 HR) 400 MG CAPSULE PO SCH (10:16)
[2019-01-07] MEDS: FERROUS SULFATE ER 140 MG TABLET PO SCH ×2 (10:16→20:48)
[2019-01-07] MEDS: predniSONE 20 MG TABLET PO SCH (10:17)
[2019-01-07] MEDS: POTASSIUM CHLORIDE 20 MEQ TABLET PO SCH ×2 (10:17→20:46)
[2019-01-07] MEDS: ENOXAPARIN 120 MG/0.8 ML SYRINGE SUBCUT SCH ×2 (10:17→20:50)
[2019-01-07] MEDS: DIGOXIN 0.25 MG TABLET PO SCH (10:17)
[2019-01-07] MEDS: ASPIRIN CHEW 81 MG TABLET PO SCH (10:17)
[2019-01-07] MEDS: ZINC OXIDE 16% PASTE 57 GM TUBE TOP SCH ×2 (10:18→20:50)
[2019-01-07] MEDS: POLYETHYLENE GLYCOL POWDER 17 GM PACK PO SCH ×2 (10:18→20:50)
[2019-01-07] MEDS: METOPROLOL TARTRATE 50 MG TABLET PO SCH ×2 (10:18→20:49)
[2019-01-07] MEDS: NYSTATIN OINT 15 GM TUBE TOP SCH ×2 (10:18→20:50)
[2019-01-07] MEDS: FUROSEMIDE 40 MG/4 ML VIAL IV SCH (10:22)
[2019-01-07] MEDS: ACETAMINOPHEN 325 MG TABLET PO PRN (15:50)
[2019-01-07] MEDS: LEVOFLOXACIN INJ 750 MG in PREMIX 1 EACH IV SCH (15:52)
[2019-01-07] MEDS: DORNASE ALFA 2.5 MG/2.5 ML VIAL RESP TX SCH (19:07)
[2019-01-07] MEDS: MIRTAZAPINE 30 MG TABLET PO SCH (20:47)
[2019-01-08] MEDS: LEVALBUTEROL 1.25 MG/3 ML NEB RESP TX SCH ×2 (05:30→07:51)
[2019-01-08] MEDS ORDERED: MEPERIDINE 25 MG/1 ML VIAL IM ONE (07:00)
[2019-01-08] MEDS ORDERED: PROMETHAZINE 25 MG/1 ML VIAL IM ONE (07:00)
[2019-01-08] MEDS ORDERED: MIDAZOLAM 2 MG/2 ML VIAL ONE (07:13)
[2019-01-08] MEDS ORDERED: LIDOCAINE 2% 20 ML VIAL RESP TX ONE (07:30)
[2019-01-08] MEDS ORDERED: MIDAZOLAM 2 MG/2 ML VIAL IV ONE (07:30)
[2019-01-08] MEDS ORDERED: LIDOCAINE 1% 20 ML VIAL MISC INJ ONE (07:30)
[2019-01-08] MEDS ORDERED: LIDOCAINE 2% VISCOUS 100 ML BOTTLE SWISH/SPIT ONE (07:30)
[2019-01-08] MEDS: ALBUTEROL/IPRATROPIUM 3 ML NEB RESP TX SCH ×3 (07:45→16:00)
[2019-01-08] MEDS: DORNASE ALFA 2.5 MG/2.5 ML VIAL RESP TX SCH (07:52)
[2019-01-08] MEDS ORDERED: FUROSEMIDE 40 MG TABLET PO SCH (09:00)
[2019-01-08] MEDS: ENOXAPARIN 120 MG/0.8 ML SYRINGE SUBCUT SCH (10:17)
[2019-01-08] MEDS: BUDESONIDE/FORMOTEROL 160-4.5 INHALER 6 GM INH SCH (10:19)
[2019-01-08] MEDS: FAMOTIDINE 20 MG TABLET PO SCH (10:19)
[2019-01-08] MEDS: CALCIUM CARBONATE CHEW 500 MG TABLET PO SCH (10:19)
[2019-01-08] MEDS: PANTOPRAZOLE 40 MG TABLET PO SCH (10:20)
[2019-01-08] MEDS: FERROUS SULFATE ER 140 MG TABLET PO SCH (10:21)
[2019-01-08] MEDS: THEOPHYLLINE ER (24 HR) 400 MG CAPSULE PO SCH (10:21)
[2019-01-08] MEDS: predniSONE 20 MG TABLET PO SCH (10:21)
[2019-01-08] MEDS: ASPIRIN CHEW 81 MG TABLET PO SCH (10:21)
[2019-01-08] MEDS: POTASSIUM CHLORIDE 20 MEQ TABLET PO SCH (10:21)
[2019-01-08] MEDS: DILTIAZEM 90 MG TABLET PO SCH ×2 (10:22→15:37)
[2019-01-08] MEDS: DIGOXIN 0.25 MG TABLET PO SCH (10:23)
[2019-01-08] MEDS: NYSTATIN OINT 15 GM TUBE TOP SCH (10:24)
[2019-01-08] MEDS: METOPROLOL TARTRATE 50 MG TABLET PO SCH (10:24)
[2019-01-08] MEDS: ZINC OXIDE 16% PASTE 57 GM TUBE TOP SCH (10:24)
[2019-01-08] MEDS: POLYETHYLENE GLYCOL POWDER 17 GM PACK PO SCH (10:26)
[2019-01-08] MEDS: CITALOPRAM 40 MG TABLET PO SCH (10:28)
[2019-01-08] MEDS: LEVOFLOXACIN INJ 750 MG in PREMIX 1 EACH IV SCH (15:38)
[2019-01-08 16:13] VITALS: BP 100/50
== END 2019-01-08 16:30 | DRG 190 ==
LOC: N.ED 14:14 → SUATTDRO 16:17 → N.EDINP 16:17 → N.5E 17:37 → N.ICU 12-29 16:49 → N.2E 12-31 13:32
PROVIDERS: ADMIT Internal Medicine; ATTEND Internal Medicine